=== PATIENT | male | born 1975 | race Caucasian/White ===

== ENCOUNTER → 2019-04-29 15:52 | Outpatient (CLI) | payer OTHER, SELFPAY ==
[2019-04-29 18:37] LABS: CRP < 2.90 mg/L (0.0-3.0)
[2019-05-01 16:08] LABS: Endomysial Antibody IgA Negative (Negative)
[2019-05-01 19:49] LABS: Immunoglobulin A 316 mg/dL (90-386); t-Transglutaminase IgA <2 U/mL (0-3)
== END ==
PROVIDERS: PCP Family Medicine; Referring Provider Internal Medicine Gastroenterology; Visit Provider Internal Medicine Gastroenterology
DX: R10.9 Unspecified abdominal pain (principal); R19.7 Diarrhea, unspecified
CPT/HCPCS: 36415; 82784; 83516; 86140; 86255

== ENCOUNTER → 2024-04-29 | Outpatient (CLI) | payer BC, SELFPAY ==
--- NOTE | 2024-04-29 12:37 | MRI_ITS ---
PROCEDURE: PELVIS W/WO CONTRAST ([id number]), 04/29/2024 REASON FOR EXAM: planning for XRT, eval extent of disease TECHNIQUE: Multisequence multiplanar MRI pelvis was performed with and without IV contrast. CONTRAST: 19 mL Clariscan COMPARISON: Outside exam 02/09/2024. Images only are available for review; the report is not available. Comparison is also made with [facility] PET/CT 04/02/2024. FINDINGS: Note dynamic postcontrast imaging was not performed; an alternative PI-RADS algorithm was therefore utilized. Exam additionally limited by T1 bright presumed post biopsy/procedural blood products scattered throughout the gland. Variable overall mild motion limitation. The effect of these limitations is exacerbated by the small size of the gland. Prostate size: 3.5 x 3.2 x 3.6 cm, estimated volume 21 mL. Interval placement of spacing material which infiltrates through along periprostatic tissue planes on the right with a considerable portion being located in the lateral and anterolateral regions, only a small amount remains situated between the anterior rectum and posterior prostate, which remain directly apposed or near indirectly opposed to the left of midline. Fiducial markers suspected. Transition zone: PI-RADS 2 findings. 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 This is more conspicuous than on 02/09/2024 and was without definite abnormal uptake on comparison PET/CT. *T2 score: Borderline; felt best considered T2 score 3 *DWI score: 3 *DCE: N/A. *Overall PI-RADS: Borderline; felt the best considered PI-RADS 3. *Extracapsular extension:No gross extracapsular extension, however, there is capsular abutment greater than 1 cm which increases the risk of occult early/microscopic extracapsular extension. Note that this includes abutment of the bladder neck without definite invasion. Peripheral Zone: Fairly considerable multifocal background changes of likely prostatitis and/or presumed blood products with areas of mild restricted diffusion, technically meeting criteria for PI-RADS 3 and making delineation of additional discrete lesions challenging (for example,: *Lesion 2: More discrete diffusion signal in the right posterior peripheral zone centered at the level of the midgland to apex, roughly 1.4 cm (series 8, image 18-20). This appears to correlate with the focus of uptake on comparison PET/CT. *T2 score: 4 *DWI score: 3 *DCE: N/A. *Overall PI-RADS: PI-RADS 3 *Extracapsular extension:No gross extracapsular extension, however, there is capsular abutment greater than 1 cm which increases the risk of occult early/microscopic extracapsular extension. Note that this includes the region of the right neurovascular bundle, which appears grossly unremarkable. Neurovascular bundles: As above. Seminal vesicles: Unremarkable. Bladder: Unremarkable. Lymph nodes: Unremarkable. Bones: Heterogeneous marrow signal without destructive or frankly suspicious bony lesions identified. Other: Tiny fat containing left inguinal hernia. Suspected at least a trace right hydrocele.. MRI/Pelvis W/WO Contrast IMPRESSION: 1. Exam limited by presumed postprocedural blood products, small size of the gl and, and ill-defined signal abnormalities throughout the peripheral zone making delineation of discrete lesions challengi ng. 2. Interval placement of spacing material, much of which infiltrates along jayjay prostatic tissue planes on the right with a considerable portion being located in the lateral and anterolateral regions. A small amount remains situated between the anterior rectum and posterior prostate. 3. Ill-defined 1.4 cm PI-RADS 3 lesion in the right posterior peripheral zone c entered at the level of the midgland to apex (lesion 2). This appears to correlate with the focus of uptake on comparison P ET/CT. 4. 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 This is more conspicuous than on the outside exam of 02/09/2024 and demonstrated no definite abnormal uptake on comparison PET/CT. 5. Background multifocal signal abnormalities throughout the remainder of the p eripheral zones which may reflect sequela of prostatitis and/or presumed postprocedural blood products, however technically also borderline meeting criteria for PI-RADS 3, although less convincing than the above lesions 1-2 and very difficult to discr etely measure. 6. No gross extracapsular extension, however, there is capsular abutment greate r than 1 cm by lesions 1 and 2 which increases the risk of occult early/microscopic extracapsular extension. Note that this includ es the region of the right neurovascular bundle and abutment of the bladder neck, without gross invasion of either structure. 7. No overt pelvic lymphadenopathy. 8. Additional description as above. Reading Location: [id number]
== END | disposition home or self-care (01) ==
LOC: MRI 12:27
PROVIDERS: PCP Family Medicine; Referring Provider Student in an Organized Health Care Education/Training Program; Visit Provider Student in an Organized Health Care Education/Training Program
DX: C61 Malignant neoplasm of prostate (principal)
CPT/HCPCS: 72197; A9575; A4216

== ENCOUNTER → 2024-09-20 | Outpatient (CLI) | payer BC, SELFPAY ==
--- OUTSIDE RECORDS SUMMARY | 2024-09-20 07:33 | XMS RPT_ITS | CCD ---
[facility] Organization [facility] Team Providers Care Appeals Nurse Name Role Phone Deacon Harper Unavailable Unavailable FurnessRafy Unavailable Unavailable Deacon Harper Unavailable Deacon Harper Unavailable Arthur Bethea Unavailable Unavailable Arthur Bethea Attending Unavailable Dr. Deacon Harper Jus Primary Care Unava ilable Deacon Harper MD Primary Care Provider [phone] Deacon Harper MD Unavailable [phone] Deacon Harper MD Unavailable [phone] Deacon Harper MD Primary Care Provider [phone] Deacon Harper MD Primary Care Provider [phone] DEACON HARPER Primary Care Unavailable DEACON HARPER Primary Care Unavailable Deacon Harper MD Unavailable [phone] Deacon Harper MD Primary Care Provider [phone] Dr. Deacon Harper MD Primary Care Provider [phone] Maria Porter LPN Attending Provider Unavailab le Dr. Alex Lopez DO Attending Provider Dr. Irena Edouard MD Referring Provider Dr. Alex Lopez DO Referring Provider Deacon Harper MD Unavailable [phone] Deacon Harper MD Primary Care Provider Dr. Alex Lopez DO Referring Provider Dr. Deacon Harper MD Referring Provider [phone] DEACON HARPER Attending Unavailable DEACON HARPER Primary Care Unavailable IRENA EDOUARD Attending Unavailable EDOUARDIRENA Attending Unavailable EDOUARD, IRENA Dasilva Attending Unavailable EDOUARD, IRENA Dasilva Attending Unavailable STENCEL, DEACON Dyson Primary Care Unavailable EDOUARD, IRENA Dasilva Attending Unavailable STENCEL, DEACON Dyson Primary Care Unavailable STENCEL, DEACON D Attending Unavailable STENCEL, DEACON D Referring Unavailable STENCEL, DEACON D Primary Care Unavailable STENCEL, DEACON D Referring Unavailable STENCEL, DEACON D Primary Care Unavailable EDOUARD, IRENA Dasilva Referring Unavailable STENCEL, DEACON Dyson Primary Care Unavailable EDUOARD, IRENA Dasilva Admitting Unavailable EDOUARD, IRENA Dasilva Attending Unavailable STENCEL, DEACON D Primary Care Unavailable EDOUARD, IRENA Dasilva Admitting Unavailable EDOUARD, IRENA Dasilva Attending Unavailable STENCEL, DEACON D Primary Care Unavailable Jessica, Alex Attending Unavailable Jessica, Alex Referring Unavailable Stencel, Deacon Primary Care Unavailable Jessica, Alex Attending Unavailable Jessica, Alex Referring Unavailable Stencel, Deacon Primary Care Unavailable Jessica, Alex Attending Unavailable Jessica, Alex Referring Unavailable Stencel, Deacon Primary Care Unavailable Jessica, Alex Attending Unavailable Stencel, Deacon Primary Care Unavailable Jessica, Alex Referring Unavailable Jessica, Alex Attending Unavailable Jessica, Alex Referring Unavailable Stencel, Deacon Primary Care Unavailable Jessica, Alex Attending Unavailable Jessica, Alex Referring Unavailable Stencel, Deacon Primary Care Unavailable Jessica, Alex Attending Unavailable Stencel, Deacon Primary Care Unavailable Jessica, Alex Referring Unavailable Jessica, Alex Attending Unavailable Stencel, Deacon Primary Care Unavailable Stencel, Deacon Referring Unavailable Jessica, Alex Attending Unavailable Stencel, Deacon Primary Care Unavailable Irena Edouard, II Referring Unavailable Jessica, Alex Attending Unavailable Jessica, Alex Referring Unavailable Stencel, Deacon Primary Care Unavailable Jessica, Alex Attending Unavailable Jessica, Alex Referring Unavailable Stencel, Deacon Primary Care Unavailable Jessica, Alex Attending Unavailable Jessica, Alex Referring Unavailable Stencel, Deacon Primary Care Unavailable Jessica, Alex Attending Unavailable Stencel, Deacon Primary Care Unavailable Jessica, Alex Referring Unavailable Jessica, Alex Attending Unavailable Stencel, Deacon Primary Care Unavailable Stencel, Deacon Primary Care Unavailable Maria Porter Attending Unavailable Medications Current Medications Medication Drug Class(es) Dates Sig (Normalized) Sig (Original) amoxicillin 875 mg / clavulanate 125 mg oral tablet (1 source) Penicillin-class Antibacterial Start: 03-10-2022 End: 03-19-2022 take 1 tablet by mouth twice daily at mealtime amoxicillin-clav ulanate 875 mg-125 mg oral tablet ; 875 milligram(s) orally 2 times a day Quantity: 20 Refills: 0 Ordered: 10-Mar-2022 Arthur Bethea Start: 10-Mar-2022 End: 19-Mar-2022 Generic Substitution Allowed Comments: Finish all this medication unless otherwise directed by prescriber.Take with food or milk. Comment on above: Finish all this medi cation unless otherwise directed by prescriber.Take with food or milk. calcium chloride 0.0014 meq/ml / potassium chloride 0.004 meq/ml / sodium chloride 0.103 meq/ml / sodium lactate 0.028 meq/ml injectable solution (3 sources) Start: 04-23-2024 End: 04-24-2024 take 125 mL intravenously every hour 125 mL/hr, intravenous, Continuous, Starting on Mon04/23/24 at 1230, For 1 day, Recovery (only) Start: 03-05-2024 End: 03-06-2024 take 100 mL intravenously every hour 100 mL/hr, intravenous, Continuous, Starting on Mon03/05/24 at 1145, For 1 day, Recovery (only) ciprofloxacin 500 mg oral tablet (2 sources) Quinolone Antimicrobial Start: 04-23-2024 End: 04-26-2024 take 0.5 tablet by mouth twice daily ciprofloxacin (Cipro) 500 mg tablet Indications: Malignant neoplasm of prostate (Multi) Take 0.5 tablets (250 mg) by mouth 2 times a day for 3 days. 3 tablet 04/23/2024 04/26/2024 Active Start: 02-19-2024 End: 02-22-2024 take 1 tablet by mouth twice daily ciprofloxacin (Cipro) 500 mg tablet Indications: Elevated PSA Take 1 tablet (500 mg) by mouth 2 times a day for 3 days. 6 tablet 02/19/2024 02/22/2024 Active doxycycline hyclate 100 mg oral capsule (1 source) Tetracycline-class Drug Start: 11-14-2023 End: 11-24-2023 doxycycline (Vibramycin) 100 mg capsule Indications: Right inguinal pain Take 1 capsule (100 mg) by mouth 2 times a day for 10 days. Take with at least 8 ounces (large glass) of water, do not lie down for 30 minutes after 20 capsule 1 11/14/2023 11/24/2023 Active 0.5 ml HYDROmorphone hydrochloride 1 mg/ml prefilled syringe (1 source) Opioid Agonist Start: 04-23-2024 0.5 mg, intravenous, Every 5 min PRN, pain severe (7-10), first line, Starting on Mon04/23/24 at 1207, Recovery (only) ibuprofen 600 mg oral tablet (1 source) Nonsteroidal Anti-inflammatory Drug Start: 12-04-2023 End: 12-14-2023 take 1 tablet by mouth twice daily ibuprofen 600 mg tablet Indications: Prostatitis, unspecified prostatitis type Take 1 tablet (600 mg) by mouth 2 times a day for 10 days. 20 tablet 12/04/2023 12/14/2023 Active labetalol hydrochloride 5 mg/ml injectable solution (1 source) beta-Adrenergic Almita Start: 03-05-2024 5 mg, intravenous, Administer over 1 Minutes, Once as needed, systolic blood pressure greater than 180 mmHg, dystolic blood pressure greater than 100 mmHg and heart rate greater than 60 BPM, Starting on Mon03/05/24 at 1119, For 1 dose, Recovery (only) 1 ml morphine sulfate 4 mg/ml prefilled syringe (2 sources) Opioid Agonist Start: 03-05-2024 4 mg, intravenous, Every 5 min PRN, pain severe (7-10), first line, Starting on Mon03/05/24 at 1119, Recovery (only), Max total of 20 mg regardless of dose. Start: 03-05-2024 2 mg, intraven ous, Every 5 min PRN, pain moderate (4-6), first line, Starting on Mon03/05/24 at 1119, Recovery (only), Max total of 20 mg regardless of dose. Multivitamin tablet (1 source) Start: 06-13-2024 Multivitamin tablet Active 1 {tbl} PO daily June 13, 2024 12:00am 2 ml ondansetron 2 mg/ml injection (1 source) Serotonin-3 Receptor Antagonist Start: 03-05-2024 4 mg, intravenous, Once as needed, nausea/vomiting, first line, Starting on Mon03/05/24 at 1119, For 1 dose, Recovery (only), When administering via IV Push, administer over 3-5 minutes. oxyCODONE hydrochloride 5 mg oral tablet (1 source) Opioid Agonist Start: 03-05-2024 take 1 tablet by mouth every four hours as needed 5 mg, oral, Every 4 hours PRN, pain mild (1-3), first line, Starting on Mon03/05/24 at 1119, Recovery (only), When able to take oral medications., If ordered PRN for pain, nurse is permitted to administer this medication for higher pain scores based on patient preference? Yes oxygen (O2) therapy (1 source) Start: 04-23-2024 inhalation, Continuous - Inhalation, First dose on Mon04/23/24 at 1230, Recovery (only), Device: Simple Face Mask, Rate in Liters per minute: 8 LPM prochlorperazine 5 mg/ml injectable solution (1 source) Phenothiazine Start: 04-23-2024 take 10 mg intravenously every eight hours as needed 10 mg, intravenous, Every 8 hours PRN, nausea/vomiting, first line, Starting on Mon04/23/24 at 1207, Recovery (only) promethazine (Phenergan) 6.25 mg in sodium chloride 0.9% 50 mL IV (1 source) Start: 03-05-2024 6.25 mg, intravenous, Administer over 15 Minutes, Once as needed, Nausea/vomiting, second line, Starting on Mon03/05/24 at 1119, For 1 dose, Recovery (only) Relugolix (1 source) Start: 05-21-2024 take 1 tablet by mouth once daily Relugolix (Orgovyx) 120 mg tablet Active 120 mg PO daily May 21, 2024 12:00am relugolix (Orgovyx) 120 mg tablet (2 sources) Start: 05-09-2024 relugolix (Orgovyx) 120 mg tablet Indications: Prostate cancer C61 Take 3 tabs day 1, then 1 po daily 90 tablet 1 05/09/2024 Active sulfamethoxazole 800 mg / trimethoprim 160 mg oral tablet (4 sources) Dihydrofolate Reductase Inhibitor Antibacterial, Sulfonamide Antimicrobial Start: 01-30-2024 End: 02-29-2024 take 1 tablet by mouth once daily sulfamethoxazole- trimethoprim (Bactrim DS) 800-160 mg tablet Indications: Elevated PSA Take 1 tablet by mouth once daily. 30 tablet 01/30/2024 02/29/2024 Active Start: 12-04-2023 End: 01-10-2024 take 1 tablet by mouth twice daily, then take 1 tablet by mouth once daily sulfamethoxazole-trimethoprim (Bactrim D S) 800-160 mg tablet Indications: Prostatitis, unspecified prostatitis type Take 1 tablet BID x 10 days then 1 tablet PO Q DAILY X21 DAYS 41 tablet 12/04/2023 01/10/2024 Discontinued (Med List Cleanup) tadalafil 5 mg oral tablet (3 sources) Phosphodiesterase 5 Inhibitor Start: 07-08-2024 End: 07-08-2025 take 1 tablet by mouth once daily tadalafil (Cialis) 5 mg tablet Indications: Malignant neoplasm of prostate (Multi) Take 1 tablet (5 mg) by mouth once daily. 30 tablet 11 07/08/2024 07/08/2025 Active Completed/Discontinued Medications Medication Drug Class(es) Dates Sig (Normalized) Sig (Original) acetaminophen 325 mg / HYDROcodone bitartrate 5 mg oral tablet (8 sources) Opioid Agonist Start: 04-23-2024 End: 07-08-2024 take 1 tablet by mouth every six hours for pain HYDROcodone-acetami nophen ([place]) 5-325 mg tablet Indications: Malignant neoplasm of prostate (Multi) Take 1 tablet by mouth every 6 hours if needed for severe pain (7 - 10). 20 tablet 04/23/2024 07/08/2024 Discontinued (Med List Cleanup) Start: 03-05-2024 End: 07-08-2024 Hydrocodone-Acetaminophen 5- 325 mg tablet Discontinued 1 {tbl} PO EVERY 6 HOURS as needed March 20, 2024 1:00am March 22, 2024 11:25am [id number] 200 actuat albuterol 0.09 mg/actuat metered dose inhaler (1 source) beta2-Adrenergic Agonist Start: 03-10-2022 take 2 puff(s) by inhalation twice daily as needed for cough albuterol 90 mcg/inh inhalation aerosol ; 2 puff(s) inhaled 2 times a day as needed for cough Quantity: 8.5 Refills: 0 Ordered: 10-Mar-2022 Arthur Bethea Start: 10-Mar-2022 Generic Substitution Allowed Comments: For inhalation only.It is very important that you take or use this exactly as directed. Do not skip doses or discontinue unless directed by your doctor.Obtain medical advice before taking any non-prescription drugs as some may affect the action of this medication.Shake well before use. Comment on above: For inhalation only.It is very important that you take or use this exactly as directed. Do not skip doses or discontinue unless directed by your doctor.Obtain medical advice before taking any non-prescription drugs as some may affect the action of this medication.Shake well before use. gadoterate meglumine (Dotarem) 0.5 mmol/mL contrast injection 19 mL (1 source) Start: 02-09-2024 End: 02-09-2024 inject 19 mL intravenously once 19 mL, intravenous, Once in imaging, Starting on Mon02/09/24 at 1709, For 1 dose, Administer undiluted as rapid I.V. bolus injection 100 ml levoFLOXacin 5 mg/ml injection (1 source) Quinolone Antimicrobial Start: 04-23-2024 End: 04-23-2024 500 mg, intravenous, at 100 mL/hr, Administer over 60 Minutes, Once, On Mon04/23/24 at 0945, For 1 dose, Intraprocedure, premix bag, Dosing of this medication varies based on severity of illness. Does this patient have sepsis or concern for sepsis (probable or documented infection plus systemic manifestations of infection)? No, Suspected Indication (Select all that apply): Surgical Prophylaxis, Indications: Surgical Prophylaxis No Reported Medications (3 sources) No Reported Medications Refills: 0 Active No Reported Medi cations Refills: 0 DO Active phenazopyridine hydrochloride 200 mg oral tablet (2 sources) Start: 04-23-2024 End: 07-08-2024 take 1 tablet by mouth three times daily as needed for muscle spasms phenazopyridine (Pyridium) 200 mg tablet Indications: Malignant neoplasm of prostate (Multi) Take 1 tablet (200 mg) by mouth 3 times a day as needed for bladder spasms. 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] Onset: 08-08-2022 08-08-2022 Chronic Headache; including migraine (1 source) Headache; including migraine; Translations: [Headache, unspecified] Onset: 03-10-2022 Hyperplasia of prostate (19 sources) Benign prostatic hyperplasia; Translations: [Benign prostatic hyperplasia without lower urinary tract symptoms] Onset: 12-04-2023 12-04-2023 Chronic Malaise and fatigue (4 sources) Other malaise; Translations: [Fatigue] Onset: 03-10-2022 01-25-2024 Episodic Other screening for suspected conditions (not mental disorders or infectious disease) (20 sources) Raised prostate specific antigen; Translations: [Elevated prostate specific antigen [PSA]] Onset: 01-25-2024 01-25-2024 Episodic Unclassified (2 sources) COUGH CONGESTION 03-10-2022 Comment on above: COUGH CONGESTION Unclassified (1 source) Cough, unspecified; Translations: [Cough, unspecified] Onset: 03-10-2022 Unclassified (2 sources) Patient encounter status 07-08-2024 Unclassified (4 sources) C61 - Malignant neoplasm of prostate; Translations: [C61 - Malignant neoplasm of prostate] Past or Other Problems Problem Classification Problem Date Documented Da te Episodic/Chronic Abdominal pain (19 sources) Generalized abdominal pain; Translations: [Generalized abdominal pain] Onset: 08-08-2022 08-08-2022 Episodic Acute bronchitis (3 sources) Acute bronchitis; Translations: [Acute bronchitis] Onset: 03-10-2022 03-10-2022 Episodic Fever of unknown origin (13 sources) Fever with chills; Translations: [Fever, unspecified] Onset: 08-08-2022 08-08-2022 Episodic Genitourinary symptoms and ill-defined conditions (17 sources) Nocturia; Translations: [Nocturia] Onset: 01-15-2024 12-04-2023 Episodic Inflammatory conditions of male genital organs (19 sources) Prostatitis; Translations: [Inflammatory disease of prostate, unspecified] Onset: 12-04-2023 12-04-2023 Episodic Other male genital disorders (12 sources) Painful ejaculation; Translations: [Painful ejaculation] Onset: 12-04-2023 12-04-2023 Episodic Other male genital disorders (1 source) Painful ejaculation; Translations: [Painful ejaculation] Onset: 12-04-2023 Episodic Unclassified (10 sources) Onset: 12-04-2023 Resolved: 01-10-2024 12-04-2023 Results Test Name Value Interpretation Reference Range Facility CT CARDIAC SCORING WO IV CON TRASTon 08-08-2024 CT CARDIAC SCORING WO IV CONTRAST Interpreted By: Chong Lind, STUDY: CT CARDIAC SCORING WO IV CONTRAST; 08/08/2024 9:43 am INDICATION: Signs/Symptoms:screen for cardiovascular disease. COMPARISON: None. ACCESSION NUMBER(S): [id number] ORDERING CLINICIAN: DEACON HARPER TECHNIQUE: Using prospective ECG gating, limited CT scan of the chest for evaluation of coronary arteries was performed without intravenous contrast. Coronary calcium scoring was performed according to the method of Agatston. FINDINGS: The score and distribution of calcium in the coronary arteries is as follows: LM: 0. LAD: 0. LCx: 0. RCA: 0. Total: 0. The visualized segments of the lungs are normally expanded. The visualized mid/lower ascending thoracic aorta measures 3.5 cm in diameter. The heart is normal in size. No significant pericardial effusion is present. No gross evidence of mediastinal or hilar lymphadenopathy is identified. The visualized subdiaphragmatic structures appear grossly intact. IMPRESSION: 1. Coronary artery calcium score of 0*. *Coronary artery calcium scoring may be helpful in predicting the risk for future coronary heart disease events. According to the [employer] Clinical Expert Consensus Task Force, such testing provides important prognostic information in patients with more than one coronary heart disease risk factor. The coronary artery calcium score correlates with the annual risk of a non-fatal myocardial infarction or coronary heart disease . Coronary artery score Annual Risk 0-99 0.4% 100-399 1.3% >400 2.4% These three breakpoints correspond to lower, intermediate and high risk states for future coronary events. Such information should be used, along with appropriate clinical judgment, to make decisions regarding the intensity of risk factor management strategies to treat blood lipids and to modify other non-lipid coronary risk factors. Reference: [place] P et al. Circulation. 2007; 115:402-426 MACRO: None Signed by: Chong Lind 08/08/2024 4:50 PM Dictation workstation: [id number] [facility] CT for calcium scoring WO co ntrast and CTA W contrast IV Heart and coronary arterieson 08-08-2024 1. Coronary artery calcium score of 0*. *Coronary artery calcium scoring may be helpful in predicting the risk for future coronary heart disease events. According to the [employer] Clinical Expert Consensus Task Force, such testing provides important prognostic information in patients with more than one coronary heart disease risk factor. The coronary artery calcium score correlates with the annual risk of a non-fatal myocardial infarction or coronary heart disease . Coronary artery score Annual Risk 0-99 0.4% 100-399 1.3% >400 2.4% These three breakpoints correspond to lower, intermediate and high risk states for future coronary events. Such information should be used, along with appropriate clinical judgment, to make decisions regarding the intensity of risk factor management strategies to treat blood lipids and to modify other non-lipid coronary risk factors. Reference: [place] P et al. Circulation. 2007; 115:402-426 MACRO: None Signed by: Chong Lind 08/08/2024 4:50 PM Dictation workstation: [id number] MMODAL Interpreted By: Chong Lind, STUDY: CT CARDIAC SCORING WO IV CONTRAST; 08/08/2024 9:43 am INDICATION: Signs/Symptoms:screen for cardiovascular disease. COMPARISON: None. ACCESSION NUMBER(S): [id number] ORDERING CLINICIAN: DEACON HARPER TECHNIQUE: Using prospective ECG gating, limited CT scan of the chest for evaluation of coronary arteries was performed without intravenous contrast. Coronary calcium scoring was performed according to the method of Agatston. FINDINGS: The score and distribution of calcium in the coronary arteries is as follows: LM: 0. LAD: 0. LCx: 0. RCA: 0. Total: 0. The visualized segments of the lungs are normally expanded. The visualized mid/lower ascending thoracic aorta measures 3.5 cm in diameter. The heart is normal in size. No significant pericardial effusion is present. No gross evidence of mediastinal or hilar lymphadenopathy is identified. The visualized subdiaphragmatic structures appear grossly intact. MMODAL Chong Lind, DO - 08/08/2024 Interpreted By: Chong Lind, STUDY: CT CARDIAC SCORING WO IV CONTRAST; 08/08/2024 9:43 am INDICATION: Signs/Symptoms:screen for cardiovascular disease. COMPARISON: None. ACCESSION NUMBER(S): [id number] ORDERING CLINICIAN: DEACON HARPER TECHNIQUE: Using prospective ECG gating, limited CT scan of the chest for evaluation of coronary arteries was performed without intravenous contrast. Coronary calcium scoring was performed according to the method of Agatston. FINDINGS: The score and distribution of calcium in the coronary arteries is as follows: LM: 0. LAD: 0. LCx: 0. RCA: 0. Total: 0. The visualized segments of the lungs are normally expanded. The visualized mid/lower ascending thoracic aorta measures 3.5 cm in diameter. The heart is normal in size. No significant pericardial effusion is present. No gross evidence of mediastinal or hilar lymphadenopathy is identified. The visualized subdiaphragmatic structures appear grossly intact. IMPRESSION: 1. Coronary artery calcium score of 0*. *Coronary artery calcium scoring may be helpful in predicting the risk for future coronary heart disease events. According to the [employer] Clinical Expert Consensus Task Force, such testing provides important prognostic information in patients with more than one coronary heart disease risk factor. The coronary artery calcium score correlates with the annual risk of a non-fatal myocardial infarction or coronary heart disease . Coronary artery score Annual Risk 0-99 0.4% 100-399 1.3% >400 2.4% These three breakpoints correspond to lower, intermediate and high risk states for future coronary events. Such information should be used, along with appropriate clinical judgment, to make decisions regarding the intensity of risk factor management strategies to treat blood lipids and to modify other non-lipid coronary risk factors. Reference: [place] P et al. Circulation. 2007; 115:402-426 MACRO: None Signed by: Chong Lind 08/08/2024 4:50 PM Dictation workstation: [id number] [facility] Work Phone: Radiology Study observation (narrative) [facility] Work Phone: CT for calcium scoring WO co ntrast and CTA W contrast IV Heart and coronary arteriesOrdered By: Chong Lind on 08-08-2024 [facility] Work Phone: Radiation Oncology Visiton 0 07-19-2024 Radiation Oncology Visit [facility] [place] [address] OFFICE VISIT Date of Service: 07/19/24810 MR#: [id number] Acct: [id number] Name: BASIM ROMERO Rep #: [id number] : 1975 From: Alex Lopez DO Age/Sex: 49/M [place] [facility] [place]: Signed Intake Vital Signs 06/18/24 08:13 07/19/24 08:12 Height 6 ft 6 ft Weight: 202 lb 9 oz 201 lb 8 oz BMI 27.4 27.3 BP 138/86 H 136/87 H Blood Pressure Location Rt brachial Rt brachial Position Sitting Sitting Respiration 18 16 Pulse 78 94 Pulse Source Monitor Monitor Temp 96.8 F L 97.0 F L Temperature Source Temporal Artery Temporal Artery Pulse Oximetry (%) 99 100 Oxygen Delivery Method room air room air Intake Visit Reasons: 1 MONTH F/U POST RT Is patient in pain?: No Allergies No Known Allergies Allergy (Unverified 07/19/24 08:11) Medications ???Medication ???Instructions ???Recorded ???Confirmed ???Type relugolix 120 mg tablet (Orgovyx) 120 mg PO QDAY 05/21/24 07/19/24 History multivitamin 1 tab PO QDAY 06/13/24 07/19/24 Hi story tadalafil 5 mg tablet (Cialis) 5 mg PO QDAY 07/19/24 07/19/24 His tory PFSH PFSH Medical History (Updated 07/19/24 @ 08:12 by Carmel Mak) Erectile dysfunction Anal fissure Home Medications ???Medication ???Instructions ???Recorded ???Last Taken ???Type relugolix 120 mg tablet (Orgovyx) 120 mg PO QDAY 05/21/24 Unknown H istory multivitamin 1 tab PO QDAY 06/13/24 Unknown His tory tadalafil 5 mg tablet (Cialis) 5 mg PO QDAY 07/19/24 Unknown Hist ory Allergy/AdvReac Type Severity Reaction Status Date / Time No Known Allergies Allergy Unverified 07/19/24 08:11 Family History Father Pancreatic cancer Grandfather Prostate cancer Surgical History History of toe surgery History of prostate biopsy History of appendectomy Social History household members: spouse and children current occupational status: employed Smoking Status: Former smoker quit date: 02/20/02 Tobacco: How many years used: 2 Smokeless tobacco user: chewing tobacco alcohol intake: current alcohol intake frequency: a few times a week substance use type: does not use Diagnosis: Basim Cummings is 49-year-old male diagnosed with 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 From 05/13/2024 ??? 06/19/2024 he received definitive radiation therapy with ADT. History of Present Illness: 02/09/2024: Patient completed MRI prostate.??? This demonstrated a lesion in the right peripheral zone mid gland demonstrating equivocal diffusion restriction and early arterial enhancement consistent with a PI-RADS 4 lesion.??? This lesion is seen along the capsule without obvious extracapsular extension.??? No seminal vesicle invasion is noted.??? No abnormally enlarged lymph nodes are noted. 03/05/2024: Patient completed prostate biopsy.??? Pathology demonstrated Yung 4+3 adenocarcinoma involving 3/6 cores within the right prostate, 2/7 cores within the left prostate, and 5/7 cores in the area of interest biopsy #1 04/02/2024: Patient completed PSMA PET scan.??? This demonstrated primary malignancy in the peripheral zone of the right aspect of the prostate.??? Negative for metastasis. 04/29/2024: Patient completed pelvic MRI with and without contrast.??? This demonstrated several PI- RADS 3 lesions, space OAR placement, no adenopathy or other abnormalities such as extracapsular extension or seminal vesicle invasion. From 05/13/2024 ??? 06/19/2024: received definitive radiation therapy consisting of 7000 cGy delivered to the prostate and seminal vesicles and 5040 cGy delivered to the at risk pelvic lymph nodes all in 28 fractions. He was treated with a VMAT plan using 10 MV photons. Radiation Treatment History: 1) From 05/13/2024 ??? 06/19/2024: received definitive radiation therapy consisting of 7000 cGy delivered to the prostate and seminal vesicles and 5040 cGy delivered to the at risk pelvic lymph nodes all in 28 fractions. He was treated with a VMAT plan using 10 MV photons. Interval History: Patient presents for one month follow up after completing adjuvant radiation therapy. Reports doing well overall. Has had improvement in urinary symptoms, not taking medications. Has urgency almost always, intermittency and weak stream more than half the time, frequency about half the time, incomplete emptying and straining less than half the time. Nocturia about 2 times per night. No loose stool or constipation, no rectal darnell (more content not included)... Normal [facility] CBC (H/H, RBC, INDICES, WBC, PLT)on 07-09-2024 Erythrocyte distribution width (RBC) [Ratio] 13.0 % Normal 11.0-15.0 [facility] Comment on above: Performed By: #### 1 788, 37385, 1376 #### [facility] [place] [address] Regional Marketing Manager: Pablo Edwards MD Hematocrit (Bld) [Volume fraction] 42.7 % Normal 38.5-50.0 [facility] Comment on above: Performed By: #### 1 654, 14725, 7491 #### [facility] [place] [address] Regional Marketing Manager: Pablo Edwards MD Hemoglobin (Bld) [Mass/Vol] 14.2 g/dL Normal 13.2-17.1 [facility] Comment on above: Performed By: #### 1 817, 32508, 2585 #### [facility] [place] [address] Regional Marketing Manager: Pablo Edwards MD MCH (RBC) [Entitic mass] 31.1 pg Normal 27.0-33.0 [facility] Comment on above: Performed By: #### 1 759, 05089, 7600 #### [facility] [place] [address] Regional Marketing Manager: Pablo Edwards MD MCHC (RBC) [Mass/Vol] 33.3 g/dL Normal 32.0-36.0 [facility] Comment on above: Result Comment: For adults, a slight decrease in the calculated MCHC value (in the range of 30 to 32 g/dL) is most likely not clinically significant; however, it should be interpreted with caution in correlation with other red cell parameters and the patient's clinical condition. Performed By: #### 1 759, 99709, 6540 #### [facility] [place] [address] Regional Marketing Manager: Pablo Edwards MD MCV (RBC) [Entitic vol] 93.4 fL Normal 80.0-100.0 [facility] Comment on above: Performed By: #### 1 75, 92995, 9220 #### [facility] [place] [address] Regional Marketing Manager: Pablo Edwards MD Platelet mean volume (Bld) [Entitic vol] 10.0 fL Normal 7.5-12.5 [facility] Comment on above: Performed By: #### 1 759, 20353, 1610 #### [facility] [place] [address] Regional Marketing Manager: Pablo Edwards MD Platelets (Bld) [#/Vol] 184 10*3/uL Normal 140-400 [facility] Comment on above: Performed By: #### 1 759, 29238, 7600 #### [facility] [place] [address] Regional Marketing Manager: Pablo Edwards MD RBC (Bld) [#/Vol] 4.57 10*6/uL Normal 4.20-5.80 [facility] Comment on above: Performed By: #### 1 759, 40062, 7600 #### [facility] of [place] [address] Regional Marketing Manager: Pablo Edwards MD WBC (Bld) [#/Vol] 3.7 10*3/uL Low 3.8-10.8 [facility] Comment on above: Performed By: #### 1 759, 61800, 7600 #### [facility] of [place] [address] Regional Marketing Manager: Pablo Edwards MD COMPREHENSIVE METABOLIC PANE L W/ANION GAPon 07-09-2024 Albumin [Mass/Vol] 4.6 g/dL Normal 3.6-5.1 [facility] Comment on above: Performed By: #### 1 759, 35287, 7600 #### [facility] of [place] [address] Regional Marketing Manager: Pablo Edwards MD ALP [Catalytic activity/Vol] 56 U/L Normal 35-144 [facility] Comment on above: Performed By: #### 1 759, 19673, 7600 #### [facility] of [place] [address] Regional Marketing Manager: Pablo Edwards MD ALT [Catalytic activity/Vol] 44 U/L Normal 9-46 [facility] Comment on above: Performed By: #### 1 759, 80712, 7600 #### [facility] of [place] [address] Regional Marketing Manager: Pablo Edwards MD AST [Catalytic activity/Vol] 25 U/L Normal 10-35 [facility] Comment on above: Performed By: #### 1 759, 25916, 7600 #### [facility] of [place] [address] Regional Marketing Manager: Pablo Edwards MD Bilirubin [Mass/Vol] 0.6 mg/dL Normal 0.2-1.2 [facility] Comment on above: Performed By: #### 1 759, 54450, 7600 #### [facility] of [place] [address] Regional Marketing Manager: Pablo Edwards MD Calcium [Mass/Vol] 9.2 mg/dL Normal 8.6-10.3 [facility] Comment on above: Performed By: #### 1 759, 74254, 7600 #### [facility] of [place] [address] Regional Marketing Manager: Pablo Edwards MD Chloride [Moles/Vol] 103 mmol/L Normal 98-110 [facility] Comment on above: Performed By: #### 1 759, 34235, 7600 #### [facility] [place] [address] Regional Marketing Manager: Pablo Edwards MD CO2 [Moles/Vol] 27 mmol/L Normal 20-32 [facility] Comment on above: Performed By: #### 1 759, 91395, 7600 #### [facility] [place] [address] Regional Marketing Manager: Pablo Edwards MD Creatinine [Mass/Vol] 1.03 mg/dL Normal 0.70-1.30 [facility] Comment on above: Performed By: #### 1 759, 34792, 7600 #### [facility] of [place] [address] Regional Marketing Manager: Pablo Edwards MD ELECTROLYTE BALANCE 8 mmol/L (calc) Normal 7-17 [facility] Comment on above: Performed By: #### 1 759, 68574, 7600 #### [facility] of [place] [address] Regional Marketing Manager: Pablo Edwards MD GFR/1.73 sq M.predicted among non-blacks MDRD (S/P/Bld) [Vol rate/Area] 88 mL/min/{1.73_m2} Normal > OR = 60 [facility] Comment on above: Performed By: #### 1 759, 00376, 7600 #### [facility] of [address], [address] [place] [address] Regional Marketing Manager: Pablo Edwards MD Glucose [Mass/Vol] 84 mg/dL Normal 65-99 [facility] Comment on above: Result Comment: Fasting reference interval Performed By: #### 1 759, 43444, 7600 #### [facility] of [address], [address] [place] [address] Regional Marketing Manager: Pablo Edwards MD Potassium [Moles/Vol] 4.2 mmol/L Normal 3.5-5.3 [facility] Comment on above: Performed By: #### 1 759, 57438, 7600 #### [facility] of [place] [address] Regional Marketing Manager: Pablo Edwards MD Protein [Mass/Vol] 7.0 g/dL Normal 6.1-8.1 [facility] Comment on above: Performed By: #### 1 759, 08732, 7600 #### [facility] of [address], [address] [place] [address] Regional Marketing Manager: Pablo Edwards MD Sodium [Moles/Vol] 138 mmol/L Normal 135-146 [facility] Comment on above: Performed By: #### 1 759, 46813, 7600 #### [facility] of [address], [address] [place] [address] Regional Marketing Manager: Pablo Edwards MD Urea nitrogen [Mass/Vol] 17 mg/dL Normal 7-25 [facility] Comment on above: Performed By: #### 1 759, 33519, 7600 #### [facility] of [place] [address] Regional Marketing Manager: Pablo Edwards MD LIPID PANEL, [facility] 06-21 Cholesterol [Mass/Vol] 240 mg/dL High <200 [facility] Comment on above: Order Comment: FASTI NG:YES FASTING: YES Performed By: #### 1 759, 69296, 7600 #### [facility] [address], [address] [place] [address] Regional Marketing Manager: Pablo Edwards MD Cholesterol in HDL [Mass/Vol] 63 mg/dL Normal > OR = 40 [facility] Comment on above: Order Comment: FASTI NG:YES FASTING: YES Performed By: #### 1 289, 86790, 2540 #### [facility] [address], [address] [place] [address] Regional Marketing Manager: Pablo Edwards MD Cholesterol in LDL [Mass/Vol] 137 mg/dL High [facility] Comment on above: Order Comment: FASTI NG:YES FASTING: YES Result Comment: Refe rence range: <100 Desirable range <100 mg/dL for primary prevention; <70 mg/dL for patients with CHD or diabetic patients with > or = 2 CHD risk factors. LDL-C is now calculated using the Eduardo calculation, which is a validated novel method providing better accuracy than the Friedewald equation in the estimation of LDL-C. Juan VILLARREAL et al. TAMANNA. 2013;310(19): 5719-8531 (http://education.[employer]/faq/EEK387) Performed By: #### 1 919, 44794, 3747 #### [facility] [address], [address] [place] [address] Regional Marketing Manager: Pablo Edwards MD Cholesterol.total/C holesterol in HDL [Mass ratio] 3.8 {ratio} Normal <5.0 [facility] Comment on above: Order Comment: FASTI NG:YES FASTING: YES Performed By: #### 1 359, 81378, 5130 #### [facility] [address], [address] [place] [address] Regional Marketing Manager: Pablo Edwards MD NON HDL CHOLESTEROL 177 mg/dL (calc) High <130 [facility] Comment on above: Order Comment: FASTI NG:YES FASTING: YES Result Comment: For patients with diabetes plus 1 major ASCVD risk factor, treating to a non-HDL-C goal of <100 mg/dL (LDL-C of <70 mg/dL) is considered a therapeutic option. Performed By: #### 1 759, 91551, 7600 #### [facility] [address] [facility], [address] [place] [address] Regional Marketing Manager: Pablo Edwards MD Triglyceride [Mass/Vol] 257 mg/dL High <150 [facility] Comment on above: Order Comment: FASTI NG:YES FASTING: YES Result Comment: If a non-fasting specimen was collected, consider repeat triglyceride testing on a fasting specimen if clinically indicated. Chelsie et al. J. of Clin. Lipidol. 2015;9:129-169. Performed By: #### 1 759, 65309, 7600 #### [facility] [address] [place] [address], [address] [place] [phone] Regional Marketing Manager: Pablo Edwards MD Radiation Oncology Visiton 0 06-19-2024 Radiation Oncology Visit [address] [address] OFFICE VISIT Date of Service: 06/19/24 0911 MR#: [id number] Acct: [id number] Name: BASIM ROMERO Rep #: [id number] : 1975 From: Alex Lopez DO Age/Sex: 49/M [place] [facility] [place] Status: Signed End of Treatment Summary: Diagnosis: Basim Cummings is 49-year-old male diagnosed with 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 Oncologic History: 02/09/2024: Patient completed MRI prostate.??? This demonstrated a lesion in the right peripheral zone mid gland demonstrating equivocal diffusion restriction and early arterial enhancement consistent with a PI-RADS 4 lesion.??? This lesion is seen along the capsule without obvious extracapsular extension.??? No seminal vesicle invasion is noted.??? No abnormally enlarged lymph nodes are noted. 03/05/2024: Patient completed prostate biopsy.??? Pathology demonstrated Cary 4+3 adenocarcinoma involving 3/6 cores within the right prostate, 2/7 cores within the left prostate, and 5/7 cores in the area of interest biopsy #1 04/02/2024: Patient completed PSMA PET scan.??? This demonstrated primary malignancy in the peripheral zone of the right aspect of the prostate.??? Negative for metastasis. 04/29/2024: Patient completed pelvic MRI with and without contrast.??? This demonstrated several PI- RADS 3 lesions, space O AR placement, no adenopathy or other abnormalities such as extracapsular extension or seminal vesicle invasion. Radiation Treatment History: None The patient completed a course of external beam radiotherapy in our department. This treatment was delivered for curative intent. Treatment was given according to the following parameters: BASIM ROMERO received definitive radiation therapy consisting of 7000 cGy delivered to the prostate and seminal vesicles and 5040 cGy delivered to the at risk pelvic lymph nodes all in 28 fractions. He was treated with a VMAT plan using 10 MV photons. The patient did receive concurrent ADT. Date of First Treatment: 05/13/2024 Date of Last Treatment: 06/19/2024 Total Elapsed Days (including weekend and holidays): 37 Missed Treatments: none Response and Tolerance: The patient tolerated this course of radiotherapy well overall. The following radiation related toxicities developed during the course of radiation therapy: * Grade 1 fatigue * Grade 1 diarrhea which was treated with prn imodium * Grade 1 LUTS Total weight change during therapy: N/A Disposition: The patient tolerated the planned course of radiation therapy well without unexpected toxicity in an appropriate time course. I reviewed management of potential toxicities and discussed expected timing for toxicity resolution. I will have BASIM follow-up in one month for a routine visit. BASIM will maintain follow up with all other providers. BASIM was instructed to call with any further questions or concerns in the interim. If we can provide any further information on this patient's course of care, please do not hesitate to ask. We would like to thank you very much for allowing us to participate in the care of this patient. Sincerely, Alex Lopez DO, MS Estimator, Department of Radiation Oncology [facility] 06/19/24 0916 Date Alex Lopez DO [facility] Signature: Date (if applicable) CC: Dr. Deacon Harper MD Normal [facility] Radiation Oncology Visiton 0 06-18-2024 Radiation Oncology Visit [facility] [address] [place] [address] OFFICE VISIT Date of Service: 06/18/24808 MR#: [id number] Acct: [id number] Name: BASIM ROMERO Rep #: [id number] : 1975 From: Alex Lopez DO Age/Sex: 49/M [place] [facility] [place]: Signed Intake Vital Signs 03/22/24 10:28 06/18/24 08:13 Height 6 ft 6 ft Weight: 202 lb 9 oz BMI 27.4 BP 138/86 H Blood Pressure Location Rt brachial Position Sitting Respiration 18 Pulse 78 Pulse Source Monitor Temp 96.8 F L Temperature Source Temporal Artery Pulse Oximetry (%) 99 Oxygen Delivery Method room air Intake Visit Reasons: OTV Is patient in pain?: No Allergies No Known Allergies Allergy (Unverified 06/18/24 08:13) Medications ???Medication ???Instructions ???Recorded ???Confirmed ???Type relugolix 120 mg tablet (Orgovyx) 120 mg PO QDAY 05/21/24 06/18/24 History multivitamin 1 tab PO QDAY 06/13/24 06/18/24 Hi story PFSH PFSH Medical History Anal fissure Home Medications ???Medication ???Instructions ???Recorded ???Last Taken ???Type relugolix 120 mg tablet (Orgovyx) 120 mg PO QDAY 05/21/24 Unknown H istory multivitamin 1 tab PO QDAY 06/13/24 Unknown His tory Allergy/AdvReac Type Severity Reaction Status Date / Time No Known Allergies Allergy Unverified 06/18/24 08:13 Family History Father Pancreatic cancer Grandfather Prostate cancer Surgical History History of toe surgery History of prostate biopsy History of appendectomy Social History household members: spouse and children current occupational status: employed Smoking Status: Former smoker quit date: 02/20/02 Tobacco: How many years used: 2 Smokeless tobacco user: chewing tobacco alcohol intake: current alcohol intake frequency: a few times a week substance use type: does not use Diagnosis: Basim Cummings is a 49-year-old male diagnosed with 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 Plan: Plan was made to complete definitive radiation therapy consisting of 7000 cGy delivered to the prostate and seminal vesicles and 5040 cGy delivered to the at risk pelvic lymph nodes all in 28 fractions. Treatment Data: Treatment Site: Prostate/SV and nodes Current total dose/Total dose planned: 6750 cGy / 7000 cGy Fraction number: Chemotherapy: ADT Subjective: Pain: 0 / 10 Fatigue: none Skin: no erythema, rash, desquamation GI: mild infrequent loose stool; resolved with imodium. Mild rectal pain 2/10 with BM, blood with wiping on occasion. No bloating or increased gas : mild weak stream, otherwise no increase urinary symptoms. faint dysuria, no hematuria Back pain resolved after about one week. Objective: Weight: 202 lbs 9 oz Physical Exam: Gen: NAD Skin: no erythema, rash, desquamation. Assessment Plan Assessment/Plan (1) Cancer of prostate with intermediate recurrence risk (stage T2b-c or Yung 7 or PSA 10-20): PLAN: Plan Assessment: Tolerating treatment well overall.??? I reviewed and approved all treatment associated imaging. mild loose stool, imodium prn mild rectal irritation, will observe, consider suppository if worsens : grade 1 LUTS Severe back pain resolved Plan: Continue treatment as planned.??? Will finish tomorrow I have reviewed potential treatment associated toxicities as well as timing for resolution and management. Follow up in one month or sooner if needed. Thank you for allowing me to participate in the management and care of your patient. If I may answer any questions in the interim, please do not hesitate to contact me at any time. Alex Lopez DO, MS Estimator, Department of Radiation Oncology [facility] Coding Level of Care Code Radiation Tx Management x5 Diagnoses Cancer of prostate with intermediate recurrence risk (stage T2b-c or Yung 7 or PSA 10-20) C61 06/18/24 0829 Date Alex Lopez DO [facility] Signature: Date (if applicable) CC: Normal [facility] Radiation Oncology Visiton 0 06-13-2024 Radiation Oncology Visit [facility] [address] [place] [address] OFFICE VISIT Date of Service: 06/13/24802 MR#: [id number] Acct: [id number] Name: BASIM ROMERO Rep #: [id number] : 1975 From: Alex Lopez DO Age/Sex: 49/M [place] [facility] [place]: Signed Intake Vital Signs 03/22/24 10:28 06/06/24 08:18 06/13/24 08:12 Height 6 ft 6 ft 6 ft Weight: 204 lb 7 oz 201 lb BMI 27.7 27.2 BP 144/96 H 116/90 H Blood Pressure Location Rt brachial Rt brachial Position Sitting Sitting Respiration 18 18 Pulse 77 91 Pulse Source Monitor Monitor Temp 96.8 F L 97.6 F L Temperature Source Temporal Artery Temporal Artery Pulse Oximetry (%) 100 98 Oxygen Delivery Method room air room air Intake Visit Reasons: OTV Is patient in pain?: No Allergies No Known Allergies Allergy (Unverified 06/13/24 08:13) Medications ???Medication ???Instructions ???Recorded ???Confirmed ???Type relugolix 120 mg tablet (Orgovyx) 120 mg PO QDAY 05/21/24 06/13/24 History multivitamin 1 tab PO QDAY 06/13/24 06/13/24 Hi story PFSH PFSH Medical History Anal fissure Home Medications ???Medication ???Instructions ???Recorded ???Last Taken ???Type relugolix 120 mg tablet (Orgovyx) 120 mg PO QDAY 05/21/24 Unknown H istory multivitamin 1 tab PO QDAY 06/13/24 Unknown His tory Allergy/AdvReac Type Severity Reaction Status Date / Time No Known Allergies Allergy Unverified 06/13/24 08:13 Family History Father Pancreatic cancer Grandfather Prostate cancer Surgical History History of toe surgery History of prostate biopsy History of appendectomy Social History household members: spouse and children current occupational status: employed Smoking Status: Former smoker quit date: 02/20/02 Tobacco: How many years used: 2 Smokeless tobacco user: chewing tobacco alcohol intake: current alcohol intake frequency: a few times a week substance use type: does not use Diagnosis: Basim Cummings is a 49-year-old male diagnosed with 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 Plan: Plan was made to complete definitive radiation therapy consisting of 7000 centigrade delivered to the prostate and seminal vesicles and 5040 centigrade delivered to the at risk pelvic lymph nodes all in 28 fractions. Treatment Data: Treatment Site: Prostate/SV and nodes Current total dose/Total dose planned: 6000 cGy / 7000 cGy Fraction number: Chemotherapy: ADT Subjective: Pain: 0 / 10 Fatigue: none Skin: no erythema, rash, desquamation GI: mild infrequent loose stool; resolved with imodium. Mild rectal pain 2/10 with BM, blood with wiping on occasion. No bloating or increased gas : no increase urinary symptoms. faint dysuria, no hematuria Back pain resolved after about one week. Objective: Weight: 201 lbs Physical Exam: Gen: NAD Skin: no erythema, rash, desquamation. Assessment Plan Assessment/Plan (1) Cancer of prostate with intermediate recurrence risk (stage T2b-c or Cary 7 or PSA 10-20): PLAN: Plan Assessment: Tolerating treatment well overall.??? I reviewed and approved all treatment associated imaging. mild loose stool, imodium prn mild rectal irritation, will observe, consider suppository if worsens Severe back pain resolved Plan: Continue treatment as planned.??? I have reviewed potential treatment associated toxicities as well as timing for resolution and management. Follow up next week or sooner if needed. Thank you for allowing me to participate in the management and care of your patient. If I may answer any questions in the interim, please do not hesitate to contact me at any time. Alex Lopez DO, MS Estimator, Department of Radiation Oncology [facility] Coding Level of Care Code Radiation Tx Management x5 Diagnoses Cancer of prostate with intermediate recurrence risk (stage T2b-c or Yung 7 or PSA 10-20) C61 06/13/24 0849 Date Alex Marshall Signature: Date (if applicable) CC: Normal [facility] Radiation Oncology Visiton 0 06-06-2024 Radiation Oncology Visit [facility] [place] [address] OFFICE VISIT Date of Service: 06/06/24812 MR#: [id number] Acct: [id number] Name: BASIM ROMERO Rep #: [id number] : 1975 From: Alex Lopez DO Age/Sex: 49/M [place] [facility] [place] Signed Intake Vital Signs 03/22/24 10:28 05/29/24 08:06 06/06/24 08:18 Height 6 ft 6 ft 6 ft Weight: 204 lb 7 oz BMI 27.7 BP 144/96 H Blood Pressure Location Rt brachial Position Sitting Respiration 18 Pulse 77 Pulse Source Monitor Temp 96.8 F L Temperature Source Temporal Artery Pulse Oximetry (%) 100 Oxygen Delivery Method room air Intake Visit Reasons: OTV Is patient in pain?: No Allergies No Known Allergies Allergy (Unverified 06/06/24 08:18) Medications ???Medication ???Instructions ???Recorded ???Confirmed ???Type relugolix 120 mg tablet (Orgovyx) 120 mg PO QDAY 05/21/24 06/06/24 History PFSH PFSH Medical History Anal fissure Home Medications ???Medication ???Instructions ???Recorded ???Last Taken ???Type relugolix 120 mg tablet (Orgovyx) 120 mg PO QDAY 05/21/24 Unknown H istory Allergy/AdvReac Type Severity Reaction Status Date / Time No Known Allergies Allergy Unverified 06/06/24 08:18 Family History Father Pancreatic cancer Grandfather Prostate cancer Surgical History History of toe surgery History of prostate biopsy History of appendectomy Social History household members: spouse and children current occupational status: employed Smoking Status: Former smoker quit date: 02/20/02 Tobacco: How many years used: 2 Smokeless tobacco user: chewing tobacco alcohol intake: current alcohol intake frequency: a few times a week substance use type: does not use Diagnosis: Basim Cummings is a 49-year-old male diagnosed with 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 Plan: Plan was made to complete definitive radiation therapy consisting of 7000 centigrade delivered to the prostate and seminal vesicles and 5040 centigrade delivered to the at risk pelvic lymph nodes all in 28 fractions. Treatment Data: Treatment Site: Prostate/SV and nodes Current total dose/Total dose planned: 4750 cGy / 7000 cGy Fraction number: Chemotherapy: ADT Subjective: Pain: 0 / 10 Fatigue: none Skin: no erythema, rash, desquamation GI: mild infrequent loose stool; resolved with imodium. No rectal pain or bleeding. No bloating or increased gas : no increase urinary symptoms. No dysuria or hematuria Back pain now gone. Patient reports that pain specialist he saw thought back pain was not due to gel, but to nicking nerve during injection. Objective: Weight: 204 lbs 7 oz Physical Exam: Gen: NAD Skin: no erythema, rash, desquamation. Assessment Plan Assessment/Plan (1) Cancer of prostate with intermediate recurrence risk (stage T2b-c or Cary 7 or PSA 10-20): PLAN: Plan Assessment: Tolerating treatment well overall.??? I reviewed and approved all treatment associated imaging. mild loose stool, imodium prn Severe back pain, suspected from space OAR due to timing, some spread to the right side consistent with pain, planning to have him see pain management, pain is much better this week Plan: Continue treatment as planned.??? I have reviewed potential treatment associated toxicities as well as timing for resolution and management. Follow up next week or sooner if needed. Thank you for allowing me to participate in the management and care of your patient. If I may answer any questions in the interim, please do not hesitate to contact me at any time. Alex Lopez DO, MS Estimator, Department of Radiation Oncology [facility] Coding Level of Care Code Radiation Tx Management x5 Diagnoses Cancer of prostate with intermediate recurrence risk (stage T2b-c or Yung 7 or PSA 10-20) C61 06/06/24 0830 Date Alex Graham Signature: Date (if applicable) CC: Normal [facility] Radiation Oncology Visiton 0 05-29-2024 Radiation Oncology Visit [facility] [address] [place] [address] OFFICE VISIT Date of Service: 05/29/24 0800 MR#: [id number] Acct: [id number] Name: BASIM ROMERO Rep #: [id number] : 1975 From: Jus Emerson MD Age/Sex: 49/M [place] [facility] [place] Status: Signed Intake Vital Signs 03/22/24 10:28 05/21/24 08:22 05/29/24 08:06 Height 6 ft 6 ft 6 ft Weight: 206 lb 1 oz 206 lb BMI 27.9 27.9 BP 125/89 H 140/88 H Blood Pressure Location Rt brachial Rt brachial Position Sitting Sitting Respiration 18 16 Pulse 88 87 Pulse Source Monitor Monitor Temp 98.1 F 96.9 F L Temperature Source Temporal Artery Temporal Artery Pulse Oximetry (%) 97 100 Oxygen Delivery Method room air room air Intake Visit Reasons: OTV Is patient in pain?: No Allergies No Known Allergies Allergy (Unverified 05/29/24 08:06) Medications ???Medication ???Instructions ???Recorded ???Confirmed ???Type relugolix 120 mg tablet (Orgovyx) 120 mg PO QDAY 05/21/24 05/29/24 History PFSH PFSH Medical History Anal fissure Home Medications ???Medication ???Instructions ???Recorded ???Last Taken ???Type relugolix 120 mg tablet (Orgovyx) 120 mg PO QDAY 05/21/24 Unknown H istory Allergy/AdvReac Type Severity Reaction Status Date / Time No Known Allergies Allergy Unverified 05/29/24 08:06 Family History Father Pancreatic cancer Grandfather Prostate cancer Surgical History History of toe surgery History of prostate biopsy History of appendectomy Social History household members: spouse and children current occupational status: employed Smoking Status: Former smoker quit date: 02/20/02 Tobacco: How many years used: 2 Smokeless tobacco user: chewing tobacco alcohol intake: current alcohol intake frequency: a few times a week substance use type: does not use Diagnosis: Basim Cummings is a 48-year-old male diagnosed with 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 Plan: Plan was made to complete definitive radiation therapy consisting of 7000 centigrade delivered to the prostate and seminal vesicles and 5040 centigrade delivered to the at risk pelvic lymph nodes all in 28 fractions. Treatment Data: Treatment Site: Prostate/SV and nodes Current total dose/Total dose planned: 3250 cGy / 7000 cGy Fraction number: Chemotherapy: None, planning ADT but doesn't have yet Subjective: Pain: 0 / 10 Fatigue: none Skin: no erythema, rash, desquamation GI: one instance of diarrhea; resolved with immodium/constipation absent. No rectal pain or bleeding. No bloating or increased gas : no increase urinary symptoms. No dysuria or hematuria Back pain now gone. Patient reports that pain specialist he saw thought back pain was not due to gel, but to nicking nerve during injection. Objective: Weight: 206 lbs 0 oz Physical Exam: Gen: NAD Skin: no erythema, rash, desquamation. Assessment Plan Assessment/Plan (1) Cancer of prostate with intermediate recurrence risk (stage T2b-c or Yung 7 or PSA 10-20): PLAN: Plan Assessment: Tolerating treatment well overall; used immodium over weekend during one instance of diarrhea; now bowels back to normal. .??? I reviewed and approved all treatment associated imaging. No treatment associated toxicities are noted at this time Back pain now gone; thuoght by pain specialist due to nicking nerve during injection, not due to irritation from gel itself. Plan: Continue treatment as planned.??? I have reviewed potential treatment associated toxicities as well as timing for resolution and management. Follow up next week or sooner if needed. Thank you for allowing me to participate in the management and care of your patient. If I may answer any questions in the interim, please do not hesitate to contact me at any time. Assessment Plan Assessment/Plan (1) Cancer of prostate with intermediate recurrence risk (stage T2b-c or Cary 7 or PSA 10-20): Coding Level of Care Code Radiation Tx Management x5 Diagnoses Cancer of prostate with intermediate recurrence risk (stage T2b-c or Cary 7 or PSA 10-20) C61 05/29/24 0849 Date Jus Spann Signature: Date (if applicable) CC: Normal [facility] Radiation Oncology Visiton 0 05-21-2024 Radiation Oncology Visit [facility] [address] [place] [address] OFFICE VISIT Date of Service: 05/21/24817 MR#: [id number] Acct: [id number] Name: GABRIELLEMOIRABASIMRachana MILLERROGELIO Rep #: [id number] : 1975 From: Alex Lopez DO Age/Sex: 49/M [place] [facility] [place] Status: Signed Intake Vital Signs 03/22/24 10:28 05/16/24 08:18 05/21/24 08:22 Height 6 ft 6 ft 6 ft Weight: 206 lb 2 oz 206 lb 1 oz BMI 27.9 27.9 BP 144/100 H 125/89 H Blood Pressure Location Rt brachial Rt brachial Position Sitting Sitting Respiration 18 18 Pulse 81 88 Pulse Source Monitor Monitor Temp 98.0 F 98.1 F Temperature Source Temporal Artery Temporal Artery Pulse Oximetry (%) 99 97 Oxygen Delivery Method room air room air Intake Visit Reasons: OTV Is patient in pain?: Yes (lower back) Pain scale (1-10): 2 Allergies No Known Allergies Allergy (Unverified 05/16/24 08:17) Medications ???Medication ???Instructions ???Recorded ???Confirmed ???Type relugolix 120 mg tablet (Orgovyx) 120 mg PO QDAY 05/21/24 05/21/24 History PFSH PFSH Medical History Anal fissure Home Medications ???Medication ???Instructions ???Recorded ???Last Taken ???Type relugolix 120 mg tablet (Orgovyx) 120 mg PO QDAY 05/21/24 Unknown H istory Allergy/AdvReac Type Severity Reaction Status Date / Time No Known Allergies Allergy Unverified 05/16/24 08:17 Family History Father Pancreatic cancer Grandfather Prostate cancer Surgical History History of toe surgery History of prostate biopsy History of appendectomy Social History household members: spouse and children current occupational status: employed Smoking Status: Former smoker quit date: 02/20/02 Tobacco: How many years used: 2 Smokeless tobacco user: chewing tobacco alcohol intake: current alcohol intake frequency: a few times a week substance use type: does not use Diagnosis: Basim Cummings is a 48-year-old male diagnosed with 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 Plan: Plan was made to complete definitive radiation therapy consisting of 7000 centigrade delivered to the prostate and seminal vesicles and 5040 centigrade delivered to the at risk pelvic lymph nodes all in 28 fractions. Treatment Data: Treatment Site: Prostate/SV and nodes Current total dose/Total dose planned: 1750 cGy / 7000 cGy Fraction number: Chemotherapy: None, planning ADT but doesn't have yet Subjective: Pain: 0 / 10 Fatigue: none Skin: no erythema, rash, desquamation GI: no diarrhea/constipation. No rectal pain or bleeding. No bloating or increased gas : no increase urinary symptoms. No dysuria or hematuria Severe right and lower back pain since Space OAR, much improved this week Objective: Weight: 206 lbs 1 oz Physical Exam: Gen: NAD Skin: no erythema, rash, desquamation. Assessment Plan Assessment/Plan (1) Cancer of prostate with intermediate recurrence risk (stage T2b-c or Cary 7 or PSA 10-20): PLAN: Plan Assessment: Tolerating treatment well overall.??? I reviewed and approved all treatment associated imaging. No treatment associated toxicities are noted at this time Severe back pain, suspected from space OAR due to timing, some spread to the right side consistent with pain, planning to have him see pain management, pain is much better this week Plan: Continue treatment as planned.??? I have reviewed potential treatment associated toxicities as well as timing for resolution and management. Follow up next week or sooner if needed. Thank you for allowing me to participate in the management and care of your patient. If I may answer any questions in the interim, please do not hesitate to contact me at any time. Alex Lopez DO, MS Estimator, Department of Radiation Oncology [facility] Coding Level of Care Code Radiation Tx Management x5 Diagnoses Cancer of prostate with intermediate recurrence risk (stage T2b-c or Yung 7 or PSA 10-20) C61 05/21/24 0832 Date [facility] Signature: Date (if applicable) CC: Normal [facility] Radiation Oncology Visiton 0 05-16-2024 Radiation Oncology Visit [facility] [place] [address] [place] [address] OFFICE VISIT Date of Service: 05/16/24812 MR#: [id number] Acct: [id number] Name: BASIM ROMERO Rep #: [id number] : 1975 From: Alex Lopez DO Age/Sex: 49/M [place] [facility] [place]: Signed Intake Vital Signs 03/22/24 10:28 05/16/24 08:18 Height 6 ft 6 ft Weight: 206 lb 2 oz BMI 27.9 BP 144/100 H Blood Pressure Location Rt brachial Position Sitting Respiration 18 Pulse 81 Pulse Source Monitor Temp 98.0 F Temperature Source Temporal Artery Pulse Oximetry (%) 99 Oxygen Delivery Method room air Intake Visit Reasons: OTV Is patient in pain?: Yes (lower back, right hip) Pain scale (1-10): 6 Allergies No Known Allergies Allergy (Unverified 05/16/24 08:17) Medications ???Medication ???Instructions ???Recorded ???Confirmed ???Type NK 05/16/24 05/16/24 History PFSH PFSH Medical History Anal fissure Home Medications ???Medication ???Instructions ???Recorded ???Last Taken ???Type NK 05/16/24 Unknown History Allergy/AdvReac Type Severity Reaction Status Date / Time No Known Allergies Allergy Unverified 05/16/24 08:17 Family History Father Pancreatic cancer Grandfather Prostate cancer Surgical History History of toe surgery History of prostate biopsy History of appendectomy Social History household members: spouse and children current occupational status: employed Smoking Status: Former smoker quit date: 02/20/02 Tobacco: How many years used: 2 Smokeless tobacco user: chewing tobacco alcohol intake: current alcohol intake frequency: a few times a week substance use type: does not use Diagnosis: Basim Cummings is a 48-year-old male diagnosed with 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 Plan: Plan was made to complete definitive radiation therapy consisting of 7000 centigrade delivered to the prostate and seminal vesicles and 5040 centigrade delivered to the at risk pelvic lymph nodes all in 28 fractions. Treatment Data: Treatment Site: Prostate/SV and nodes Current total dose/Total dose planned: 750 cGy / 7000 cGy Fraction number: Chemotherapy: None, planning ADT but doesn't have yet Subjective: Pain: 0 / 10 Fatigue: none Skin: no erythema, rash, desquamation GI: no diarrhea/constipation. No rectal pain or bleeding. No bloating or increased gas : no increase urinary symptoms. No dysuria or hematuria Severe right and lower back pain since Space OAR Objective: Weight: 206 lbs 2 oz Physical Exam: Gen: NAD Skin: no erythema, rash, desquamation. Assessment Plan Assessment/Plan (1) Cancer of prostate with intermediate recurrence risk (stage T2b-c or Cary 7 or PSA 10-20): PLAN: Plan Assessment: Tolerating treatment well overall.??? I reviewed and approved all treatment associated imaging. No treatment associated toxicities are noted at this time Severe back pain, suspected from space OAR due to timing, some spread to the right side consistent with pain, planning to have him see pain management Plan: Continue treatment as planned.??? I have reviewed potential treatment associated toxicities as well as timing for resolution and management. Skin: Skin care reviewed, continue lotion prn Follow up next week or sooner if needed. Thank you for allowing me to participate in the management and care of your patient. If I may answer any questions in the interim, please do not hesitate to contact me at any time. Alex Lopez DO, MS Estimator, Department of Radiation Oncology [facility] Coding Level of Care Code Radiation Tx Management x5 Diagnoses Cancer of prostate with intermediate recurrence risk (stage T2b-c or Cary 7 or PSA 10-20) C61 05/16/24 0917 Date Alex Lopez DO Cosigner Signature: Date (if applicable) CC: Normal [facility] Magnetic resonance imaging r eportOrdered By: Jason Huang on 04-29-2024 Study report [facility] [address] [place] [address] Pelvis W/WO Contrast MR#: [id number] Acct: [id number] Name: BASIM ROMERO Rep #: [id number] : 1975 M 49 From: Narda Huang MD PCP: Dr. Deacon Harper MD Status: RE G CLI Study:Pelvis W/WO Contrast Date of Exam: 04/29/24 Exam# [id number] Ordering Dr: Alex Lopez DO PROCEDURE: PELVIS W/WO CONTRAST (MRIPELWW), 04/29/2024 REASON FOR EXAM: planning for XRT, eval extent of disease TECHNIQUE: Multisequence multiplanar MRI pelvis was performed with and without IV contrast. CONTRAST: 19 mL Clariscan COMPARISON: Outside exam 02/09/2024. Images only are available for review; the report is not available. Comparison is also made with PSMA PET/CT 04/02/2024. FINDINGS: Note dynamic postcontrast imaging was not performed; an alternative PI-RADS algorithm was therefore utilized. Exam additionally limited by T1 bright presumed post biopsy/procedural blood products scattered throughout the gland. Variable overall mild motion limitation. The effect of these limitations is exacerbated by the small size ofthe gland. Prostate size: 3.5 x 3.2 x 3.6 cm, estimated volume 21 mL. Interval placement ofspacing material which infiltrates through along periprostatic tissue planes on the right with a considerable portion being located in the lateral and anterolateral regions, only a small amount remains situated between the anterior rectum and posterior prostate, which remain directly apposed or near indirectly opposed to the left of midline. Fiducial markers suspected. Transition zone: PI-RADS 2 findings. 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 This is more conspicuous than on 02/09/2024 and was without definite abnormal uptake on comparison PET/CT. *T2 score: Borderline; felt best considered T2 score 3 *DWI score: 3 *DCE: N/A. *Overall PI-RADS: Borderline; felt the best considered PI-RADS 3. *Extracapsular extension:No gross extracapsular extension, however, there is capsular abutment greater than 1 cm which increases the risk of occult early/microscopic extracapsular extension. Note that this includes abutment of the bladder neck without definite invasion. Peripheral Zone: Fairly considerable multifocal background changes of likely prostatitis and/or presumed blood products with areas of mild restricted diffusion, technically meeting criteria for PI-RADS 3 and making delineation of additional discrete lesions challenging (for example,: *Lesion 2: More discrete diffusion signal in the right posterior peripheral zonecentered at the level of the midgland to apex, roughly 1.4 cm (series 8, image 18-20). This appears to correlate with the focus of uptake on comparison PET/CT. *T2 score: 4 *DWI score: 3 *DCE: N/A. *Overall PI-RADS: PI-RADS 3 *Extracapsular extension:No gross extracapsular extension, however, there is capsular abutment greater than 1 cm which increases the risk of occult early/microscopic extracapsular extension. Note that this includes the region of the right neurovascular bundle, which appears grossly unremarkable. Neurovascular bundles: As above. Seminal vesicles: Unremarkable. Bladder: Unremarkable. Lymph nodes: Unremarkable. Bones: Heterogeneous marrow signal without destructive or frankly suspicious bony lesions identified. Other: Tiny fat containing left inguinal hernia. Suspected at least a trace right hydrocele.. MRI/Pelvis W/WO Contrast IMPRESSION: 1. Exam limited by presumed postprocedural blood products, small size of the gland, and ill-defined signal abnormalities throughout the peripheral zone making delineation of discrete lesions challenging. 2. Interval placement of spacing material, much of which infiltrates along periprostatic tissue planes on the right with a considerable portion being located in the lateral and anterolateral regions. A small amount remains situated between the anterior rectum and posterior prostate. 3. Ill-defined 1.4 cm PI-RADS 3 lesion in the right posterior peripheral zone centered at the level of the midgland to apex (lesion 2). This appears to correlate with the focus of uptake on comparison PET/CT. 4. 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 This is more conspicuous than on the outside exam of 02/09/2024 and demonstrated no definite abnormal uptake on comparison PET/CT. 5. Background multifocal signal abnormalities throughout the remainder of the peripheral zones which may reflect sequela of prostatitis and/or presumed postprocedural blood products, however technically also borderline meeting criteria for PI-RADS 3, although less convincing than the above lesions 1-2 and very difficult to discretely measure. 6. No gross extracapsular (more content not included)... [facility] Pelvis W/WO Contraston 04-29 Pelvis W/WO Contrast [facility] [address] [place] [address] [id number] Pelvis W/WO Contrast MR#: [id number] Acct: [id number] Name: BASIM ROMERO Rep #: [id number] : 1975 M 49 From: Jason Huang MD PCP: Dr. Deacon Harper MD Status: [facility] Study: Pelvis W/WO Contrast Date of Exam: 04/29/24 Exam# [id number] Ordering Dr: Alex Lopez DO PROCEDURE: PELVIS W/WO CONTRAST (MRIPELWW), 04/29/2024 REASON FOR EXAM: planning for XRT, eval extent of disease TECHNIQUE: Multisequence multiplanar MRI pelvis was performed with and without IV contrast. CONTRAST: 19 mL Clariscan COMPARISON: Outside exam 02/09/2024. Images only are available for review; the report is not available. Comparison is also made with PSMA PET/CT 04/02/2024. FINDINGS: Note dynamic postcontrast imaging was not performed; an alternative PI-RADS algorithm was therefore utilized. Exam additionally limited by T1 bright presumed post biopsy/procedural blood products scattered throughout the gland. Variable overall mild motion limitation. The effect of these limitations is exacerbated by the small size of the gland. Prostate size: 3.5 x 3.2 x 3.6 cm, estimated volume 21 mL. Interval placement of spacing material which infiltrates through along periprostatic tissue planes on the right with a considerable portion being located in the lateral and anterolateral regions, only a small amount remains situated between the anterior rectum and posterior prostate, which remain directly apposed or near indirectly opposed to the left of midline. Fiducial markers suspected. Transition zone: PI-RADS 2 findings. 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 This is more conspicuous than on 02/09/2024 and was without definite abnormal uptake on comparison PET/CT. *T2 score: Borderline; felt best considered T2 score 3 *DWI score: 3 *DCE: N/A. *Overall PI-RADS: Borderline; felt the best considered PI-RADS 3. *Extracapsular extension:No gross extracapsular extension, however, there is capsular abutment greater than 1 cm which increases the risk of occult early/microscopic extracapsular extension. Note that this includes abutment of the bladder neck without definite invasion. Peripheral Zone: Fairly considerable multifocal background changes of likely prostatitis and/or presumed blood products with areas of mild restricted diffusion, technically meeting criteria for PI-RADS 3 and making delineation of additional discrete lesions challenging (for example,: *Lesion 2: More discrete diffusion signal in the right posterior peripheral zone centered at the level of the midgland to apex, roughly 1.4 cm (series 8, image 18-20). This appears to correlate with the focus of uptake on comparison PET/CT. *T2 score: 4 *DWI score: 3 *DCE: N/A. *Overall PI-RADS: PI-RADS 3 *Extracapsular extension:No gross extracapsular extension, however, there is capsular abutment greater than 1 cm which increases the risk of occult early/microscopic extracapsular extension. Note that this includes the region of the right neurovascular bundle, which appears grossly unremarkable. Neurovascular bundles: As above. Seminal vesicles: Unremarkable. Bladder: Unremarkable. Lymph nodes: Unremarkable. Bones: Heterogeneous marrow signal without destructive or frankly suspicious bony lesions identified. Other: Tiny fat containing left inguinal hernia. Suspected at least a trace right hydrocele.. MRI/Pelvis W/WO Contrast IMPRESSION: 1. Exam limited by presumed postprocedural blood products, small size of the gland, and ill-defined signal abnormalities throughout the peripheral zone making delineation of discrete lesions challenging. 2. Interval placement of spacing material, much of which infiltrates along periprostatic tissue planes on the right with a considerable portion being located in the lateral and anterolateral regions. A small amount remains situated between the anterior rectum and posterior prostate. 3. Ill-defined 1.4 cm PI-RADS 3 lesion in the right posterior peripheral zone centered at the level of the midgland to apex (lesion 2). This appears to correlate with the focus of uptake on comparison PET/CT. 4. 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 This is more conspicuous than on the outside exam of 02/09/2024 and demonstrated no definite abnormal uptake on comparison PET/CT. 5. Background multifocal signal abnormalities throughout the remainder of the peripheral zones which may reflect sequela of prostatitis and/or presumed postprocedural b (more content not included)... Normal [facility] PET/CT Tumor Base -Thigh Ini ton 04-02-2024 PET/CT Tumor Base -Thigh Init [facility] [address] [place], [place] [address] PET/CT Tumor Base -Thigh Init MR#: [id number] Acct: [id number] Name: BASIM ROMERO Rep #: [id number] : 1975 M 48 From: Bushra White MD PCP: Dr. Deacon Harper MD Status: [facility] Study: PET/CT Tumor Base -Thigh Init Date of Exam: Exam# [id number] Ordering Dr: Alex Lopez DO EXAM: PSMA PET-CT. CLINICAL HISTORY: 48-year-old male with a history of prostate cancer in the right peripheral zone. For initial staging. COMPARISON: None available. TECHNIQUE: A total of 9 mCi Pylarify was administered intravenously. PET images were obtained from the vertex through the mid thighs. Through this same anatomic region, CT images were obtained for attenuation correction purposes and anatomic localization. Dose reduction techniques include automated exposure control and/or adjustment of mA and/or kv according to patient size and or use of iterative reconstructive technique. FINDINGS: Neck: No abnormal activity in the neck. Physiologic activity is noted in the salivary glands, including a focal area in the region of Stensen's duct on the right side. Imaged intracranial contents are grossly normal. Globes and orbits are normal. Salivary and thyroid glands are normal. Trachea is midline. Chest: No abnormal activity in the chest. Low-dose non breath hold images through the lungs show no nodule. The central airways are patent. No pleural effusion or pneumothorax. Normal heart size and pulmonary vascularity. Incidentally noted aberrant right subclavian artery. Abdomen and pelvis: Increased uptake in the peripheral zone of the right aspect of the prostate gland, compatible with the patient's history of prostate carcinoma. Maximum SUV is 10.9. The lymph nodes in the pelvis are normal in size and show no suspicious activity on the PET images. No additional abnormal activity in the abdomen or pelvis. Liver, spleen, pancreas, gallbladder are grossly normal. Kidneys, ureters, urinary bladder are normal. Bowel is normal in caliber. No suspicious osseous abnormality is identified. PET/PET/CT Tumor Base -Thigh Init IMPRESSION: PRIMARY MALIGNANCY IN THE PERIPHERAL ZONE OF THE RIGHT ASPECT OF THE PROSTATE GLAND. NEGATIVE FOR METASTASES. Reading Location: [id number] CC: Dr. Deacon Harper MD; Dr. Alex Lopez DO Teaching Aide: Signed Normal [facility] Radiation Oncology Visiton 0 03-22-2024 Radiation Oncology Visit [facility] [address] [place] [address]. [place] [address] OFFICE VISIT Date of Service: 03/22/24 1023 MR#: [id number] Acct: [id number] Name: BASIM ROMERO Rep #: [id number] : 1975 From: Alex Lopez DO Age/Sex: 48/M Location[place] [facility] Status: Signed Intake Vital Signs 03/22/24 10:28 Height 6 ft Weight: 203 lb 3 oz BMI 27.5 BP 122/88 H Blood Pressure Location Rt brachial Position Sitting Respiration 16 Pulse 96 Pulse Source Monitor Temp 96.8 F L Temperature Source Temporal Artery Pulse Oximetry (%) 99 Oxygen Delivery Method room air Intake Visit Reasons: PROSTATE CA Is patient in pain?: No Allergies No Known Allergies Allergy (Unverified 03/22/24 10:25) PFSH PFSH Medical History (Updated 03/22/24 @ 11:[address] Alex Lopez, DO) Anal fissure Allergy/AdvReac Type Severity Reaction Status Date / Time No Known Allergies Allergy Unverified 03/22/24 10:25 Family History (Updated 03/22/24 @ 10:27 by Carmel Mak) Father Pancreatic cancer Grandfather Prostate cancer Surgical History (Updated 03/22/24 @ 10:26 by Carmel Mak) History of toe surgery History of prostate biopsy History of appendectomy Social History (Updated 03/22/24 @ 10:28 by Carmel Mak) household members: spouse and children current occupational status: employed Smoking Status: Former smoker quit date: 02/20/02 Tobacco: How many years used: 2 Smokeless tobacco user: chewing tobacco alcohol intake: current alcohol intake frequency: a few times a week substance use type: does not use Referring Provider: Irena Edouard MD Diagnosis: Basim Cummings is a 48-year-old male diagnosed with 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 History of Present Illness: 02/09/2024: Patient completed MRI prostate.??? This demonstrated a lesion in the right peripheral zone mid gland demonstrating equivocal diffusion restriction and early arterial enhancement consistent with a PI-RADS 4 lesion.??? This lesion is seen along the capsule without obvious extracapsular extension.??? No seminal vesicle invasion is noted.??? No abnormally enlarged lymph nodes are noted. 03/05/2024: Patient completed prostate biopsy.??? Pathology demonstrated Yung 4+3 adenocarcinoma involving 3/6 cores within the right prostate, 2/7 cores within the left prostate, and 5/7 cores in the area of interest biopsy #1 Radiation Treatment History: No prior radiation therapy. No pacemaker. No radiosensitizing comorbidity. Interval History: Patient presents for initial consultation. He reports initially coming to see a urologist due to having pain with intercourse/ejaculation for a couple months. He was treated with antibiotics and this mostly resolved but also was found to have an elevated PSA which led to his prostate cancer diagnosis. He does report mild urinary symptoms including intermittency and urgency about half the time, weak stream less than half the time, incomplete emptying, frequency, straining all less than 1 time in 5. He has nocturia once per night. He denies dysuria or hematuria. He denies leakage or incontinence of urine. He is sexually active without any difficulty and the pain has mostly resolved that he previously had. He does report regular bowel function without diarrhea or constipation. He does have occasional loose stool and has about 2 bowel movements per day on average. He also reports having no evidence of rectal pain or bleeding. Energy level has been a little bit low over the last 6 months but mostly stable. Appetite and weight have remained stable. He denies cough, shortness of breath, chest pain. He does have a history of low back pain worse over the last 1 to 2 years. No weakness or numbness. He does work full-time and stays active in his daily life. He completes all ADLs without any difficulty denies having other problems or concerns at this time. IPSS: 12 TANIA: 18 Review of Systems: A 12-point review of systems was completed and was negative except for what is noted in the HPI/Interval History and by the nurse. Physical Exam: Weight: 203 lbs 3 oz ECO KARNOFSKY SCORE: 90% CONSTITUTIONAL: Well-developed, well-nourished, and in no apparent distress. CARDIAC: Regular rate and rhythm. Normal S1, S2. No murmurs, rubs, or gallops. PULMONARY/CHEST: Lungs are clear to auscultation and percussion bilaterally. No wheezes, rhonchi, or crackles noted. No increased work of breathing. EVITA: Deferred PSYCHIATRIC: Appropriate mood and affect for the clinical situation. Imaging: As per HPI Laboratory Data: PSA 01/15/2024: 12.13 Assessment Plan Assessment/Plan (1) Cancer of p (more content not included)... Normal [facility] DECIPHERon 03-05-2024 DECIPHER SCAN RESULT See Scanned Result AP SUMMARY REPORT SEE COMMENT A complete Decipher result issued by EDU Smith is on file in the Department of Anatomic Pathology at [facility]. GENOMIC RISK IS: INTERMEDIATE DECIPHER SCORE: 0.52 Normal [facility] Comment on above: Order Comment: Pre-o p diagnosis: Elevated PSA [R97.20] Surgical pathology studyon 0 03-05-2024 Surgical pathology study Pathology report.total SEE COMMENT Surgical Pathology Case: [id number] Authorizing Provider: Irena Edouard MD Collected: 03/05/2024 1104 Ordering Location: [facility] Received: 03/05/2024 1635 Center OR Pathologist: Dwain Olea MD Specimens: A) - PROSTATE NEEDLE BIOPSY RIGHT B) - PROSTATE NEEDLE BIOPSY LEFT C) - PROSTATE BIOPSY TARGETED SOREN, AREA OF INTEREST#1 Path report.final diagnosis SEE COMMENT A. PROSTATE, RIGHT, BIOPSY: -- Prostatic adenocarcinoma, Cary score 4+3=7, Grade Group 3, involving 3 of 6 cores discontinuously and approximately 50% of the overall specimen. B. PROSTATE, LEFT, BIOPSY: -- Prostatic adenocarcinoma, Yung score 4+3=7, Grade Group 3, involving 2 of 7 cores and approximately 20% of the overall specimen. C. PROSTATE, AREA OF INTEREST #1, BIOPSY: -- Prostatic adenocarcinoma, Cary score 4+3=7, Grade Group 3, involving 5 of 7 fragments and cores and approximately 50% of the overall specimen. Laboratory comment By the signature on this report, the individual or group listed as making the Final Interpretation/Diagnosi s certifies that they have reviewed this case. RESIDENT REVIEW The microscopic findings were reviewed in conjunction with pathology resident, Tobias Silva MD. LAB AP BLOCK FOR ADDITIONAL STUDIES Tumor block: C2 Path report.relevant Hx SEE COMMENT Pre-op diagnosis: Elevated PSA [R97.20] Path report.gross observation SEE COMMENT A: Received in formalin, labeled with the patient's name and hospital number and right, are multiple cylindrical fragments of skelton soft tissue measuring 1.7 cm, 1.5 cm, 1.3 cm, 1.2 cm, 1.2 cm, and 1.0 cm in length by less than 0.1 cm in diameter. The specimen is submitted in toto in two cassettes. AMARIS Received in formalin, labeled with the patient's name and hospital number and left, are multiple cylindrical fragments of skelton soft tissue measuring 1.7 cm, 1.6 cm, 1.6 cm, 1.5 cm, 1.5 cm, 1.5 cm, and 1.4 cm in length by less than 0.1 cm in diameter. The specimen is submitted in toto in two cassettes. AMARIS C: Received in formalin, labeled with the patient's name and hospital number and area of interest #1, are multiple cylindrical fragments of skelton soft tissue measuring 1.6 cm, 1.5 cm, 1.4 cm, 1.4 cm, 1.3 cm, 1.1 cm, and 1.0 cm in length by less than 0.1 cm in diameter. The specimen is submitted in toto in one cassette. [facility] Comment on above: Order Comment: Pre-o p diagnosis: Elevated PSA [R97.20] MR PROSTATE WITH SOREN BOUNDAR IES IF PIRADS 3 OR ABOVEon 02-09-2024 MR PROSTATE WITH SOREN BOUNDARIES IF PIRADS 3 OR ABOVE Interpreted By: Rory Motta, Monique Cummins STUDY: MR PROSTATE WITH SOREN BOUNDARIES IF PIRADS 3 OR ABOVE; 02/09/2024 5:19 pm INDICATION: Signs/Symptoms:levated PSA. PSA: 12 ,R97.20 Elevated prostate specific antigen (PSA) COMPARISON: None. ACCESSION NUMBER(S): [id number] ORDERING CLINICIAN: IRENA EDOUARD TECHNIQUE: Multiplanar MRI of the pelvis was obtained including axial, sagittal and coronal T2 weighted SSFSE, axial and sagittal T2 FSE, axial DWI, pre and post gadolinium dynamic T1 GRE sequences. Multiparametric analysis was performed. 20 ML of Dotarem was administered intravenously without immediate complications. 3D post-processing was performed using [employer], on an independent workstation, for the purpose of enabling fusion with ultrasound, and provided it for review. FINDINGS: PROSTATE VOLUME: The prostate measures 3.0 cm x 3.8 cm x 3.3 cm in mdvjn-mk-uhaz, anterior-posterior and craniocaudal dimension. Prostate weight is estimated at 20g. PSA density is 0.61 ng/mL/g. PROSTATE PARENCHYMA: There is heterogeneous enlargement of the transition zone, consistent with benign prostatic hyperplasia. There is a 0.9 cm T2 hypointense lesion of the right peripheral zone midgland which demonstrates equivocal diffusion restriction and early arterial enhancement consistent with a PI-RADS 4 lesion. The lesion is seen along the capsule without obvious extracapsular extension. EXTRACAPSULAR EXTENSION: Lesion in the right mid peripheral zone is present along the capsule without definite extracapsular extension. SEMINAL VESICLES: Within normal limits. PELVIC LYMPH NODES: No abnormally enlarged pelvic lymph nodes are identified. PERITONEUM: No free or loculated fluid collections are evident in the pelvis. OTHER ORGANS: There is mild circumferential thickening of the bladder, with prominent trabeculation, likely sequela of chronic outlet obstruction. BONES: No focal lesions are noted in the bone. Exam Quality: Is T2WI weighted imaging of diagnostic quality: Yes. T2WI assessment: Adequate. Is DWI of diagnostic quality: Yes. DWI assessment: Adequate. Is DCE of diagnostic quality: Yes. DCE assessment: Adequate. PI-QUAL score: Two or more sequences independently are of diagnostic quality Comments: IMPRESSION: 1. A PI-RADS 4 lesion in the right midglandperipheral zone along the capsule. No definite signs of gross extracapsular extension. No evidence of enlarged pelvic lymph nodes. PI-RADS 4 - High (clinically significant cancer is likely to be present). I personally reviewed the images/study and I agree with the findings as stated. This study was interpreted at [place], [place]. MACRO: None Signed by: Rory Motta 02/12/2024 5:57 PM Dictation workstation: [id number] Normal [facility] Testosteroneon 02-09-2024 Testosterone [Mass/Vol] 390 ng/dL Normal 240-1000 [facility] Comment on above: Order Comment: Nandr olone decanoate, 11 Beta- hydroxytestosterone, androstenedione, testosterone propionate and 84-frcm-algiiitjqich strongly cross react with this test method. Biotin interference may cause falsely elevated results. Patients taking a Biotin dose of up to 5 mg/day should refrain from taking Biotin for 24 hours before sample collection. Providers may contact their local laboratory for further information. Performed By: #### 2 986-8 #### MELANI Lee ([id number]) [facility] ([facility]) [address] [place] [address] Prostate specific Agon 01-14 Prostate specific Ag [Mass/Vol] 12.13 ng/mL High <=4.00 [facility] Comment on above: Order Comment: The F DA requires that the method used for PSA assay be reported to the physician. Values obtained with different assay methods must not be used interchangeably. This test was performed at [facility] using the BuzzTable PSA assay is a two-site immunoenzymatic sandwich assay. The assay is approved for measurement of prostate-specific antigen (PSA)in serum and may be used in conjunction with a digital rectal examination in men 50 years and older as an aid in detection of prostate cancer. 3-Whaun-ygkqknnul inhibitors (e.g. Proscar, Finasteride, Avodart, Dutasteride and Joslyn) for the treatment of BPH have been shown to lower PSA levels by an average of 50% after 6 months of treatment. Performed By: #### 2 857-1 #### FRANCO MG ([id number]) [facility] ([facility]) [address] [place] [address] POCT UA Automated manually r esultedOrdered By: Ynes Curran on 11-14-2023 Appearance (U) Clear Clear [facility] Glucose Test strip (U) [Mass/Vol] Negative NEGATIVE mg/dl [facility] Hemoglobin Ql (U) Negative NEGATIVE [facility] Leukocyte esterase Test strip Ql (U) Negative NEGATIVE [facility] Nitrite Ql (U) Negative NEGATIVE [facility] pH (U) 6.5 [pH] No Reference Range Established [facility] POC Bilirubin, Urine Negative NEGATIVE [facility] POC Color, Urine Yellow Straw, [place] ow, Light-Yellow [facility] POC Ketones, Urine Negative NEGATIVE mg/dl [facility] Protein, Urine Negative NEGATIVE, 30 (1+) mg/dl [facility] POC Specific [place], Urine 1.025 1.005 - 1.035 [facility] POC Urobilinogen, Urine 0.2 0.2, 1.0 EU/DL [facility] CBC panel Auto (Bld)on 07-05 Erythrocyte distribution width (RBC) [Ratio] 11.9 % Normal 11.5-14.5 [facility] Comment on above: Performed By: #### 5 8410-2 #### MELANI Lee ([id number]) [facility] ([facility]) [address] [place] [address] Hematocrit (Bld) [Volume fraction] 47.2 % Normal 41.0-52.0 [facility] Comment on above: Performed By: #### 5 8410-2 #### MELANI Lee ([id number]) [facility] ([facility]) [id number] [address] Hemoglobin (Bld) [Mass/Vol] 15.6 g/dL Normal 13.5-17.5 [facility] Comment on above: Performed By: #### 5 8410-2 #### MELANI Lee ([id number]) [facility] ([facility]) [address] [place] [address] 68152 MCH (RBC) [Entitic mass] 31.2 pg Normal 26.0-34.0 [facility] Comment on above: Performed By: #### 5 8410-2 #### MELANI Lee ([id number]) [facility] ([facility]) [address] [place] [address] 86654 MCHC (RBC) [Mass/Vol] 33.1 g/dL Normal 32.0-36.0 [facility] Comment on above: Performed By: #### 5 8410-2 #### MELANI Lee ([id number]) [facility] ([facility]) [address] [place] [address] 52227 MCV (RBC) [Entitic vol] 94 fL Normal 80-100 [facility] Comment on above: Performed By: #### 5 8410-2 #### MELANI Lee ([id number]) [facility] ([facility]) [address] [place] [address] 31614 Nucleated RBC/100 WBC (Bld) [Ratio] 0.0 /100 WBCs Normal 0.0-0.0 [facility] Comment on above: Performed By: #### 5 8410-2 #### MELANI Lee ([id number]) [facility] ([facility]) [id number] [address] 10683 Platelets (Bld) [#/Vol] 232 x10*3/uL Normal 150-450 [facility] Comment on above: Performed By: #### 5 8410-2 #### MELANI Lee ([id number]) [facility] ([facility]) [id number] [address] 53361 RBC (Bld) [#/Vol] 5.00 x10*6/uL Normal 4.50-5.90 [facility] Comment on above: Performed By: #### 5 8410-2 #### MELANI Lee ([id number]) [facility] ([facility]) [address] [place] [address] 18147 WBC (Bld) [#/Vol] 5.1 x10*3/uL Normal 4.4-11.3 [facility] Comment on above: Performed By: #### 5 8410-2 #### MELANI Lee ([id number]) [facility] ([facility]) [address] [place] [address] 35406 Comprehensive metabolic 2000 panelon 07-06-2023 Albumin BCP dye [Mass/Vol] 4.5 g/dL Normal 3.4-5.0 [facility] Comment on above: Performed By: #### 2 4323-8 #### MELANI Lee ([id number]) [facility] ([facility]) [address] [place] [address] 54093 ALP [Catalytic activity/Vol] 50 U/L Normal 33-120 [facility] Comment on above: Performed By: #### 2 4323-8 #### MELANI Lee ([id number]) [facility] ([facility]) [id number] [address] 50019 ALT With P-5'-P [Catalytic activity/Vol] 36 U/L Normal 10-52 [facility] Comment on above: Result Comment: Suni ents treated with Sulfasalazine may generate falsely decreased results for ALT. Performed By: #### 2 4323-8 #### MELANI Lee ([id number]) [facility] ([facility]) [address] [place] [address] 50090 Anion gap [Moles/Vol] 15 mmol/L Normal 10-20 [facility] Comment on above: Performed By: #### 2 4323-8 #### MELANI Lee ([id number]) [facility] ([facility]) [address] [place] [address] 32215 AST With P-5'-P [Catalytic activity/Vol] 18 U/L Normal 9-39 [facility] Comment on above: Performed By: #### 2 4323-8 #### MELANI Lee ([id number]) [facility] ([facility]) [address] [place] [address] 91392 Bilirubin [Mass/Vol] 0.8 mg/dL Normal 0.0-1.2 [facility] Comment on above: Performed By: #### 2 4323-8 #### MELANI Lee ([id number]) [facility] ([facility]) [address] [place] [address] 00680 Calcium [Mass/Vol] 9.4 mg/dL Normal 8.6-10.6 [facility] Comment on above: Performed By: #### 2 4323-8 #### MELANI Lee ([id number]) [facility] ([facility]) [address] [place] [address] 08027 Chloride [Moles/Vol] 104 mmol/L Normal 98-107 [facility] Comment on above: Performed By: #### 2 4323-8 #### MELANI Lee ([id number]) [facility] ([facility]) [address] [place] [address] 57272 CO2 [Moles/Vol] 27 mmol/L Normal 21-32 [facility] Comment on above: Performed By: #### 2 4323-8 #### MELANI Lee ([id number]) [facility] ([facility]) [address] [place] [address] Creatinine [Mass/Vol] 1.19 mg/dL Normal 0.50-1.30 [facility] Comment on above: Performed By: #### 2 4323-8 #### MELANI Lee ([id number]) [facility] ([facility]) [id number] [address] 57756 Glomerular filtration rate/1.73 sq M.predicted 75 mL/min/1.73m*2 Normal >60 [facility] Comment on above: Result Comment: Calc ulations of estimated GFR are performed using the 2020 CKD-EPI Study Refit equation without the race variable for the IDMS-Traceable creatinine methods. https://jasn.asnjournals.org/content/early//ASN.33269019 88 Performed By: #### 2 4323-8 #### MELANI Lee ([id number]) [facility] ([facility]) [id number] [address] Glucose [Mass/Vol] 85 mg/dL Normal 74-99 [facility] Comment on above: Performed By: #### 2 4323-8 #### MELAIN Lee ([id number]) [facility] ([facility]) [id number] [place] [address]76 Potassium [Moles/Vol] 5.0 mmol/L Normal 3.5-5.3 [facility] Comment on above: Performed By: #### 2 4323-8 #### MELANI Lee ([id number]) [facility] ([facility]) [id number] [address] Protein [Mass/Vol] 7.2 g/dL Normal 6.4-8.2 [facility] Comment on above: Performed By: #### 2 4323-8 #### MELANI Lee ([id number]) [facility] ([facility]) [id number] [address] 09584 Sodium [Moles/Vol] 141 mmol/L Normal 136-145 [facility] Comment on above: Performed By: #### 2 4323-8 #### MELANI Lee ([id number]) [facility] ([facility]) [address] [place] [address] Urea nitrogen [Mass/Vol] 17 mg/dL Normal 6-23 [facility] Comment on above: Performed By: #### 2 4323-8 #### MELANI Lee ([id number]) [facility] ([facility]) [address] [place] [address] Lipid 1996 panelon 4 Cholesterol [Mass/Vol] 250 mg/dL High 0-199 [facility] Comment on above: Result Comment: Age Desirable Borderline High High 0-19 Y 0 - 169 170 - 199 >/= 200 20-24 Y 0 - 189 190 - 224 >/= 225 >24 Y 0 - 199 200 - 239 >/= 240 All ranges are based on fasting samples. Specific therapeutic targets will vary based on patient-specific cardiac risk. Pediatric guidelines reference:Pediatrics 2011, 128(S5).Adult guidelines reference: NCEP ATPIII Guidelines,TAMANNA 2001, 258:2486-97 Venipuncture immediately after or during the administration of Metamizole may lead to falsely low results. Testing should be performed immediately prior to Metamizole dosing. Performed By: #### 2 4331-1 #### MELANI Lee ([id number]) [facility] ([facility]) [address] [place] [address] Cholesterol in HDL [Mass/Vol] 52.3 mg/dL Normal [facility] Comment on above: Result Comment: Age Very Low Low Normal High 0-19 Y < 35 < 40 40-45 ---- 20-24 Y ---- < 40 >45 ---- >24 Y ---- < 40 40-60 >60 Performed By: #### 2 4331-1 #### MELANI Lee ([id number]) [facility] ([facility]) [address] [place] [address] Cholesterol in LDL [Mass/Vol] 164 mg/dL High <=99 [facility] Comment on above: Result Comment: Near Borderline AGE Desirable Optimal High High Very High 0-19 Y 0 - 109 --- 110-129 >/= 130 ---- 20-24 Y 0 - 119 --- 120-159 >/= 160 ---- >24 Y 0 - 99 100-129 130-159 160-189 >/=190 Performed By: #### 2 4331-1 #### MELANI Lee ([id number]) [facility] ([facility]) [id number] [address] Cholesterol in VLDL [Mass/Vol] 34 mg/dL Normal 0-40 [facility] Comment on above: Performed By: #### 2 4331-1 #### MELANI Lee ([id number]) [facility] ([facility]) [address] [place] [address] CHOLESTEROL/HDL RATIO 4.8 Normal [facility] Comment on above: Result Comment: Ref Values Desirable < 3.4 High Risk > 5.0 Performed By: #### 2 4331-1 #### MELANI Lee ([id number]) [facility] ([facility]) [id number] [address] 34097 NON HDL CHOLESTEROL 198 mg/dL High 0-149 [facility] Comment on above: Result Comment: Age Desirable Borderline High High Very High 0-19 Y 0 - 119 120 - 144 >/= 145 >/= 160 20-24 Y 0 - 149 150 - 189 >/= 190 ---- >24 Y 30 mg/dL above LDL Cholesterol goal Performed By: #### 2 4331-1 #### MELANI Lee ([id number]) [facility] ([facility]) [id number] [address]55 Triglyceride [Mass/Vol] 168 mg/dL High 0-149 [facility] Comment on above: Result Comment: Age Desirable Borderline High High Very High 0 D-90 D 19 - 174 ---- ---- ---- 91 D- 9 Y 0 - 74 75 - 99 >/= 100 ---- 10-19 Y 0 - 89 90 - 129 >/= 130 ---- 20-24 Y 0 - 114 115 - 149 >/= 150 ---- >24 Y 0 - 149 150 - 199 200- 499 >/= 500 Venipuncture immediately after or during the administration of Metamizole may lead to falsely low results. Testing should be performed immediately prior to Metamizole dosing. Performed By: #### 2 4331-1 #### MELANI Lee ([id number]) [facility] ([facility]) [address] [place] [address] CBCon 08-11-2022 Erythrocyte distribution width (RBC) [Ratio] 11.8 % Normal 11.5 - 14.5 [facility] Comment on above: Performed By: #### C BC #### [address] [address] Hematocrit (Bld) [Volume fraction] 47.2 % Normal 41.0 - 52.0 [facility] Comment on above: Performed By: #### C BC #### [address] [address] Hemoglobin (Bld) [Mass/Vol] 15.3 g/dL Normal 13.5 - 17.5 [facility] Comment on above: Performed By: #### C BC #### [address] [address] MCHC (RBC) [Mass/Vol] 32.4 g/dL Normal 32.0 - 36.0 [facility] Comment on above: Performed By: #### C BC #### [address] [address] MCV (RBC) [Entitic vol] 94 fL Normal 80 - 100 [facility] Comment on above: Performed By: #### C BC #### [address] [address] Platelets (Bld) [#/Vol] 227 10*3/uL Normal 150 - 450 [facility] Comment on above: Performed By: #### C BC #### [address] [address] RBC 5.01 x10E12/L Normal 4.50 - 5.90 [facility] Comment on above: Performed By: #### C BC #### [address] [address] WBC (Bld) [#/Vol] 5.0 10*3/uL Normal 4.4 - 11.3 [facility] Comment on above: Performed By: #### C BC #### [address] [address] CBC panel Auto (Bld)on 08-11 Erythrocyte distribution width (RBC) [Ratio] 11.8 % 11.5 - 14.5 % [facility] Hematocrit (Bld) [Volume fraction] 47.2 % 41.0 - 52.0 % [facility] Hemoglobin (Bld) [Mass/Vol] 15.3 g/dL 13.5 - 17.5 g/dL [facility] MCHC (RBC) [Mass/Vol] 32.4 g/dL 32.0 - 36.0 g/dL [facility] MCV (RBC) [Entitic vol] 94 fL 80 - 100 fL [facility] Platelets (Bld) [#/Vol] 227 10*3/uL [facility] RBC (Bld) [#/Vol] 5.01 10*6/uL [facility] WBC (Bld) [#/Vol] 5.0 10*3/uL [facility] COMPREHENSIVE PANELon 2022 Albumin [Mass/Vol] 4.6 g/dL Normal 3.4 - 5.0 [facility] Comment on above: Performed By: #### C MP #### [place] [id number] ALP [Catalytic activity/Vol] 48 U/L Normal 33 - 120 [facility] Comment on above: Performed By: #### C MP #### [address] [address] ALT [Catalytic activity/Vol] 32 U/L Normal 10 - 52 [facility] Comment on above: Result Comment: Suni ents treated with Sulfasalazine may generate falsely decreased results for ALT. Performed By: #### C MP #### [place] [id number] Anion gap [Moles/Vol] 10 mmol/L Normal 10 - 20 [facility] Comment on above: Performed By: #### C MP #### [address] [address] AST [Catalytic activity/Vol] 18 U/L Normal 9 - 39 [facility] Comment on above: Performed By: #### C MP #### [address] [address] Bilirubin [Mass/Vol] 0.7 mg/dL Normal 0.0 - 1.2 [facility] Comment on above: Performed By: #### C MP #### [address] [address] Calcium [Mass/Vol] 9.4 mg/dL Normal 8.6 - 10.3 [facility] Comment on above: Performed By: #### C MP #### [address] [address] Chloride [Moles/Vol] 105 mmol/L Normal 98 - 107 [facility] Comment on above: Performed By: #### C MP #### [address] [address] Creatinine [Mass/Vol] 1.13 mg/dL Normal 0.50 - 1.30 [facility] Comment on above: Performed By: #### C MP #### [address] [address] GFR/1.73 sq M.predicted among non-blacks MDRD (S/P/Bld) [Vol rate/Area] 80 mL/min/{1.73_m2} Normal >90 [facility] Comment on above: Result Comment: CALC ULATIONS OF ESTIMATED GFR ARE PERFORMED USING THE 2020 CKD-EPI STUDY REFIT EQUATION WITHOUT THE RACE VARIABLE FOR THE IDMS-TRACEABLE CREATININE METHODS. https://jasn.asnjournals.org/content/early/ASN.27309896 88 Performed By: #### C MP #### [address] [address] Glucose [Mass/Vol] 82 mg/dL Normal 74 - 99 [facility] Comment on above: Performed By: #### C MP #### [address] [address] HCO3 (Bld) [Moles/Vol] 29 mmol/L Normal 21 - 32 [facility] Comment on above: Performed By: #### C MP #### [address] [address] Potassium [Moles/Vol] 4.6 mmol/L Normal 3.5 - 5.3 [facility] Comment on above: Performed By: #### C MP #### [place] [address] Protein [Mass/Vol] 6.8 g/dL Normal 6.4 - 8.2 [facility] Comment on above: Performed By: #### C MP #### [place] [address] Sodium [Moles/Vol] 139 mmol/L Normal 136 - 145 [facility] Comment on above: Performed By: #### C MP #### [place] [address] Urea nitrogen [Mass/Vol] 13 mg/dL Normal 6 - 23 [facility] Comment on above: Performed By: #### C MP #### [place] [address] Lab Specimen Source Normal [facility] Comment on above: Performed By: #### C MP #### [place] [address] Performed By: #### C BC #### [place] [address] Performed By: #### L IPID #### [address] [address] Comprehensive metabolic 2000 panelon 08-11-2022 Albumin BCP dye [Mass/Vol] 4.6 g/dL 3.4 - 5.0 g/dL [facility] ALP [Catalytic activity/Vol] 48 U/L 33 - 120 U/L [facility] ALT With P-5'-P [Catalytic activity/Vol] 32 U/L 10 - 52 U/L [facility] Comment on above: Patients treated wit h Sulfasalazine may generate falsely decreased results for ALT. Anion gap [Moles/Vol] 10 mmol/L 10 - 20 mmol/L [facility] AST With P-5'-P [Catalytic activity/Vol] 18 U/L 9 - 39 U/L [facility] Bilirubin [Mass/Vol] 0.7 mg/dL 0.0 - 1.2 mg/dL [facility] Calcium [Mass/Vol] 9.4 mg/dL 8.6 - 10. 3 mg/dL [facility] Chloride [Moles/Vol] 105 mmol/L 98 - 107 mmol/L [facility] CO2 [Moles/Vol] 29 mmol/L 21 - 32 mmol/L [facility] Creatine [Mass/Vol] 1.13 mg/dL 0.50 - 1 .30 mg/dL [facility] GFR MALE 80 - PINF [facility] Comment on above: CALCULATIONS OF MARLEY MATED GFR ARE PERFORMED USING THE 2020 CKD-EPI STUDY REFIT EQUATION WITHOUT THE RACE VARIABLE FOR THE IDMS-TRACEABLE CREATININE METHODS. https://jasn.asnjournals.org/content//ASN.59415824 88 Glucose [Mass/Vol] 82 mg/dL 74 - 99 mg/dL [facility] Potassium [Moles/Vol] 4.6 mmol/L 3.5 - 5.3 mmol/L [facility] Protein [Mass/Vol] 6.8 g/dL 6.4 - 8.2 g/dL [facility] Sodium [Moles/Vol] 139 mmol/L 136 - 145 mmol/L [facility] Urea nitrogen [Mass/Vol] 13 mg/dL 6 - 23 mg/dL [facility] HEMOGLOBIN A1Con 08-11-2022 Glucose [Mass/Vol] 105 mg/dL Normal [facility] Comment on above: Performed By: #### H BA1E #### [facility] [address] [place] [address] HbA1c (Bld) [Mass fraction] 5.3 % [facility] Comment on above: Result Comment: Diag nosis of Diabetes-Adults Non-Diabetic: < or = 5.6% Increased risk for developing diabetes: 5.7-6.4% Diagnostic of diabetes: > or = 6.5% . Monitoring of Diabetes Age (y) Therapeutic Goal (%) Adults: >18 <7.0 Pediatrics: 13-18 <7.5 7-12 <8.0 0- 6 7.5-8.5 [employer] [employer]. Diabetes Care 33(S1), Feb 2009. Performed By: #### H BA1E #### [address] [address] HbA1c (Bld) [Mass fraction]o n 08-11-2022 Estimated Average Glucose 105 MG/DL [facility] Hemoglobin A1Con 08-11-2022 HbA1c (Bld) [Mass fraction] 5.3 % [facility] Comment on above: Diagnosis of Diabete s-Adults Non-Diabetic: < or = 5.6% Increased risk for developing diabetes: 5.7-6.4% Diagnostic of diabetes: > or = 6.5% . Monitoring of Diabetes Age (y) Therapeutic Goal (%) Adults: >18 <7.0 Pediatrics: 13-18 <7.5 7-12 <8.0 0- 6 7.5-8.5 [employer] [employer]. Diabetes Care 33(S1), Feb 2009. LIPID PANEL (CORONARY RISK 2 )on 08-11-2022 Cholesterol [Mass/Vol] 230 mg/dL High 0 - 199 [facility] Comment on above: Result Comment: . AGE DESIRABLE BORDERLINE HIGH HIGH 0-19 Y 0 - 169 170 - 199 >/= 200 20-24 Y 0 - 189 190 - 224 >/= 225 >24 Y 0 - 199 200 - 239 >/= 240 All ranges are based on fasting samples. Specific therapeutic targets will vary based on patient-specific cardiac risk. . Pediatric guidelines reference:Pediatrics 2011, 128(S5). Adult guidelines reference: NCEP ATPIII Guidelines, TAMANNA 2001, 258:2486-97 . Venipuncture immediately after or during the administration of Metamizole may lead to falsely low results. Testing should be performed immediately prior to Metamizole dosing. Performed By: #### L IPID #### [address] [address] Cholesterol in HDL [Mass/Vol] 58.0 mg/dL Normal [facility] Comment on above: Result Comment: . AGE VERY LOW LOW NORMAL HIGH 0-19 Y < 35 < 40 40-45 ---- 20-24 Y ---- < 40 >45 ---- >24 Y ---- < 40 40-60 >60 . Performed By: #### L IPID #### [address] [address] Cholesterol in LDL [Mass/Vol] 142 mg/dL High 0 - 99 [facility] Comment on above: Result Comment: . NEAR BORD AGE DESIRABLE OPTIMAL HIGH HIGH VERY HIGH 0-19 Y 0 - 109 --- 110-129 >/= 130 ---- 20-24 Y 0 - 119 --- 120-159 >/= 160 ---- >24 Y 0 - 99 100-129 130-159 160-189 >/=190 . Performed By: #### L IPID #### [address] [address] Cholesterol in VLDL [Mass/Vol] 30 mg/dL Normal 0 - 40 [facility] Comment on above: Performed By: #### L IPID #### [address] [address] Cholesterol.total/C holesterol in HDL [Mass ratio] 4.0 {ratio} Normal [facility] Comment on above: Result Comment: REF VALUES DESIRABLE < 3.4 HIGH RISK > 5.0 Performed By: #### L IPID #### [address] [address] Triglyceride [Mass/Vol] 148 mg/dL Normal 0 - 149 [facility] Comment on above: Result Comment: . AGE DESIRABLE BORDERLINE HIGH HIGH VERY HIGH 0 D-90 D 19 - 174 ---- ---- ---- 91 D- 9 Y 0 - 74 75 - 99 >/= 100 ---- 10-19 Y 0 - 89 90 - 129 >/= 130 ---- 20-24 Y 0 - 114 115 - 149 >/= 150 ---- >24 Y 0 - 149 150 - 199 200- 499 >/= 500 . Venipuncture immediately after or during the administration of Metamizole may lead to falsely low results. Testing should be performed immediately prior to Metamizole dosing. Performed By: #### L IPID #### [facility] [address] [place] [address] Lipid 1996 panelon 3 Cholesterol [Mass/Vol] 230 mg/dL High 0 - 199 mg/dL [facility] Comment on above: . AGE DESIRABLE BORDERLINE HIGH HIGH 0-19 Y 0 - 169 170 - 199 >/= 200 20-24 Y 0 - 189 190 - 224 >/= 225 >24 Y 0 - 199 200 - 239 >/= 240 All ranges are based on fasting samples. Specific therapeutic targets will vary based on patient-specific cardiac risk. . Pediatric guidelines reference:Pediatrics 2011, 128(S5). Adult guidelines reference: NCEP ATPIII Guidelines, TAMANNA 2001, 258:2486-97 . Venipuncture immediately after or during the administration of Metamizole may lead to falsely low results. Testing should be performed immediately prior to Metamizole dosing. Cholesterol in HDL [Mass/Vol] 58.0 mg/dL [facility] Comment on above: . AGE VERY LOW LOW NORMAL HIGH 0-19 Y < 35 < 40 40-45 ---- 20-24 Y ---- < 40 >45 ---- >24 Y ---- < 40 40-60 >60 . Cholesterol in LDL [Mass/Vol] 142 mg/dL High 0 - 99 mg/dL [facility] Comment on above: . NEAR BORD AGE DESIRABLE OPTIMAL HIGH HIGH VERY HIGH 0-19 Y 0 - 109 --- 110-129 >/= 130 ---- 20-24 Y 0 - 119 --- 120-159 >/= 160 ---- >24 Y 0 - 99 100-129 130-159 160-189 >/=190 . Cholesterol in VLDL [Mass/Vol] 30 mg/dL 0 - 40 mg/dL [facility] Cholesterol.total/C holesterol in HDL [Mass ratio] 4.0 {ratio} [facility] Comment on above: REF VALUES DESIRABLE < 3.4 HIGH RISK > 5.0 Interpretation and review of laboratory results Abnormal [facility] Triglyceride [Mass/Vol] 148 mg/dL 0 - 149 mg/dL [facility] Comment on above: . AGE DESIRABLE BORDERLINE HIGH HIGH VERY HIGH 0 D-90 D 19 - 174 ---- ---- ---- 91 D- 9 Y 0 - 74 75 - 99 >/= 100 ---- 10-19 Y 0 - 89 90 - 129 >/= 130 ---- 20-24 Y 0 - 114 115 - 149 >/= 150 ---- >24 Y 0 - 149 150 - 199 200- 499 >/= 500 . Venipuncture immediately after or during the administration of Metamizole may lead to falsely low results. Testing should be performed immediately prior to Metamizole dosing. No Panel Informationon 08-11 [facility] Provider Note - ED v3on 02-20 Provider Note - ED v3 Provider Note: Chart Review: ED NOTES ED NOTES: Presents for evaluation of URI. Symptoms including cough, congestion, body aches, malaise, and headache have been present for 1 month and refractory to OTC meds. No fever, chills, loss of taste/smell, nausea, vomiting, abdominal pain, CP, or SOB. No exacerbating factors. No known COVID 19/flu exposure. HISTORY OF PRESENTING ILLNESS BASIM is a 46 year old Male and was seen by me at 10-Mar-2022 16:47. Triage Information: Most recent Vital Sign Value Date PAST MEDICAL HISTORY ALLERGIES/INTOLERANCES: No Known Allergies HEALTH HISTORY: No documented data. OUTPATIENT MEDICATIONS: Home Medications Review Status for Reconciliation: Complete Med Status: Patient Currently Takes Medications Drug Name: amoxicillin-clavulanate 875 mg-125 mg oral tablet Instructions: 875 milligram(s) orally 2 times a day Drug Name: albuterol 90 mcg/inh inhalation aerosol Instructions: 2 puff(s) inhaled 2 times a day as needed for cough SIGNIFICANT EVENTS: No documented data. REVIEW OF SYSTEMS All other systems reviewed and are negative REVIEW OF SYSTEMS: Comments See HPI PHYSICAL EXAM CONSTITUTIONAL: Well appearing, well nourished, awake, alert, oriented to person, place, time/situation and in no apparent distress. HENMT: Airway patent, ears with clear tympanic membranes bilaterally. Nasal mucosa clear. Mouth with normal mucosa. Throat has no vesicles, no oropharyngeal exudates and uvula is midline. Face with no lymph node enlargement. EYES: Clear bilaterally, pupils equal, round and reactive to light. CARDIOVASCULAR: Normal rate, regular rhythm. Heart sounds S1, S2. No murmurs, rubs or gallops. PMI non-displaced. RESPIRATORY: Breath sounds clear and equal bilaterally. NEUROLOGICAL: Alert and oriented, no focal deficits, no motor or sensory deficits. SKIN: Skin normal color for race, warm, dry and intact. No evidence of trauma. PSYCHIATRIC: Alert and oriented to person, place, time/situation. normal mood and affect. No apparent risk to self or others. CRITICAL CARE VITAL SIGNS: T PRBP SpO2O2(LPM) %FiO2 Method 10-Mar-2022 16:48:[id number] MDM MDM/ED COURSE: Discussed Findings with: patient Data Reviewed: vital signs Treatment Plan: Rx Augmentin and albuterol inhaler. Patient's clinical presentation is otherwise unremarkable at this time. Patient is discharged with instructions to follow-up with primary care or seek emergency medical attention for worsening symptoms or any new concerns. DISPOSITION Diagnosis/Annotation: ED Dx Name:Acute bronchitis Code:J20.9 Disposition: discharged Type: home CONSULT CRITICAL CARE TIME Is this a critically ill patient: no Electronic Signatures: Arthur Bethea ([employer]ICE[employer]ERSON) (Signed 10-Mar-2022 17:03) Authored: ED Notes, HPI, PMH, ROS, PE, Results/Vital Signs, MDM/ED Course, Clinical Impression, Attestation, Chart Review, Scores Last Updated: 10-Mar-2022 17:03 by Arthur Bethea ([employer] APPRENTICE[employer]ESPERSON) [facility] CORONAVIRUS 2019 BY PCRon CORONAVIRUS 2019,PCR DETECTED Abnormal Not Detected [facility] Comment on above: Order Comment: POS C OV REPORTED TO AMEENA COLLIER, 02/28/2020 09:31 Result Comment: . This assay is designed to detect the N, ORF1ab and/or S genes of SARS-CoV-2 via nucleic acid amplification. A Negative (NOT DETECTED) result does not preclude 2019-nCoV infection since the adequacy of sample collection and/or low viral burden may result in presence of viral nucleic acids below the clinical sensitivity of this test method. Negative (NOT DETECTED) result should not be used as the sole basis for treatment or other patient management decisions. Rather negative results should be combined with clinical observations, patient history, and epidemiological information to make patient management decisions. Fact sheet for providers: https://www.fda.gov/media/658719/download Fact sheet for patients: https://www.fda.gov/media/689695/download This test has received FDA Emergency Use Authorization (EUA) and has been verified by [facility] ([facility]). This test is only authorized for the duration of time that circumstances exist to justify the authorization of the emergency use of in vitro diagnostic tests for the detection of SARS-CoV-2 virus and/or diagnosis of COVID-19 infection under section 564(b)(1) of the Act, 21 U.S.C. 360bbb-3(b)(1), unless the authorization is terminated or revoked sooner. [facility] is certified under CLIA-88 as qualified to perform high complexity testing. Testing is performed in the [facility] laboratories located at [address] [place] [address]. POS COV REPORTED TO AMEENA COLLIER, 02/28/2020 09:31 Performed By: #### C OV19 #### [address] [place] [address] Covid 19 Resultson 1 Covid 19 Results POSITIVE COVID-[address] Coronaviruses are common world-wide and are the cause of many common colds. SARS-COV2 is a new coronavirus that began circulating worldwide in 2019 so we are calling it COVID-19. It has been estimated that four out of five patients with COVID-19 will recover at home without the need for medical attention. Symptoms of COVID-19 include cough, fever, shortness of breath, loss of taste or smell and other flu-like symptoms including chills, sore muscles, sore throat, and headache. Severe illness is more common in older people and people with other health problems such as high blood pressure, obesity, and immune system problems. If the test is positive, you have COVID-19. You will be contacted by the ordering physicians office and instructed to remain on home isolation, in accordance with CDC guidelines. You may also be contacted by the [facility] to see if any of your close contacts may have been exposed to the virus and need to quarantine. If the test is negative, you likely do not have COVID-19 at this time, but you still may have a different illness that can spread to other people (like Influenza, or the Flu) and could still be at risk for getting COVID-19. We recommend that you stay away from other people to limit the spread of illness until your symptoms are improving and you are fever-free for 24 hours without the use of fever lowering medications such as acetaminophen or ibuprofen. No test is 100% accurate so if you are still concerned you may have COVID-19, talk to your doctor about the need to continue to stay away from others. Medicines Acetaminophen (Tylenol and others) is generally safe. Anti-inflammatory medications, such as Ibuprofen (Advil or Motrin) or Naproxen (Aleve) can also be used. Mebo-xpa-bzqbtkd cough and cold medicines can be used according to the instructions on the package. Some wscq-xhp-wistkxq medicines also contain acetaminophen. Make sure you are not taking more than your recommended dose For those not hospitalized, there is no specific treatment available for this illness. Antibiotics do not treat Coronaviruses. Follow-Up Follow up with your doctor by scheduling a virtual visit or consider follow-up at one of our urgent care fever clinics. If you are having difficulty breathing, or are very weak and having difficulty standing, this is a medical emergency. Call 911 or have someone take you to the nearest emergency room immediately. If possible, wear a facemask. Additional guidance from the CDC for patients who tested POSITIVE for COVID-19 How to isolate: Isolate yourself in a specific room at home and limit your contact with others. Use a separate bathroom from other members of the household, when possible. Leave home only to get essential medical care. Do not go to work, school or public areas. Avoid using public transportation, ride-sharing, or taxis. Restrict contact with pets and other animals. If you must care for your pet or be around animals while you are sick, wash your hands before and after your interaction and wear a facemask. Make sure that shared spaces in the home have good airflow, such as by an air conditioner or an opened window, weather permitting. Personal Hygiene Procedures: Wear a face mask when in the same room as other people or pets. If a face mask interferes with your breathing, others should wear a mask when sharing space with you. Frequent hand-washing: wash your hands with soap and water for at least 20 seconds. If soap and water are not available, use alcohol-based hand credentialing analyst. Avoid touching your eyes, nose, and mouth with unwashed hands. Household Hygiene Procedures: Avoid sharing personal household items such as dishes, glassware, cups, eating utensils, towels or bedding with other people or pets in your home. After use, these items should be washed with soap and hot water. Disinfect all high-touch surfaces every day with antibacterial cleaning solutions such as Lysol wipes, bleach, cleansers, etc. High-touch surfaces include tabletops, doorknobs, bathroom fixtures, toilets, phones, keyboards, tablets and bedside tables. Immediately clean any surfaces that may have blood, poop or body fluids on them, using antibacterial cleaning solutions such as Lysol wipes, bleach, cleansers, etc. If clothing or bedding come into contact with blood, poop or body fluids, they should be washed immediately. Follow the directions on the laundry detergent and clothing labels but hot water is recommended when possible. Stopping home isolation precautions: If possible, consult your doctor before stopping home isolation precautions. According to the CDC, you can discontinue home isolation precautions when you have met both of these criteria: Your fever and respiratory symptoms have been gone for 24 hours without the use of any medicines like ibuprofen (Motrin) and acetaminophen (Tylenol). It has been at least 10 days since your symptoms first appeared. If you are immunosuppressed OR you were admitted to the hospital for this, you should wait until it has been 14 days since your symptoms first appeared. Guidelines for Those Living With and/or Caring For Persons with COVID-19: Read and follow all the recommendations outlined in this handout. Do not permit visitors in the home unless there is an essential need. Wear a facemask when in the same room as the patient. Wear a facemask and gloves (disposable if available) when you touch or have contact with the patient's blood, poop, or body fluids including saliva, phlegm, nasal mucus, vomit or urine. Clean or throw away facemasks and gloves after use and wash your hands with soap and water. You will need to quarantine (stay away from others) for 14 days after your last contact with your family member with COVID-19. The person with COVID-19 is considered contagious 48 hours prior to symptoms beginning (or starting with the day of the positive test if they have no symptoms) for a total of 10 days. Additional resources: [facility] COVID Hotline at 2-431-0WKIVEX ( ). COVID-19 Careline at (availabl e 24 hours per day, seven days a week if you or a loved one is experiencing anxiety related to the coronavirus pandemic). Clinical research opportunities: is conducting research studies to develop better testing and treatments for COVID. Do you want any information on how to participate Call [phone]. Websites: hospitals.org or www.CDC.gov Follow My Health / My [facility] (for other test results): Revised 01/07/2020 Electronic Signatures: [email or web address] (ADMIN) (Signature pending) Authored Last Updated: 26-Feb-2020 22:55 by [email or web address] (ADMIN) Normal [facility] CORONAVIRUS 2019 BY PCRon DATE OF SYMPTOM ONSET [YYYYMMDD]? [id number] Normal [facility] Comment on above: Order Comment: POS C OV REPORTED TO AMEENA NANDO, 02/28/2020 09:31 Performed By: #### C OV19 #### [facility] [address] [place] [address] Lab Specimen Source Nasal, Nasopharyngeal Normal [facility] Comment on above: Order Comment: POS C OV REPORTED TO AMEENA NANDO, 02/28/2020 09:31 Performed By: #### C OV19 #### [facility] [address] [place] [address] Hematologyon 03-07-2019 Hematocrit (Bld) [Volume fraction] 46.0 % See Below [facility] Work Phone: Comment on above: Reference Range: 41. 0 - 52.0 Hemoglobin (Bld) [Mass/Vol] 15.6 g/dL See Below [facility] Work Phone: Comment on above: Reference Range: 13. 5 - 17.5 MCV (RBC) [Entitic vol] 92 fL 80 - 100 -[facility] Work Phone: Platelets (Bld) [#/Vol] 224 {x10E9/L} 150 - 450 -[facility] Work Phone: RBC (Bld) [#/Vol] 4.99 {x10E12/L} See Below -[facility] Work Phone: Comment on above: Reference Range: 4.5 0 - 5.90 WBC (Bld) [#/Vol] 4.9 {x10E9/L} 4.4 - 11.3 [facility] Work Phone: Metabolic Panelon 03-07-2019 ALP [Catalytic activity/Vol] 53 U/L 33 - 120 -[facility] Work Phone: Anion gap [Moles/Vol] 10 mmol/L 10 - 20 -[facility] Work Phone: Bilirubin [Mass/Vol] 0.6 mg/dL 0.0 - 1.2 -[facility] Work Phone: Calcium [Mass/Vol] 9.3 mg/dL 8.6 - 10.3 -[facility] Work Phone: Chloride [Moles/Vol] 106 mmol/L 98 - 107 -[facility] Work Phone: CO2 [Moles/Vol] 29 mmol/L 21 - 32 -[facility] Work Phone: Creatinine [Mass/Vol] 1.15 mg/dL See Below [facility] Work Phone: Comment on above: Reference Range: 0.5 0 - 1.30 Glucose [Mass/Vol] 90 mg/dL 74 - 99 [facility] [employer] [facility] Work Phone: Potassium [Moles/Vol] 3.9 mmol/L 3.5 - 5.3 [facility] Work Phone: Protein [Mass/Vol] 7.4 g/dL 6.4 - 8.2 [facility] Work Phone: Sodium [Moles/Vol] 141 mmol/L 136 - 145 [facility] Work Phone: Urea nitrogen [Mass/Vol] 15 mg/dL 6 - 23 [facility] Work Phone: Otheron 03-07-2019 Albumin BCP dye [Mass/Vol] 4.7 g/dL 3.4 - 5.0 [facility] Work Phone: ALT With P-5'-P [Catalytic activity/Vol] 31 U/L 10 - 52 [facility] Work Phone: Comment on above: Patients treated wit h Sulfasalazine may generate falsely decreased results for ALT. AST With P-5'-P [Catalytic activity/Vol] 18 U/L 9 - 39 [facility] Work Phone: Erythrocyte distribution width (RBC) [Ratio] 12.8 % See Below [facility] Work Phone: Comment on above: Reference Range: 11. 5 - 14.5 MCHC (RBC) [Mass/Vol] 34.0 g/dL See Below [facility] Work Phone: Comment on above: Reference Range: 32. 0 - 36.0 >60 >60 [facility] Work Phone: Comment on above: CALCULATIONS OF MARLEY MATED GFR ARE PERFORMED USING THE MDRD STUDY EQUATION FOR THE IDMS-TRACEABLE CREATININE METHODS. CLIN CHEM 2007;53:766-72 Primary Care Visit (Text/For ms)on 03-07-2019 Primary Care Visit (Text/Forms) Diagnoses/Problems Assessed Generalized abdominal pain (789.07) (R10.84) Orders Generalized abdominal pain Complete Blood Count; Specimen Source:Blood (BLD); Status:Active; Requested for:07Mar2019; Gastroenterology Referral Evaluation and Treatment Evaluate AND Treat 1 yr diffuse abd pain Status: Hold For - Scheduling Requested for: 07Mar2019 Comprehensive Metabolic Panel; Status:Active; Requested for:07Mar2019; CT Abdomen and Pelvis with Contrast; Status:Hold For - Scheduling; Requested for:19Mar2019; Patient taking Metformin or Derivatives? : No Radiologist to Determine Optimal Study : Y What are the patient's signs and symptoms? : abd pain x 1 yr Sedimentation Rate, Erythrocyte; Specimen Source:Blood (BLD); Status:Active; Requested for:07Mar2019; TSH - Thyroid Stimulating Hormone, Serum; Specimen Source:Blood (BLD); Status:Active; Requested for:07Mar2019; SocHx: Non-smoker Tobacco Use Screening; Status:Complete; Done: 07Mar2019 Patient Discussion/Summary Lab and CT abdomen and pelvis GI referral patient requests stronger gastroenterology Chief Complaint all quad abd pain x 1 year diarrhea fatigue History of Present Illness 1 year diffuse abdominal pain ache progressive severity now he is unable to lay on his abdomen. Has increasing frequency of bowel movements at a [place] 4-6 no blood no family history: Cancer has fatigue no associated dyspnea Pepsi a discussed past diagnosis Qureshi's esophagus last scope 5 years ago and told unless he has problems to be rechecked by [place]. Given duration affect on the ADL and progression will image and refer to GI [place] 4-6 Review of Systems Constitutional: not feeling tired . weight stable to 10#. Eyes: no eyesight problems, no blurry vision and no double vision. ENT: no ear pain, no sore throat, no nasal congestion and no hoarseness. Cardiovascular: no chest pain, no palpitations, no lower extremity edema, no leg claudication and no chest pressure . no change in exercise tolerance or capacity since last ov. Respiratory: no cough, no dyspnea with exertion and no dyspnea at rest. Gastrointestinal: ++bdominal pain, no constipation, ++ diarrhea, no heartburn, no bloating and no blood in stools. Musculoskeletal: no localized joint pain, no muscle weakness and no joint stiffness. Integumentary: no skin lesions and no rashes. Neurological: no headache and no numbness or tingling. Psychiatric: no feelings of anxiety and no feelings of depression. Endocrine: no temperature intolerance, no excessive urination and no increase in thirst. Hematologic/Lymphatic: no recurrent infections. Active Problems Problems Qureshi's esophagus (530.85) (K22.70) Surgical History Problems History of Appendectomy Family History Father Family history of cerebrovascular accident (CVA) (V17.1) (Z82.3) Family history of pancreatic cancer (V16.0) (Z80.0) Social History Problems Minimum alcohol consumption Non-smoker (V49.89) (Z78.9) Smokeless tobacco use (305.1) (Z72.0) Current Meds Medication NameInstruction No Reported Medications Allergies Medication No Known Drug Allergies Vitals Vital Signs Recorded: 07Mar2019 08:13AM Heart Rate: 88 Systolic: 136 Diastolic: 96 Height: 6 ft 1 in Weight: 204 lb BMI Calculated: 26.91 BSA Calculated: 2.17 Physical Exam General: Alert, No acute distress. Appears stated age Eye: Pupils are equal, round and reactive to light, Extraocular movements are intact, Normal conjunctiva. Neck: Supple, Non-tender, No carotid bruit, No jugular venous distention, No lymphadenopathy, No thyromegaly. Respiratory: Lungs are clear to auscultation, Respirations are non-labored, Breath sounds are equal. Cardiovascular: Normal rate, Regular rhythm, No murmur. Gastrointestinal: Soft, Non-tender, No organomegaly. No solid or pulsatile mass Integumentary: Warm, Dry. No concerning lesions on exposed areas Neurologic: Alert, Oriented. Gross and fine motor intact, CN 2-12 intact Psychiatric: Cooperative, Appropriate mood AND affect. Signatures Electronically signed by : Deacon Harper MD,; Mar 07 2019 2:18PM EST (Author) Normal [employer] Sedimentation Rate, Erythroc yteon 03-07-2019 ESR (Bld) [Velocity] 11 mm/h 0 - 15 [facility] [facility] Work Phone: TSH - Thyroid Stimulating Ho rmone, Serumon 03-07-2019 TSH Qn 1.44 {mIU/L} See Below [facility] [facility] Work Phone: Comment on above: Reference Range: 0.4 4 - 3.98 TSH testing is performed using different testing methodology at [facility] than at other [facility]. Direct result comparisons should only be made within the same method. Vital Signs Date Time Vital Sign Value Performing Clinician Facility 07-19-2024 08:12-0400 Body height 182.[address] Deacon Harper MD Work Phone: [facility] 07-19-2024 08:12-0400 Body mass index (BMI) [Ratio] 27.3 kg/m2 Dr. Deacon Harper MD Work Phone: [facility] 07-19-2024 08:12-0400 Body temperature 97 [degF] Dr. Deacon Harper MD Work Phone: [facility] 07-19-2024 08:12-0400 Body weight 91.[address] Deacon Harper MD Work Phone: [facility] 07-19-2024 08:12-0400 Diastolic blood pressure 87 mm[Hg] Dr. Deacon Harper MD Work Phone: [facility] 07-19-2024 08:12-0400 Heart rate 94 /min Dr. Deacon Harper MD Work Phone: [facility] 07-19-2024 08:12-0400 Respiratory rate 16 /min Dr. Deacon Harper MD Work Phone: [facility] 07-19-2024 08:12-0400 SaO2% (BldA) [Mass fraction] 100 % Dr. Deacon Harper MD Work Phone: [facility] 07-19-2024 08:12-0400 Systolic blood pressure 136 mm[Hg] Dr. Deacon Harper MD Work Phone: [facility] 07-08-2024 08:01-0400 Body mass index (BMI) [Ratio] 27.26 kg/m2 Deacon Harper MD Work Phone: [facility] 07-08-2024 08:01-0400 Body weight 91.17 kg Deacon Harper MD Work Phone: [facility] 07-08-2024 08:01-0400 Diastolic blood pressure 88 mm[Hg] Deacon Harper MD Work Phone: [facility] 07-08-2024 08:01-0400 Heart rate 92 /min Deacon Harper MD Work Phone: [facility] 07-08-2024 08:01-0400 SaO2% (BldA) [Mass fraction] 99 % Deacon Harper MD Work Phone: [facility] 07-08-2024 08:01-0400 Systolic blood pressure 130 mm[Hg] Deacon Harper MD Work Phone: [facility] 06-18-2024 08:13-0400 Body mass index (BMI) [Ratio] 27.4 kg/m2 Dr. Deacon Harper MD Work Phone: [facility] 06-18-2024 08:13-0400 Body temperature 96.8 [degF] Dr. Deacon Harper MD Work Phone: [facility] 06-18-2024 08:13-0400 Body weight 91.[address] Deacon Harper MD Work Phone: [facility] 06-18-2024 08:13-0400 Diastolic blood pressure 86 mm[Hg] Dr. Deacon Harper MD Work Phone: [facility] 06-18-2024 08:13-0400 Heart rate 78 /min Dr. Deacon Harper MD Work Phone: [facility] 06-18-2024 08:13-0400 Respiratory rate 18 /min Dr. Deacon Harper MD Work Phone: [facility] 06-18-2024 08:13-0400 SaO2% (BldA) [Mass fraction] 99 % Dr. Deacon Harper MD Work Phone: [facility] 06-18-2024 08:13-0400 Systolic blood pressure 138 mm[Hg] Dr. Deacon Harper MD Work Phone: [facility] 06-13-2024 08:12-0400 Body mass index (BMI) [Ratio] 27.2 kg/m2 Dr. Deacon Harper MD Work Phone: [facility] 06-13-2024 08:12-0400 Body temperature 97.6 [degF] Dr. Deacon Harper MD Work Phone: [facility] 06-13-2024 08:12-0400 Body weight 91.[address] Deacon Harper MD Work Phone: [facility] 06-13-2024 08:12-0400 Diastolic blood pressure 90 mm[Hg] Dr. Deacon Harper MD Work Phone: 5(901)979-020171 [place] [address] 06-13-2024 08:12-0400 Heart rate 91 /min Dr. Deacon Harper MD Work Phone: 3(636)467-346971 [place] [address] 06-13-2024 08:12-0400 Respiratory rate 18 /min Dr. Deacon Harper MD Work Phone: 8(045)[phone] [place] [address] 06-13-2024 08:12-0400 SaO2% (BldA) [Mass fraction] 98 % Dr. Deacon Harper MD Work Phone: [facility] 06-13-2024 08:12-0400 Systolic blood pressure 116 mm[Hg] Dr. Deacon Harper MD Work Phone: 8(762)707-525971 [place] [address] 06-06-2024 08:18-0400 Body mass index (BMI) [Ratio] 27.7 kg/m2 Dr. Deacon Harper MD Work Phone: [facility] 06-06-2024 08:18-0400 Body temperature 96.8 [degF] Dr. Deacon Harper MD Work Phone: [facility] 06-06-2024 08:18-0400 Body weight 92.[address] Deacon Harper MD Work Phone: [facility] 06-06-2024 08:18-0400 Diastolic blood pressure 96 mm[Hg] Dr. Deacon Harper MD Work Phone: [facility] 06-06-2024 08:18-0400 Heart rate 77 /min Dr. Deacon Harper MD Work Phone: [facility] 06-06-2024 08:18-0400 Respiratory rate 18 /min Dr. Deacon Harper MD Work Phone: [facility] 06-06-2024 08:18-0400 SaO2% (BldA) [Mass fraction] 100 % Dr. Deacon Harper MD Work Phone: [facility] 06-06-2024 08:18-0400 Systolic blood pressure 144 mm[Hg] Dr. Deacon Harper MD Work Phone: [facility] 05-29-2024 08:06-0400 Body mass index (BMI) [Ratio] 27.9 kg/m2 Dr. Deacon Harper MD Work Phone: [facility] 05-29-2024 08:06-0400 Body temperature 96.9 [degF] Dr. Deacon Harper MD Work Phone: [facility] 05-29-2024 08:06-0400 Body weight 93.[address] Deacon Harper MD Work Phone: [facility] 05-29-2024 08:06-0400 Diastolic blood pressure 88 mm[Hg] Dr. Deacon Harper MD Work Phone: [facility] 05-29-2024 08:06-0400 Heart rate 87 /min Dr. Deacon Harper MD Work Phone: [facility] 05-29-2024 08:06-0400 Respiratory rate 16 /min Dr. Deacon Harper MD Work Phone: [facility] 05-29-2024 08:06-0400 SaO2% (BldA) [Mass fraction] 100 % Dr. Deacon Harper MD Work Phone: [facility] 05-29-2024 08:06-0400 Systolic blood pressure 140 mm[Hg] Dr. Deacon Harper MD Work Phone: [facility] 05-21-2024 08:22-0400 Body mass index (BMI) [Ratio] 27.9 kg/m2 Dr. Deacon Harper MD Work Phone: [facility] 05-21-2024 08:22-0400 Body temperature 98.1 [degF] Dr. Deacon Harper MD Work Phone: [facility] 05-21-2024 08:22-0400 Body weight 93.[address] Deacon Harper MD Work Phone: [facility] 05-21-2024 08:22-0400 Diastolic blood pressure 89 mm[Hg] Dr. Deacon Harper MD Work Phone: [facility] 05-21-2024 08:22-0400 Heart rate 88 /min Dr. Deacon Harper MD Work Phone: [facility] 05-21-2024 08:22-0400 Respiratory rate 18 /min Dr. Deacon Harper MD Work Phone: [facility] 05-21-2024 08:22-0400 SaO2% (BldA) [Mass fraction] 97 % Dr. Deacon Harper MD Work Phone: [facility] 05-21-2024 08:22-0400 Systolic blood pressure 125 mm[Hg] Dr. Deacon Harper MD Work Phone: [facility] 05-16-2024 08:18-0400 Body mass index (BMI) [Ratio] 27.9 kg/m2 Dr. Deacon Harper MD Work Phone: [facility] 05-16-2024 08:18-0400 Body temperature 98 [degF] Dr. Deacon Harper MD Work Phone: [facility] 05-16-2024 08:18-0400 Body weight 93.[address] Deacon Harper MD Work Phone: [facility] 05-16-2024 08:18-0400 Diastolic blood pressure 100 mm[Hg] Dr. Deacon Harper MD Work Phone: [facility] 05-16-2024 08:18-0400 Heart rate 81 /min Dr. Deacon Harper MD Work Phone: [facility] 05-16-2024 08:18-0400 Respiratory rate 18 /min Dr. Deacon Harper MD Work Phone: [facility] 05-16-2024 08:18-0400 SaO2% (BldA) [Mass fraction] 99 % Dr. Deacon Harper MD Work Phone: [facility] 05-16-2024 08:18-0400 Systolic blood pressure 144 mm[Hg] Dr. Deacon Harper MD Work Phone: [facility] 04-23-2024 12:55-0500 Diastolic blood pressure 89 mm[Hg] Irena Edouard MD Work Phone: [facility] 04-23-2024 12:55-0500 Heart rate 84 /min Irena Edouard MD Work Phone: 2(234)112-[address] [place] [address] 04-23-2024 12:55-0500 Respiratory rate 16 /min Irena Edouard MD Work Phone: [facility] 04-23-2024 12:55-0500 SaO2% (BldA) [Mass fraction] 98 % Irena Edouard MD Work Phone: [facility] 04-23-2024 12:55-0500 Systolic blood pressure 152 mm[Hg] Irena Edouard MD Work Phone: [facility] 04-23-2024 12:25-0500 Body temperature 96.69 [degF] Irena Edouard MD Work Phone: [facility] 04-23-2024 09:53-0500 Body height 182.9 cm Irena Edouard MD Work Phone: [facility] 04-23-2024 09:53-0500 Body mass index (BMI) [Ratio] 27.72 kg/m2 Irena Edouard MD Work Phone: [facility] 04-23-2024 09:53-0500 Body weight 92.7 kg Irena Eoduard MD Work Phone: [facility] 03-22-2024 10:28-0500 Body height 182.[address] Deacon Harper MD Work Phone: [facility] 03-22-2024 10:28-0500 Body mass index (BMI) [Ratio] 27.5 kg/m2 Dr. Deacon Harper MD Work Phone: [facility] 03-22-2024 10:28-0500 Body temperature 96.8 [degF] Dr. Deacon Harper MD Work Phone: [facility] 03-22-2024 10:28-0500 Body weight 92.[address] Deacon Harper MD Work Phone: [facility] 03-22-2024 10:28-0500 Diastolic blood pressure 88 mm[Hg] Dr. Deacon Harper MD Work Phone: [facility] 03-22-2024 10:28-0500 Heart rate 96 /min Dr. Deacon Harper MD Work Phone: [facility] 03-22-2024 10:28-0500 Respiratory rate 16 /min Dr. Deacon Harper MD Work Phone: [facility] 03-22-2024 10:28-0500 SaO2% (BldA) [Mass fraction] 99 % Dr. Deacon Harper MD Work Phone: [facility] 03-22-2024 10:28-0500 Systolic blood pressure 122 mm[Hg] Dr. Deacon Harper MD Work Phone: [facility] 03-05-2024 11:55-0500 Diastolic blood pressure 97 mm[Hg] Irena Edouard MD Work Phone: [facility] 03-05-2024 11:55-0500 Heart rate 69 /min Irena Edouard MD Work Phone: [facility] 03-05-2024 11:55-0500 Respiratory rate 16 /min Irena Edouard MD Work Phone: 0(897)[phone] [place] [address] 03-05-2024 11:55-0500 SaO2% (BldA) [Mass fraction] 97 % Irena Edouard MD Work Phone: 8(267)[phone] [place] [address] 03-05-2024 11:55-0500 Systolic blood pressure 136 mm[Hg] Irena Edouard MD Work Phone: 5(810)[phone] [place] [address] 03-05-2024 11:11-0500 Body temperature 96.91 [degF] Irena Edouard MD Work Phone: 1(181)[phone] [place] [address] 03-05-2024 09:12-0500 Body height 182.9 cm Irena Edouard MD Work Phone: 7(981)[phone] [place] [address] 03-05-2024 09:12-0500 Body mass index (BMI) [Ratio] 27.75 kg/m2 Irena Edouard MD Work Phone: [phone] [place] [address] 03-05-2024 09:12-0500 Body weight 92.8 kg Irena Edouard MD Work Phone: 4(717)[phone] [place] [address] 01-10-2024 08:06-0500 Body mass index (BMI) [Ratio] 27.44 kg/m2 Irena Edouard MD Work Phone: 6(349)433-435219 [place] [address] 01-10-2024 08:06-0500 Body weight 94.35 kg Irena Edouard MD Work Phone: 3(296)306-828219 [place] [address] 01-10-2024 08:06-0500 Diastolic blood pressure 94 mm[Hg] Irena Edouard MD Work Phone: 2(175)066-359619 [place] [address] 01-10-2024 08:06-0500 Heart rate 84 /min Irena Edouard MD Work Phone: 9(698)[phone] [place] [address] 01-10-2024 08:06-0500 Systolic blood pressure 129 mm[Hg] Irena Edouard MD Work Phone: 2(722)714-619719 [place] [address] 12-04-2023 07:39-0400 Body mass index (BMI) [Ratio] 27.71 kg/m2 Irena Edouard MD Work Phone: 9(075)[phone] [place] [address] 12-04-2023 07:39-0400 Body weight 95.25 kg Irena Edouard MD Work Phone: [facility] 12-04-2023 07:39-0400 Diastolic blood pressure 106 mm[Hg] Irena Edouard MD Work Phone: [facility] 12-04-2023 07:39-0400 Heart rate 91 /min Irena Edouard MD Work Phone: [facility] 12-04-2023 07:39-0400 Systolic blood pressure 148 mm[Hg] Irena Edouard MD Work Phone: [facility] 11-14-2023 14:36-0400 Body height 185.4 cm Deacon Harper MD Work Phone: [facility] 11-14-2023 14:36-0400 Body mass index (BMI) [Ratio] 27.68 kg/m2 Deacon Harper MD Work Phone: [facility] 11-14-2023 14:36-0400 Body weight 95.17 kg Deacon Harper MD Work Phone: [facility] 11-14-2023 14:36-0400 Diastolic blood pressure 96 mm[Hg] Deacon Harper MD Work Phone: [facility] 11-14-2023 14:36-0400 Heart rate 100 /min Deacon Harper MD Work Phone: [facility] 11-14-2023 14:36-0400 SaO2% (BldA) [Mass fraction] 98 % Deacon Harper MD Work Phone: [facility] 11-14-2023 14:36-0400 Systolic blood pressure 138 mm[Hg] Deacon Harper MD Work Phone: [facility] 07-06-2023 08:25-0400 Body height 185.4 cm Deacon Harper MD Work Phone: [facility] 07-06-2023 08:25-0400 Body mass index (BMI) [Ratio] 26.86 kg/m2 Deacon Harper MD Work Phone: [facility] 07-06-2023 08:25-0400 Body weight 92.35 kg Deacon Harper MD Work Phone: [facility] 07-06-2023 08:25-0400 Diastolic blood pressure 72 mm[Hg] Deacon Harper MD Work Phone: [facility] 07-06-2023 08:25-0400 Heart rate 70 /min Deacon Harper MD Work Phone: [facility] 07-06-2023 08:25-0400 SaO2% (BldA) [Mass fraction] 97 % Deacon Harper MD Work Phone: [facility] 07-06-2023 08:25-0400 Systolic blood pressure 110 mm[Hg] Deacon Harper MD Work Phone: [facility] 08-11-2022 08:41-0400 Body height 185.4 cm Deacon Harper MD Work Phone: [facility] 08-11-2022 08:41-0400 Body mass index (BMI) [Ratio] 26.14 kg/m2 Deacon Harper MD Work Phone: [facility] 08-11-2022 08:41-0400 Body weight 89.86 kg Deacon Harper MD Work Phone: [facility] 08-11-2022 08:41-0400 Diastolic blood pressure 70 mm[Hg] Deacon Harper MD Work Phone: [facility] 08-11-2022 08:41-0400 Heart rate 82 /min Deacon Harper MD Work Phone: [facility] 08-11-2022 08:41-0400 SaO2% (BldA) [Mass fraction] 98 % Deacon Harper MD Work Phone: [facility] 08-11-2022 08:41-0400 Systolic blood pressure 100 mm[Hg] Deacon Harper MD Work Phone: [phone] [place] [address] 03-10-2022 18:48-0500 Body height 182.8 cm Deacon Leyvacarmela Other Phone: [facility] 03-10-2022 18:48-0500 Body temperature 97.88 [degF] Deacon Leyvacel Other Phone: [facility] 03-10-2022 18:48-0500 Diastolic blood pressure 87 mm[Hg] Deacon Leyvacel Other Phone: [facility] 03-10-2022 18:48-0500 Heart rate 91 /min Deacon Leyvacel Other Phone: [facility] 03-10-2022 18:48-0500 Respiratory rate 16 /min Deacon Leyvacel Other Phone: [facility] 03-10-2022 18:48-0500 SaO2% (BldA) [Mass fraction] 98 % Deacon Leyvacarmela Other Phone: [facility] 03-10-2022 18:48-0500 Systolic blood pressure 111 mm[Hg] Deacon Leyvacarmela Other Phone: [facility] 03-07-2019 10:13-0500 BMI (Body Mass Index) 26.91 kg/m2 Deacon Harper -[employer] [facility] Work Phone: 03-07-2019 10:13-0500 Body weight 92.53 kg Deacon Harper -[employer] [facility] Work Phone: 03-07-2019 10:13-0500 BP Diastolic 96 mm[Hg] Deacon Harper [facility] [employer] [facility] Work Phone: 03-07-2019 10:13-0500 BP Systolic 136 mm[Hg] Deacon Harper [facility] [employer] [facility] Work Phone: 03-07-2019 10:13-0500 BSA (Body Surface Area) 2.17 m2 Deacon Harper [facility] [employer] [facility] Work Phone: 03-07-2019 10:13-0500 Height 185.42 cm Deacon Harper -[facility] Work Phone: 03-07-2019 10:13-0500 Pulse (Heart Rate) 88 /min Deacon Harper -[facility] Work Phone: Encounters Encounter Date Encounter Type Care Provider Facility Start: 08-08-2024 End: 08-08-2024 Subsequent hospital visit by physician Dustin [address] Comment on above: Screening for cardio vascular condition Start: 08-08-2024 End: 08-08-2024 ambulatory DEACON D[facility] Start: 07-19-2024 End: 07-19-[address] [facility] Work Phone: Start: 07-19-2024 End: 07-19-[address] Deacon Harper MD Work Phone: [facility] Work Phone: Start: 07-08-2024 End: 07-08-2024 Patient encounter status Deacon Harper MD Work Phone: [facility] Work Phone: Start: 07-08-2024 End: 07-08-2024 Periodic preventive med est patient 40-64yrs Deacon Harper MD Work Phone: [facility] Comment on above: Wellness examination (Primary Dx); Screening for cardiovascular condition; Mixed hyperlipidemia; Malignant neoplasm of prostate (Multi) Start: 07-08-2024 End: 07-08-2024 ambulatory [facility] Start: 07-08-2024 End: 07-08-2024 Encounter for general adult medical examination without abnormal findings [facility] Start: 06-19-2024 Non-patient / Non-visit [facility] Alfred[facility] Work Phone: Start: 06-19-2024 ambulatory Alex Lopez Facility: [facility] Start: 06-18-[address] Alex Lopez DO -Radiation Oncology Start: 06-18-2024 End: 06-18-[address] [facility] Work Phone: Start: 06-18-2024 End: 06-18-2024 ambulatory Alex Lopez Facility:[facility] Start: 06-13-2024 End: 06-13-[address] [facility] Work Phone: Start: 06-13-2024 End: 06-13-2024 ambulatory Alex Lopez Facility:[facility] Start: 06-06-2024 End: 06-06-[address] [facility] Work Phone: Start: 06-06-2024 End: 06-06-2024 ambulatory Alex Lopez Facility:[facility] Start: 05-29-2024 End: 05-29-[address] Alex [facility] Work Phone: Start: 05-29-2024 End: 05-29-2024 ambulatory Alex Lopez Facility:[facility] Start: 05-21-2024 End: 05-21-[address] [facility] Work Phone: Start: 05-21-2024 End: 05-21-2024 ambulatory Alex Lopez Facility:[facility] Start: 05-16-2024 End: 05-16-[address] [facility] Work Phone: Start: 05-16-2024 End: 05-16-2024 ambulatory Alex Lopez Facility:[facility] Start: 05-10-2024 ambulatory Alex Lopez Facility: [facility] Start: 05-10-2024 Non-patient / Non-visit Dr. Alfredo [facility]AR [facility] Start: 05-09-2024 ambulatory Alex Lopez Facility: [facility] Start: 05-09-2024 Non-patient / Non-[facility] Start: 04-29-2024 End: 04-29-[address] Alex Lopez DO [facility] Work Phone: Start: 04-29-2024 End: 04-29-[address] Deacon Harper MD Work Phone: [facility] Work Phone: Start: 04-29-2024 Non-patient / Non-visit Dr. Alfredo ZAFAR [facility] Start: 04-29-[address] Alex Lopez -Radiation Oncology Start: 04-29-2024 End: 04-29-2024 ambulatory Alex Jessica Facility:[facility] Start: 04-23-2024 End: 04-23-2024 Subsequent hospital visit by physician Irena Edouard MD Work Phone: [facility] [place] Comment on above: Malignant neoplasm o f prostate (Multi) (Primary Dx); Prostate cancer (Multi) Start: 04-22-2024 ambulatory [facility] Start: 03-22-2024 End: 03-22-[address] Alex Lopez [facility] Work Phone: Start: 03-22-2024 End: 03-22-2024 ambulatory Alex Lopez Facility[facility] Start: 03-20-2024 Non-patient / Non-visit Maria Alvares si [facility] Work Phone: Start: 03-20-2024 ambulatory Deacon Harper Facilit y:[facility] Start: 03-20-2024 End: 03-20-2024 Office outpatient visit 25 minutes Irena Edouard MD Work Phone: [facility] Comment on above: Elevated PSA; Nocturia; Malignant neoplasm of prostate (Multi) Start: 03-20-2024 End: 03-20-2024 ambulatory [facility] Start: 03-05-2024 End: 03-05-2024 Subsequent hospital visit by physician Irena Edouard MD Work Phone: [facility] [place] Comment on above: Elevated PSA Start: 02-27-2024 ambulatory [facility] Start: 02-19-2024 End: 02-19-2024 Office outpatient visit 25 minutes Irena Edouard MD Work Phone: [facility] Comment on above: Elevated PSA; Nocturia; BPH without obstruction/lower urinary tract symptoms; Prostatitis, unspecified prostatitis type Start: 02-19-2024 End: 02-19-2024 ambulatory [facility] Start: 02-09-2024 End: 02-09-2024 ambulatory [facility] Start: 02-09-2024 End: 02-09-2024 Subsequent hospital visit by physician [facility] Comment on above: Elevated PSA Start: 02-09-2024 End: 02-09-2024 ambulatory [facility] Start: 01-25-2024 End: 01-25-2024 Office outpatient visit 25 minutes Irena Edouard MD Work Phone: [facility] Comment on above: Prostatitis, unspeci fied prostatitis type (Primary Dx); BPH without obstruction/lower urinary tract symptoms; Elevated PSA; Other fatigue Start: 01-25-2024 End: 01-25-2024 ambulatory [facility] Start: 01-15-2024 End: 01-15-2024 ambulatory [facility] Start: 01-10-2024 End: 01-10-2024 Office outpatient visit 25 minutes Irena Edouard MD Work Phone: [facility] Comment on above: Prostatitis, unspeci fied prostatitis type (Primary Dx); Nocturia; BPH without obstruction/lower urinary tract symptoms Start: 01-10-2024 End: 01-10-2024 ambulatory [facility] Start: 12-04-2023 End: 12-04-2023 Office outpatient new 45 minutes Irena Edouard MD Work Phone: [facility] Comment on above: Painful ejaculation (Primary Dx); BPH without obstruction/lower urinary tract symptoms; Prostatitis, unspecified prostatitis type; Nocturia Start: 12-04-2023 End: 12-04-2023 ambulatory [facility] Start: 11-14-2023 End: 11-14-2023 ambulatory DEACON HARPER [facility] Start: 11-14-2023 End: 11-14-2023 Office outpatient visit 15 minutes Deacon Harper MD Work Phone: [facility] Comment on above: Right inguinal pain (Primary Dx) Start: 07-06-2023 End: 07-06-2023 ambulatory DEACON HARPER [facility] Start: 07-06-2023 End: 07-06-2023 Encounter for general adult medical examination without abnormal findings DEACON HARPER [facility] Start: 07-06-2023 End: 07-06-2023 Patient encounter status Deacon Harper MD Work Phone: [facility] Work Phone: Start: 07-06-2023 End: 07-06-2023 Periodic preventive med est patient 40-64yrs Deacon Harper MD Work Phone: [facility] Comment on above: Wellness examination (Primary Dx) Start: 08-11-2022 End: 08-11-2022 Patient encounter status Deacon Harper MD Work Phone: [facility] Work Phone: Start: 08-11-2022 End: 08-11-2022 Periodic preventive med est patient 40-64yrs Deacon Harper MD Work Phone: [facility] Comment on above: Well adult exam (Kanika brady Dx) Start: 03-10-2022 End: 03-10-2022 Emergency department patient visit Arthur Bethea [facility] Procedures Date Procedure Procedure Detail Performing Clinician Start: 08-08-2024 Ct heart no contrast quant eval coronry calcium Deacon Harper MD Work Phone: Start: 07-08-2024 Lipid 1996 panel - S mitchell or Plasma Dustin 2 Start: 04-29-2024 MRI of pelvis with contrast Dr. Deacon Harper MD Work Phone: Start: 04-23-2024 PULSE OXIMETRY, SPOT Kaley Edouard MD Work Phone: Start: 04-02-2024 Positron emission tomography with computed tomography Dr. Deacon Harper MD Work Phone: Start: 11-14-2023 Urnls dip stick/tabl et rgnt auto w/o microscopy Deacon Harper MD Work Phone: Start: 07-06-2023 CBC panel - Blood by Automated count DEACON HARPER Start: 07-06-2023 Comprehensive metabo lic 2000 panel - Serum or Plasma DEACON HARPER Start: 07-06-2023 Lipid panel DEACON ARANDA Start: 07-06-2023 Lipid 1996 panel - S mitchell or Plasma Deacon Harper MD Work Phone: Start: 08-11-2022 Lipid 1996 panel - S mitchell or Plasma Deacon Harper MD Work Phone: Start: 10-21-2019 Colonoscopy Deacon Aranda MD Work Phone: Start: 03-21-2019 Ultrasound Abdomen Complete Deacon Harper Start: 03-07-2019 Assay of thyroid stimulating hormone tsh Deacon Harper Start: 03-07-2019 CBC W Auto Different ial panel - Blood Deacon Harper Start: 03-07-2019 Comprehensive metabo lic 2000 panel Deacon Harper Start: 03-07-2019 CT Abdomen and Pelvi s with Contrast Deacon Harper Start: 03-07-2019 Sedimentation rate r bc automated Deacon Harper Appendectomy Deacon Harper Plan of Treatment Date Care Activity Detail Author Start: 10-25-2033 DTaP/Tdap/Td Vaccine s (2 - Td or Tdap) DTaP/Tdap/Td Vaccines (2 - Td or Tdap) [facility] Start: 10-20-2029 Screening for malign ant neoplasm of colon [facility] Start: 07-08-2029 Lipid panel Lipid Panel [facility] Start: 07-05-2028 Lipid panel Lipid Panel [facility] Start: 08-12-2027 Lipid panel Lipid Panel [facility] Start: 08-11-2025 Diabetes mellitus screening Diabetes Screening [facility] Start: 07-09-2025 End: 07-09-2025 Patient encounter procedure 07/09/2025 8:00 AM EDT Office Visit [address] [address] Deacon Harper MD [address] [facility] Start: 10-21-2024 Influenza vaccination Influenz a Vaccine (Season Ended) [facility] Start: 08-08-2024 End: 08-08-2024 Patient encounter procedure 08/08/2024 9:00 AM EDT Appointment [facility] [address] [place] [address] [facility] Start: 07-08-2024 End: 07-08-2025 CBC panel - Blood by Automated count CBC Lab Routine Wellness examination Mixed hyperlipidemia Expected: 07/08/2024 (Approximate), Expires: 07/08/2025 [facility] Work Phone: Comment on above: Expected: 07/08/2024 (Approximate), Expires: 07/08/2025 Start: 07-08-2024 End: 07-08-2025 Comprehensive metabolic 2000 panel - Serum or Plasma Comprehensive Metabolic Panel Lab Routine Wellness examination Mixed hyperlipidemia Expected: 07/08/2024 (Approximate), Expires: 07/08/2025 [facility] Work Phone: Comment on above: Expected: 07/08/2024 (Approximate), Expires: 07/08/2025 Start: 07-08-2024 End: 07-08-2025 CT for calcium scoring WO contrast and CTA W contrast IV Heart and coronary arteries CT cardiac scoring wo IV contrast Imaging Routine Screening for cardiovascular condition Expected: 07/08/2024, Expires: 07/08/2025 [facility] Service Area Work Phone: Comment on above: Expected: 07/08/2024 , Expires: 07/08/2025 Start: 07-08-2024 End: 07-08-2025 Lipid 1996 panel - Serum or Plasma Lipid Panel Lab Routine Wellness examination Mixed hyperlipidemia Expected: 07/08/2024 (Approximate), Expires: 07/08/2025 [facility] Work Phone: Comment on above: Expected: 07/08/2024 (Approximate), Expires: 07/08/2025 Start: 07-08-2024 End: 07-08-2024 Patient encounter procedure [facility] Start: 07-06-2024 Yearly Adult Physical Yearly A dult Physical [facility] Start: 05-16-2024 Patient referral [facility] Work Phone: Start: 05-02-2024 End: 05-02-2024 Telemedicine consultation with patient 05/02/2024 8:15 AM EDT Telemedicine [facility] [address] [place] [address] Irena Edouard MD [address] [place] [address] [facility] Start: 2024 Pneumococcal vaccination Pneum ococcal Vaccine (1 of 1 - PCV) [facility] Start: 2024 Zoster Vaccines (1 of 2) Zoste r Vaccines (1 of 2) [facility] Start: 03-05-2024 End: 03-05-2024 Prostate needle biopsy any approach BIOPSY, PROSTATE, WITH IMAGING GUIDANCE Elevated PSA 03/05/2024 10:56 AM EST [facility] Start: 03-05-2024 End: 03-05-2024 Us guidance needle placement img s&i CREATION, CRANIAL ITZ HOLE, WITH IMAGING GUIDANCE Elevated PSA 03/05/2024 10:56 AM EST [facility] Start: 03-05-2024 End: 03-05-2024 Us transrectal ULTRASOUND, PROSTATE, ENDORECTAL Elevated PSA 03/05/2024 10:56 AM EST [facility] Start: 02-29-2024 End: 02-29-2024 Patient encounter procedure 02/29/2024 8:45 AM EST Office Visit [facility] [address] [place] [address] Irena Edouard MD [address] [place] [address] [facility] Start: 01-25-2024 End: 01-24-2025 MR Prostate MR prostate with soren boundaries if pirads 3 or above Imaging Routine Elevated PSA Expected: 01/25/2024 (Approximate), Expires: 01/24/2025 [facility] Service Area Work Phone: Comment on above: Expected: 01/25/2024 (Approximate), Expires: 01/24/2025 Start: 01-25-2024 End: 01-24-2025 Testosterone [Mass/volume] in Serum or Plasma Testosterone Lab Routine Other fatigue Expected: 01/25/2024 (Approximate), Expires: 01/24/2025 [facility] Work Phone: Comment on above: Expected: 01/25/2024 (Approximate), Expires: 01/24/2025 Start: 01-25-2024 End: 01-25-2024 Telemedicine consultation with patient 01/25/2024 9:00 AM EST Telemedicine [facility] [address] [facility] [address] [place] [address] Irena Edouard MD [address] [place] [address] [facility] Start: 01-10-2024 End: 01-10-2024 Patient encounter procedure 01/10/2024 7:45 AM EST Office Visit [facility] [address] [facility] [address] [place] [address] Irena Edouard MD [address] [place], [place] [id number] [facility] Start: 12-04-2023 End: 12-03-2024 Prostate specific Ag [Mass/volume] in Serum or Plasma Prostate Specific Antigen Lab Routine Nocturia Expected: 12/04/2023 (Approximate), Expires: 12/03/2024 [facility] Service Area Work Phone: Comment on above: Expected: 12/04/2023 (Approximate), Expires: 12/03/2024 Start: 12-04-2023 End: 12-04-2023 Patient encounter procedure 12/04/2023 7:45 AM EDT Office Visit [facility] [address] [place] [address] Irena Edouard MD [address] [place] [address] [facility] Start: 10-22-2023 COVID-19 Vaccine () COVID-19 Vaccine () [facility] Start: 10-22-2023 COVID-19 Vaccine () COVID-19 Vaccine () [facility] Start: 10-22-2023 Influenza vaccination Influenz a Vaccine (#1) [facility] Start: 08-13-2023 Yearly Adult Physical Yearly A dult Physical [facility] Start: 07-06-2023 End: 07-05-2024 CBC panel - Blood by Automated count [facility] Service Area Work Phone: Comment on above: Expected: 07/06/2023 (Approximate), Expires: 07/05/2024 Start: 07-06-2023 End: 07-05-2024 Comprehensive metabolic 2000 panel - Serum or Plasma [facility] Work Phone: Comment on above: Expected: 07/06/2023 (Approximate), Expires: 07/05/2024 Start: 07-06-2023 End: 07-05-2024 Lipid 1996 panel - Serum or Plasma [facility] Work Phone: Comment on above: Expected: 07/06/2023 (Approximate), Expires: 07/05/2024 Start: 10-21-2022 COVID-19 Vaccine () COVID-19 Vaccine () [facility] Start: 02-23-2021 COVID-19 Vaccine (3 - Booster for Leatha series) COVID-19 Vaccine (3 - Booster for Leatha series) [facility] Start: 03-19-2019 CT Abdomen and Pelvis with Contrast [facility] Work Phone: Start: 1996 DTaP/Tdap/Td Vaccines (1 - Tda p) DTaP/Tdap/Td Vaccines (1 - Tdap) [facility] Start: 1993 Hepatitis B Vaccines (1 of 3 - 19+ 3-dose series) Hepatitis B Vaccines (1 of 3 - 19+ 3-dose series) [facility] Start: 1992 Hepatitis C screening Hepatiti s C Screening [facility] Start: 1975 MMR Vaccines (1 of 1 - Standard series) MMR Vaccines (1 of 1 - Standard series) [facility] Start: 1974 Esophagogastroduodenoscopy EGD [facility] Start: 1974 Hepatitis B Vaccines (1 of 3 - 3-dose series) Hepatitis B Vaccines (1 of 3 - 3-dose series) [facility] Start: 1974 HIV screening HIV Screening [facility] Start: 1974 Screening for malign ant neoplasm of colon [facility] Start: 1974 Yearly Adult Physical Yearly A dult Physical [facility] End: 03-05-2024 Blood type and Indirect antibody screen panel - Blood Type And Screen Lab Timed As needed (Lab) until discontinued starting 03/05/2024 [facility] Service Area Work Phone: Comment on above: As needed (Lab) unti l discontinued starting 03/05/2024 End: 03-05-2024 Continuous Pulse oximetry, In Phase 1 Continuous Pulse oximetry, In Phase 1 Respiratory Care Routine Continuous until discontinued starting 03/05/2024 [facility] Work Phone: Comment on above: Continuous until dis continued starting 03/05/2024 End: 02-09-2024 MR Prostate [facility] Service Area Work Phone: Comment on above: Once for 1 Occurrenc es starting 02/09/2024 until 02/09/2024 [facility] referral [facility] [facility] Work Phone: Positron emission to mography with computed tomography [facility] End: 03-05-2024 Pulse oximetry, spot Pulse oximetry, spot Respiratory Care Routine Once for 1 Occurrences starting 03/05/2024 until 03/05/2024 [facility] Service Area Work Phone: Comment on above: Once for 1 Occurrenc es starting 03/05/2024 until 03/05/2024 Surgical pathology study Surgica l Pathology Exam Pathology and Cytology Timed Elevated PSA Release Upon Ordering for 1 Occurrences starting 03/05/2024 [facility] Work Phone: Comment on above: Release Upon Orderin g for 1 Occurrences starting 03/05/2024 [employer] [facility] Work Phone: NEGATED: Highlighted row has been ruled out! Planned Goals not documented [facility]: Immunizations Immunization Date Immunization Notes Care Provider Sid ortega 12-06-2022 influenza, injectabl e, quadrivalent, contains preservative Deacon Harper MD Work Phone: [facility] Work Phone: 12-06-2022 influenza virus vaccine, unspecified formulation Deacon Harper MD Work Phone: [facility] Work Phone: 01-15-2022 Seasonal, quadrivale nt, recombinant, injectable influenza vaccine, preservative free Deacon Harper MD Work Phone: [facility] Work Phone: 01-21-2021 Influenza, injectabl e, [place] Canine Kidney, preservative free, quadrivalent Deacon Harper MD Work Phone: [facility] Work Phone: 01-29-2020 influenza, seasonal, injectable Deacon Harper MD Work Phone: [facility] Work Phone: 11-02-2019 influenza, injectabl e, quadrivalent, preservative free Deacon Harper MD Work Phone: [facility] Work Phone: 11-14-2018 influenza, injectabl e, quadrivalent, contains preservative Deacon Harper MD Work Phone: [facility] Work Phone: 12-07-2017 influenza, injectabl e, quadrivalent, preservative free Deacon Harper MD Work Phone: [facility] Work Phone: 11-30-2016 influenza, seasonal, injectable Deacon Harper MD Work Phone: [facility] Work Phone: 11-11-2015 influenza, seasonal, injectable, preservative free Deacon Harper MD Work Phone: [facility] Work Phone: 11-26-2013 influenza, seasonal, injectable, preservative free Deacon Harper MD Work Phone: [facility] Work Phone: Payers Date Payer Category Payer Self-pay 2022 [facility] Care [id number] 2022 Unknown [id number] 2018 Unknown 2018 Unknown [id number] 1975 Unknown [id number] [id number]6 9 1974 Unknown [id number] 2.16.840.1.186540.3.579.2.124 5 1974 Unknown [id number] 2.16.840.1.694487.3.579.2.124 5 1974 Unknown [id number] 2.16.840.1.360239.3.579.2.124 5 1974 Unknown [id number] 2.16.840.1.183589.3.579.2.124 4 1974 Unknown [id number] 2.16.840.1.877094.3.579.2.124 4 1974 Unknown [id number] 2.16.840.1.385268.3.579.2.124 4 1974 Unknown [id number] 2.16.840.1.441767.3.579.2.124 4 1974 Unknown [id number] 2.16.840.1.722878.3.579.2.124 4 1974 Unknown [id number] 2.16.840.1.220220.3.579.2.124 4 1974 Unknown [id number] 2.16.840.1.882802.3.579.2.124 4 1974 Unknown [id number] 2.16.840.1.789948.3.579.2.124 3 1974 Unknown [id number] 2.840.1.703011.3.579.2.124 3 1974 Unknown [id number] 2.16.840.1.949551.3.579.2.124 3 1974 Unknown [id number] 2.16.840.1.380396.3.579.2.124 3 Unknown [facility] [id number] Unknown [id number] 2.840.1.941984.3.579.2.462 Unknown [id number] 2.16840.1.296987.3.579.2.462 Unknown [id number] 2.16840.1.822379.3.579.2.462 Unknown [id number] 2.16.840.1.826501.3.579.2.462 Unknown [id number] 2.16840.1.731413.3.579.2.462 Unknown [id number] 2.16840.1.015265.3.579.2.462 Unknown [id number] 2.16.840.1.043092.3.579.2.462 Unknown [id number] 2.16.840.1.705578.3.579.2.462 Unknown [id number] 2.16.840.1.207441.3.579.2.462 Unknown [id number] 2.16.840.1.417744.3.579.2.462 Unknown [id number] 2.16.840.1.557510.3.579.2.462 Unknown [id number] 2.16.840.1.198085.3.579.2.462 Unknown [id number] 2.16.840.1.416109.3.579.2.462 Unknown [id number] 2.16.840.1.281412.3.579.2.462 Unknown [id number] 2.16.840.1.024121.3.579.2.462 Social History Date Type Detail Facility Assertion Unknown if ever smoked [facility] Work Phone: Tobacco smoking consumption unknown [facility] Start: 08-11-2022 Tobacco smoking stat NHIS Never smoked tobacco [facility] History of tobacco use Passive smoker [facility] Work Phone: Start: 08-11-2022 Tobacco use and exposure User of smokeless tobacco [facility] Work Phone: History of tobacco use Chews Tobacco [facility] Work Phone: Start: 07-06-2023 End: 07-08-2024 Alcoholic beverage intake Current drinker of alcohol (finding) [facility] Work Phone: Start: 08-11-2022 End: 07-08-2024 History of Social function [facility] Work Phone: Start: 08-11-2022 End: 07-08-2024 Tobacco use panel [facility] Work Phone: Start: 1975 Sex assigned at Not on file [facility] Work Phone: Start: 08-01-2022 End: 07-08-2024 Exposure to SARS-CoV-2 (event) Not sure [facility] Start: 01-15-2024 End: 02-19-2024 Exposure to SARS-CoV-2 (event) Unable to assess [facility] Start: 03-22-2024 Tobacco smoking stat RUSTIS Ex-smoker (finding) [facility] Start: 05-08-2024 Sex Male (finding) [facility] Start: 1975 Sex Assigned At Male W [facility] Medical Equipment Procedure Code Equipment Code Equipment Origin al Text Equipment Identifier Dates Gold Markers, 1. 2mm, Soft Tissue, 20cm 17ga [place], 3-Pk, Strl - [id number] Start: 04-23-2024 Functional Status Date Assessment Result Facility NEGATED: Highlighted row Functional performance Functional status health issues are not documented [facility] Work Phone: Mental Status Date Assessment Result Facility NEGATED: Highlighted row Cognitive function [Interpretation] Cognitive status health issues are not documented [facility] Work Phone: Clinical Notes 08-11-2022 to 07-08-2024 Deacon Harper MD - 07/08/2024 8:00 AM EDTOp Note - Irena Edouard MD - 04/23/2024 11:44 AM ESTOp Note - Irena Edouard MD - 04/23/2024 11:44 AM ESTIrena Edouard MD - 04/23/2024 9:28 AM EST Note Date & Type Note Facility 07-08-2024 History of Presen t illness Narrative Subjective Patient ID: Basim Romero is a 49 y.o. male who presents for Annual Exam. HPI Completed 20 radtx for prostate cancer, on orgoveyx for 6 months. Now sees aamir. Has been on hormones for about a month and a half notes decreased libido some increased erectile difficulties. RBA tadalafil 5 mg daily reviewed Last colon on 2019. Tob-chew, alc-<2, no illicits. No reg exercise. Mother aw Dad agoe 56 pancreatic cancer. Sister aw 53 Shared decision making for cardiac calcium score to determine importance of treatment for hyperlipidemia Review of Systems General-no fatigue weight to within 10 pounds ENT no problems with vision swallowing Cardiac no chest pains palpitations change in exercise tolerance or capacity Pulmonary no cough shortness of breath GI no heartburn or abdominal pain Musculoskeletal no joint pains Objective BP 130/88 Pulse 92 Wt 91.2 kg (201 lb) SpO2 99% BMI 27.26 kg/m Physical Exam General: Alert, No acute distress. Appears stated age Eye: Pupils are equal, round and reactive to light, Extraocular movements are intact, Normal conjunctiva. Neck: Supple, Non-tender, No carotid bruit, No jugular venous distention, No lymphadenopathy, No thyromegaly. Respiratory: Lungs are clear to auscultation, Respirations are non-labored, Breath sounds are equal. Cardiovascular: Normal rate, Regular rhythm, No murmur. Gastrointestinal: Soft, Non-tender, No organomegaly. No solid or pulsatile mass Integumentary: Warm, Dry. No concerning lesions on exposed areas Neurologic: Alert, Oriented. Gross and fine motor intact, CN 2-12 intact Psychiatric: Cooperative, Appropriate mood & affect. Assessment/Plan Problem List Items Addressed This Visit ICD-10-CM Malignant neoplasm of prostate (Multi) C61 Relevant Medications tadalafil (Cialis) 5 mg tablet Other Visit Diagnoses Codes Wellness examination - Primary Z00.00 Relevant Orders CBC Comprehensive Metabolic Panel Lipid Panel Screening for cardiovascular condition Z13.[address] cardiac scoring wo IV contrast Mixed hyperlipidemia E78.2 Relevant Orders CBC Comprehensive Metabolic Panel Lipid Panel documented in this encounter [facility] Work Phone: 04-23-2024 Surgery Surgical operation note Insertion Fiducial Marker Prostate Operative Note Date: 04/23/2024 OR Location: [facility] OR Name: Basim Romero, : 1975, Age: 49 y.o., , Sex: male Diagnosis Pre-op Diagnosis * Prostate cancer (Multi) [C61] Post-op Diagnosis * Prostate cancer (Multi) [C61] Procedures Insertion Fiducial Marker Prostate 63269 - CO PLMT INTERSTITIAL DEV RADIAT TX PROSTATE 1/MULT Surgeons * Irena Edouard - Primary Resident/Fellow/Other Chute Puller: Surgeons and Role: * No surgeons found with a matching role * Staff: Dynamicist: Shavon Falcon Person: Wisam Anesthesia Staff: Anesthesiologist: Irena Conley MD PhD Procedure Summary Anesthesia: General ASA: I Estimated Blood Loss: 0mL Intra-op Medications: Administrations occurring from 1100 to 1125 on 04/23/24: Medication Name Total Dose lactated Ringer's infusion Cannot be calculated Anesthesia Record Intraprocedure I/O Totals None Implants: Implants Type Name Action Serial No. Implant GOLD MARKERS, 1.2MM, SOFT TISSUE, 20CM 17GA NEEDLES, 3-PK, STRL - [id number] Implanted Implant SYSTEM, SPACEOAR [place], HYDROGEL - [id number] Used, Not Implanted Indications: Basim Romero is an 49 y.o. male who is having surgery for Prostate cancer (Multi) [C61]. The patient was seen in the preoperative area. The risks, benefits, complications, treatment options, non-operative alternatives, expected recovery and outcomes were discussed with the patient. The possibilities of reaction to medication, pulmonary aspiration, injury to surrounding structures, bleeding, recurrent infection, the need for additional procedures, failure to diagnose a condition, and creating a complication requiring transfusion or operation were discussed with the patient. The patient concurred with the proposed plan, giving informed consent. The site of surgery was properly noted/marked if necessary per policy. The patient has been actively warmed in preoperative area. Anesthetic: General Estimated blood loss: Minimal. Complications: None. Pre-Op Diagnosis: Prostate cancer. Post-Op Diagnosis: Prostate cancer. Operation: ULTRASOUND GUIDED TRANSPERNINEAL PLACEMENT OF SPACEOAR AND FIDUCIAL MARKERS Physician: Javed Anesthesia: General INDICATIONS AND CONSENT: patient has a history of prostate cancer who now presents for treatment. After the risks, benefits, alternatives and indications for the procedure were explained, he consented. PROCEDURE: The subject was positioned in the dorsal lithotomy position. A bilateral pudendal nerve block was performed using standard technique (1% lidocaine solution) The needle was advanced to the mid perineum region and an adequate dose of Lidocaine was injected. Once this area became anesthetized (~5 min), the needle was advanced until it was proximal to the pudendal nerve, and an additional dose of Lidocaine was injected. Once the area was completely anesthetized (~5 min), placement of SpaceOAR commence. Intra-Service Prior to needle insertion, an axial measurement of the space between the prostate (mid gland) and rectum was noted. SpaceOAR hydrogel was prepared as described in the mortician investigator s Instructions For Use while the patient was prepped. With the subject maintained in the dorsal lithotomy position, the transrectal ultrasound (TRUS) probe was positioned to enable visual guidance of the needle into the space between the prostate and the rectum. Under transrectal ultrasound guidance, the 15 cm 18G needle was inserted through the rectourethralis muscle and the needle tip advanced into the perirectal fat inferior to the prostate all by using a transperineal approach and with side-fire transrectal ultrasound guidance. The needle position was confirmed in both sagittal and axial harley. Saline was used to dissect the space between the Denonvilliers fascia and anterior rectal wall ( hydrodissection ). A space was created with hydrodissection. With the needle tip at mid gland, the axial field was viewed to confirm the needle was not in the rectal wall (movement of the needle tip without corresponding movement of the rectal wall will confirm perirectal placement). While maintaining the desired position, aspiration was done to ensure that the needle was not in vascular space. The assembled SpaceOAR delivery system was then attached to the 18G needle. Under ultrasound guidance (sagittal plane), a smooth, continuous injection technique was used to dispense the SpaceOAR hydrogel into the space between the prostate and rectum (Denonvilliers fascia and the anterior rectal wall). The entire syringe contents (10 mL total) were injected without stopping. Optimal visualization of the needle during hydrogel administration was maintained at all times. An axial measurement of the space between the prostate (mid gland) and rectum immediately post-SpaceOAR injection was noted. No suspected penetration or compromise of the rectal wall occurred. Post-Service He will continue ciprofloxacin 500 mg twice daily until gone and follow-up next week for his pre IMRT imaging for planning with Radiation Oncologist The patient tolerated the procedure well. There were no complications. Attending Attestation: I was present and scrubbed for the entire procedure. Irena Edouard [facility] Work Phone: 04-23-2024 Miscellaneous Notes Insertion Fiducial Marker Prostate Operative Note Date: 04/23/2024 OR Location: [facility] OR Name: Basim Romero, : 1975, Age: 49 y.o., , Sex: male Diagnosis Pre-op Diagnosis * Prostate cancer (Multi) [C61] Post-op Diagnosis * Prostate cancer (Multi) [C61] Procedures Insertion Fiducial Marker Prostate 17204 - CO PLMT INTERSTITIAL DEV RADIAT TX PROSTATE 1/MULT Surgeons * Irena Edouard - Primary Resident/Fellow/Other Chute Puller: Surgeons and Role: * No surgeons found with a matching role * Staff: Dynamicist: Shavon Falcon Person: Wisam Anesthesia Staff: Anesthesiologist: Irena Conley MD PhD Procedure Summary Anesthesia: General ASA: I Estimated Blood Loss: 0mL Intra-op Medications: Administrations occurring from 1100 to 1125 on 04/23/24: Medication Name Total Dose lactated Ringer's infusion Cannot be calculated Anesthesia Record Intraprocedure I/O Totals None Implants: Implants Type Name Action Serial No. Implant GOLD MARKERS, 1.2MM, SOFT TISSUE, 20CM 17GA NEEDLES, 3-PK, STRL - [id number] Implanted Implant SYSTEM, SPACEOAR [place], HYDROGEL - [id number] Used, Not Implanted Indications: Basim Romero is an 49 y.o. male who is having surgery for Prostate cancer (Multi) [C61]. The patient was seen in the preoperative area. The risks, benefits, complications, treatment options, non-operative alternatives, expected recovery and outcomes were discussed with the patient. The possibilities of reaction to medication, pulmonary aspiration, injury to surrounding structures, bleeding, recurrent infection, the need for additional procedures, failure to diagnose a condition, and creating a complication requiring transfusion or operation were discussed with the patient. The patient concurred with the proposed plan, giving informed consent. The site of surgery was properly noted/marked if necessary per policy. The patient has been actively warmed in preoperative area. Anesthetic: General Estimated blood loss: Minimal. Complications: None. Pre-Op Diagnosis: Prostate cancer. Post-Op Diagnosis: Prostate cancer. Operation: ULTRASOUND GUIDED TRANSPERNINEAL PLACEMENT OF SPACEOAR AND FIDUCIAL MARKERS Physician: Javed Anesthesia: General INDICATIONS AND CONSENT: patient has a history of prostate cancer who now presents for treatment. After the risks, benefits, alternatives and indications for the procedure were explained, he consented. PROCEDURE: The subject was positioned in the dorsal lithotomy position. A bilateral pudendal nerve block was performed using standard technique (1% lidocaine solution) The needle was advanced to the mid perineum region and an adequate dose of Lidocaine was injected. Once this area became anesthetized (~5 min), the needle was advanced until it was proximal to the pudendal nerve, and an additional dose of Lidocaine was injected. Once the area was completely anesthetized (~5 min), placement of SpaceOAR commence. Intra-Service Prior to needle insertion, an axial measurement of the space between the prostate (mid gland) and rectum was noted. SpaceOAR hydrogel was prepared as described in the mortician investigator s Instructions For Use while the patient was prepped. With the subject maintained in the dorsal lithotomy position, the transrectal ultrasound (TRUS) probe was positioned to enable visual guidance of the needle into the space between the prostate and the rectum. Under transrectal ultrasound guidance, the 15 cm 18G needle was inserted through the rectourethralis muscle and the needle tip advanced into the perirectal fat inferior to the prostate all by using a transperineal approach and with side-fire transrectal ultrasound guidance. The needle position was confirmed in both sagittal and axial harley. Saline was used to dissect the space between the Denonvilliers fascia and anterior rectal wall ( hydrodissection ). A space was created with hydrodissection. With the needle tip at mid gland, the axial field was viewed to confirm the needle was not in the rectal wall (movement of the needle tip without corresponding movement of the rectal wall will confirm perirectal placement). While maintaining the desired position, aspiration was done to ensure that the needle was not in vascular space. The assembled SpaceOAR delivery system was then attached to the 18G needle. Under ultrasound guidance (sagittal plane), a smooth, continuous injection technique was used to dispense the SpaceOAR hydrogel into the space between the prostate and rectum (Denonvilliers fascia and the anterior rectal wall). The entire syringe contents (10 mL total) were injected without stopping. Optimal visualization of the needle during hydrogel administration was maintained at all times. An axial measurement of the space between the prostate (mid gland) and rectum immediately post-SpaceOAR injection was noted. No suspected penetration or compromise of the rectal wall occurred. Post-Service He will continue ciprofloxacin 500 mg twice daily until gone and follow-up next week for his pre IMRT imaging for planning with Radiation Oncologist The patient tolerated the procedure well. There were no complications. Attending Attestation: I was present and scrubbed for the entire procedure. Irena Edouard No outpatient medications have been marked as taking for the 04/23/24 encounter (Hospital Encounter). NPO Instructions: Do not eat any food after midnight the night before your surgery/procedure. You may have clear liquids until TWO hours before surgery/procedure. This includes water, black tea/coffee, (no milk or cream) apple juice and electrolyte drinks (Gatorade). 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 male presenting with prostate cancer. Past Medical History Past Medical History: Diagnosis Date BPH (benign prostatic hyperplasia) Surgical History Past Surgical History: Procedure Laterality Date ANAL SPHINCTEROTOMY COLONOSCOPY 2020 OTHER SURGICAL HISTORY 03/07/2019 Appendectomy PROSTATE BIOPSY Social History He reports that he has never smoked. He has been exposed to tobacco smoke. His smokeless tobacco use includes chew. He reports current alcohol use. Drug use questions deferred to the physician. Family History Family History Problem Relation Name Age of Onset Other (CVA) Father Pancreatic cancer Father Allergies Patient has no known allergies. Review of Systems Constitutional: Negative for chills and fever. HENT: Negative. Eyes: Negative. Respiratory: Negative for cough and shortness of breath. Cardiovascular: Negative for chest pain and leg swelling. Gastrointestinal: Negative for nausea. Endocrine: Negative. Genitourinary: Negative for difficulty urinating. Negative except for documented in HPI Allergic/Immunologic: Negative. Neurological: Alert & oriented X 3 Hematological: Denies blood thinners Psychiatric/Behavioral: Negative. Physical Exam Vitals and nursing note reviewed. Pulmonary: Effort: Pulmonary effort is normal. Abdominal: Palpations: Abdomen is soft. Tenderness: There is no abdominal tenderness. Genitourinary: Comments: Kidneys non palpable bilaterally Bladder non palpable or tender Neurological: Mental Status: He is alert. Last Recorded Vitals Weight 92.5 kg (204 lb). Assessment/Plan Assessment & Plan Prostate cancer (Multi) Irena Edouard MD [facility] Work Phone: 04-23-2024 History and physical note History Of Present Illness Basim Romero is a 49 y.o. male presenting with prostate cancer. Past Medical History Past Medical History: Diagnosis Date BPH (benign prostatic hyperplasia) Surgical History Past Surgical History: Procedure Laterality Date ANAL SPHINCTEROTOMY COLONOSCOPY 2020 OTHER SURGICAL HISTORY 03/07/2019 Appendectomy PROSTATE BIOPSY Social History He reports that he has never smoked. He has been exposed to tobacco smoke. His smokeless tobacco use includes chew. He reports current alcohol use. Drug use questions deferred to the physician. Family History Family History Problem Relation Name Age of Onset Other (CVA) Father Pancreatic cancer Father Allergies Patient has no known allergies. Review of Systems Constitutional: Negative for chills and fever. HENT: Negative. Eyes: Negative. Respiratory: Negative for cough and shortness of breath. Cardiovascular: Negative for chest pain and leg swelling. Gastrointestinal: Negative for nausea. Endocrine: Negative. Genitourinary: Negative for difficulty urinating. Negative except for documented in HPI Allergic/Immunologic: Negative. Neurological: Alert & oriented X 3 Hematological: Denies blood thinners Psychiatric/Behavioral: Negative. Physical Exam Vitals and nursing note reviewed. Pulmonary: Effort: Pulmonary effort is normal. Abdominal: Palpations: Abdomen is soft. Tenderness: There is no abdominal tenderness. Genitourinary: Comments: Kidneys non palpable bilaterally Bladder non palpable or tender Neurological: Mental Status: He is alert. Last Recorded Vitals Weight 92.5 kg (204 lb). Assessment/Plan Assessment & Plan Prostate cancer (Multi) Irena Edouard MD documented in this encounter [facility] Work Phone: 04-16-2024 Instructions Formatting of th is note is different from the original. No outpatient medications have been marked as taking for the 04/23/24 encounter (Hospital Encounter). NPO Instructions: Do not eat any food after midnight the night before your surgery/procedure. You may have clear liquids until TWO hours before surgery/procedure. This includes water, black tea/coffee, (no milk or cream) apple juice and electrolyte drinks (Gatorade). 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, will receive call day before surgery with arrival time [facility] 03-22-2024 Evaluation note Diagnosis Onset Date Resolution Cancer of prostate with intermediate recurrence risk (stage T2b-c or Gleaso acute March 22 10:14am [facility] Work Phone: [phone] 711-395901-31-2025 Evaluation note* Diagnosis Onset Date Resolution Status Admit Date Cancer of prostate with intermediate recurrence risk (stage T2b-c or Gleaso acute February 222024 10:14am Cancer of prostate with intermediate recurrence risk (stage T2b-c or Gleaso acute April 7:47am Cancer of prostate with intermediate recurrence risk (stage T2b-c or Gleaso acute May 7:50am Cancer of prostate with intermediate recurrence risk (stage T2b-c or Gleaso acute May 7:46am Cancer of prostate with intermediate recurrence risk (stage T2b-c or Gleaso acute May 8:14am Cancer of prostate with intermediate recurrence risk (stage T2b-c or Gleaso acute May 8:03am Cancer of prostate with intermediate recurrence risk (stage T2b-c or Gleaso acute May 7:50am BPH without obstruction/lowe r urinary tract symptoms acute July 19, 2024 8:03am Cancer of prostate with intermediate recurrence risk (stage T2b-c or Gleaso acute July 19, 2024 8:03am Elevated PSA acute July 19 8:03am Nocturia acute July 19, 2024 8:03am Prostatitis acute July 19 8:03am [facility] Work Phone: [phone] History of Present illness Narrative* Irena Edouard MD - 03/20/2024 9:00 AM EST Virtual or Telephone Consent An interactive audio and video telecommunication system which permits real time communications between the patient (at the originating site) and provider (at the distant site) was utilized to providethis telehealth service. Verbal consent was requested and obtained from Basim Romero on this date, 03/20/24 for a telehealth visit. Subjective Patient ID: Basim Romero is a 48 y.o. male. HPI Patient is here for prostate MRI fusion bx results. Path showed prostate cancer. Yung 7. Most recent PSA was 12.13 on 01/13. He has been having prostatitis flare up. Sx have improved with Antibiotics and NSAIDS... Normal UA done on 11/14/23. Chronic LUT'S sx are mild and stable. Denies urgency and frequency. Denies dysuria. Denies hematuria. Nocturia x1. No medication for LUT'S. ED is not an issue and painful ejaculation has improved. Review of Systems Constitutional: Negative for chills and fever. HENT: Negative. Eyes: Negative. Respiratory: Negative for cough and shortness of breath. Cardiovascular: Negative for chest pain and leg swelling. Gastrointestinal: Negative for nausea. Endocrine: Negative. Genitourinary: Negative for difficulty urinating. Negative except for documented in HPI Allergic/Immunologic: Negative. Neurological: Alert & oriented X 3 Hematological: Denies blood thinners Psychiatric/Behavioral: Negative. Objective Physical Exam No PE done given the virtual nature of visit. Assessment/Plan There are no diagnoses linked to this encounter. All available PSA values reviewed, Options discussed. Questions answered. Path report reviewed. Tx Options discussed. Pros/cons of tx options reviewed. Questions answered Patient leaning towards VRT-Will refer to Dr Jessica Discussed PET scan VS CT/Bone scan Diet changes for prostate health discussed and educational information given. Pros/Cons of prostatehealth supplements discussed. Treatment options for LUTS reviewed-not bothersome Discussed timed voiding. Discussed fluid and caffeine intake Treatment options for ED reviewed-not an issue F/U 1 month virtual [facility]: [phone] Note* Op Note - Irena Edouard MD - 03/05/2024 11:00 AM EST BIOPSY, PROSTATE, WITH IMAGING GUIDANCE, ULTRASOUND, PROSTATE, ENDORECTAL, Ultrasound Guidance for Prostate Fusion Bx Operative Note Date: 03/05/2024 OR Location: [facility] OR Name: Basim Romero, : 1975, Age: 48 y.o., , Sex: male Diagnosis Pre-op Diagnosis * Elevated PSA [R97.20] Post-op Diagnosis * Elevated PSA [R97.20] Procedures BIOPSY, PROSTATE, WITH IMAGING GUIDANCE 20413 - CO PROSTATE NEEDLE BIOPSY ANY APPROACH ULTRASOUND, PROSTATE, ENDORECTAL 57724 - CHG US TRANSRECTAL [place] [address] - CHG US GUIDANCE NEEDLE PLACEMENT IMG S&I Surgeons * Irena Edouard - Primary Resident/Fellow/Other Chute Puller: Surgeons and Role: * No surgeons found with a matching role * Staff: Dynamicist: Oneyda Falcon Person: Haritha Anesthesia Staff: Anesthesiologist: Deacon Martinez MD Procedure Summary Anesthesia: Anesthesia type not filed in the log. ASA: II Estimated Blood Loss: 0mL Intra-op Medications: Administrations occurring from 1030 to 1045 on 03/05/24: * No intraprocedure medications in log * Anesthesia Record Intraprocedure I/O Totals None Specimen: ID Type Source Tests Collected by Time 1 : PROSTATE NEEDLE BIOPSY RIGHT Tissue PROSTATE NEEDLE BIOPSY RIGHT SURGICAL PATHOLOGY EXAM Irena Álvarez MD 03/05/2024 1104 2 : PROSTATE NEEDLE BIOPSY LEFT Tissue PROSTATE NEEDLE BIOPSY LEFT SURGICAL PATHOLOGY EXAM Irena Edouard MD 03/05/2024 1104 3 : AREA OF INTEREST#1 Tissue PROSTATE BIOPSY TARGETED SOREN SURGICAL PATHOLOGY EXAM Irena Edouard MD 03/05/2024 1104 Drains and/or Catheters: * None in log * Tourniquet Times: Indications: Basim Romero is an 48 y.o. male who is having surgery for Elevated PSA [R97.20]. The patient was seen in the preoperative area. The risks, benefits, complications, treatment options, non-operative alternatives, expected recovery and outcomes were discussed with the patient. The possibilities of reaction to medication, pulmonary aspiration, injury to surrounding structures, bleeding, recurrent infection, the need for additional procedures, failure to diagnose a condition, and creating a complication requiring transfusion or operation were discussed with the patient. The patient concurred with the proposed plan, giving informed consent. The site of surgery was properly noted/marked if necessary per policy. The patient has been actively warmed in preoperative area. Pre Op dx: Elevated PSA and Abnormal MRI of the prostate Post Op Dx: SAME Procedure: MRI Guided Fusion Bx of the prostate Physician: JAVED Anesthesia: MAC Estimated Blood Loss: Minimal Complications: NONE Indications and Consent: Patient present for prostate Biopsy of lesion found on MRI. After the risks,, benefits, and indications were explained he consented to the procedure. PROCEDURE: After adequate sedation was obtained the ultrasound probe was inserted into the rectum. An ultrasound sweep of the prostate was performed. These images were then fused with the previously obtained MRI images. The lesion(s) were identified. Multiple targeted biopsies were obtained . I also performed standard Sextant biopsies of the right and left lobe of the prostate. The patient tolerated the procedure well. Attending Attestation: I was present and scrubbed for the entire procedure. Irena Edouard [facility] Work Phone: [phone] Miscellaneous Notes* Op Note - Irena Edouard MD - 03/05/2024 11:00 AM EST BIOPSY, PROSTATE, WITH IMAGING GUIDANCE, ULTRASOUND, PROSTATE, ENDORECTAL, Ultrasound Guidance for Prostate Fusion Bx Operative Note Date: 03/05/2024 OR Location: [facility] OR Name: aBsim Romero, : 1975, Age: 48 y.o., , Sex: male Diagnosis Pre-op Diagnosis * Elevated PSA [R97.20] Post-op Diagnosis * Elevated PSA [R97.20] Procedures BIOPSY, PROSTATE, WITH IMAGING GUIDANCE 05481 - CO PROSTATE NEEDLE BIOPSY ANY APPROACH ULTRASOUND, PROSTATE, ENDORECTAL 98497 - CHG US TRANSRECTAL [place] [address] - CHG US GUIDANCE NEEDLE PLACEMENT IMG S&I Surgeons * Irena Edouard - Primary Resident/Fellow/Other Chute Puller: Surgeons and Role: * No surgeons found with a matching role * Staff: Dynamicist: Oneyda Falcon Person: Haritha Anesthesia Staff: Anesthesiologist: Deacon Martinez MD Procedure Summary Anesthesia: Anesthesia type not filed in the log. ASA: II Estimated Blood Loss: 0mL Intra-op Medications: Administrations occurring from 1030 to 1045 on 03/05/24: * No intraprocedure medications in log * Anesthesia Record Intraprocedure I/O Totals None Specimen: ID Type Source Tests Collected by Time 1 : PROSTATE NEEDLE BIOPSY RIGHT Tissue PROSTATE NEEDLE BIOPSY RIGHT SURGICAL PATHOLOGY EXAM Irena Álvarez MD 03/05/2024 1104 2 : PROSTATE NEEDLE BIOPSY LEFT Tissue PROSTATE NEEDLE BIOPSY LEFT SURGICAL PATHOLOGY EXAM Irena Edouard MD 03/05/2024 1104 3 : AREA OF INTEREST#1 Tissue PROSTATE BIOPSY TARGETED SOREN SURGICAL PATHOLOGY EXAM Irena Edouard MD 03/05/2024 1104 Drains and/or Catheters: * None in log * Tourniquet Times: Indications: Basim Romero is an 48 y.o. male who is having surgery for Elevated PSA [R97.20]. The patient was seen in the preoperative area. The risks, benefits, complications, treatment options, non-operative alternatives, expected recovery and outcomes were discussed with the patient. The possibilities of reaction to medication, pulmonary aspiration, injury to surrounding structures, bleeding, recurrent infection, the need for additional procedures, failure to diagnose a condition, and creating a complication requiring transfusion or operation were discussed with the patient. The patient concurred with the proposed plan, giving informed consent. The site of surgery was properly noted/marked if necessary per policy. The patient has been actively warmed in preoperative area. Pre Op dx: Elevated PSA and Abnormal MRI of the prostate Post Op Dx: SAME Procedure: MRI Guided Fusion Bx of the prostate Physician: JAVED Anesthesia: MAC Estimated Blood Loss: Minimal Complications: NONE Indications and Consent: Patient present for prostate Biopsy of lesion found on MRI. After the risks,, benefits, and indications were explained he consented to the procedure. PROCEDURE: After adequate sedation was obtained the ultrasound probe was inserted into the rectum. An ultrasound sweep of the prostate was performed. These images were then fused with the previously obtained MRI images. The lesion(s) were identified. Multiple targeted biopsies were obtained . I also performed standard Sextant biopsies of the right and left lobe of the prostate. The patient tolerated the procedure well. Attending Attestation: I was present and scrubbed for the entire procedure. Irena Edouard * Preprocedure Instructions - Karma Duran RN - 02/29/2024 11:33 AM EST No outpatient medications have been marked as taking for the 03/05/24 encounter (Hospital Encounter). NPO Instructions: Do not eat any food after midnight the night before your surgery/procedure. You may have clear liquids until TWO hours before surgery/procedure. This includes water, black tea/coffee, (no milk or cream) apple juice and electrolyte drinks (Gatorade). 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 male presenting with elevated PSA. Past Medical History Past Medical History: Diagnosis Date BPH (benign prostatic hyperplasia) Surgical History Past Surgical History: Procedure Laterality Date ANAL SPHINCTEROTOMY COLONOSCOPY 2020 OTHER SURGICAL HISTORY 03/07/2019 Appendectomy Social History He reports that he has never smoked. He has been exposed to tobacco smoke. His smokeless tobacco use includes chew. He reports current alcohol use. Drug use questions deferred to the physician. Family History Family History Problem Relation Name Age of Onset Other (CVA) Father Pancreatic cancer Father Allergies Patient has no known allergies. Review of Systems Constitutional: Negative for chills and fever. HENT: Negative. Eyes: Negative. Respiratory: Negative for cough and shortness of breath. Cardiovascular: Negative for chest pain and leg swelling. Gastrointestinal: Negative for nausea. Endocrine: Negative. Genitourinary: Negative for difficulty urinating. Negative except for documented in HPI Allergic/Immunologic: Negative. Neurological: Alert & oriented X 3 Hematological: Denies blood thinners Psychiatric/Behavioral: Negative. Physical Exam Vitals and nursing note reviewed. Pulmonary: Effort: Pulmonary effort is normal. Abdominal: Palpations: Abdomen is soft. Tenderness: There is no abdominal tenderness. Genitourinary: Comments: Kidneys non palpable bilaterally Bladder non palpable or tender Neurological: Mental Status: He is alert. Last Recorded Vitals Weight 90.7 kg (200 lb). Assessment/Plan Assessment & Plan Elevated PSA Irena Edouard MD [facility] Work Phone: [phone] 459-861401-14-2025 History and physical note* Irena Edouard MD - 03/05/2024 8:57 AM EST History Of Present Illness Basim Romero is a 48 y.o. male presenting with elevated PSA. Past Medical History Past Medical History: Diagnosis Date BPH (benign prostatic hyperplasia) Surgical History Past Surgical History: Procedure Laterality Date ANAL SPHINCTEROTOMY COLONOSCOPY 2020 OTHER SURGICAL HISTORY 03/07/2019 Appendectomy Social History He reports that he has never smoked. He has been exposed to tobacco smoke. His smokeless tobacco use includes chew. He reports current alcohol use. Drug use questions deferred to the physician. Family History Family History Problem Relation Name Age of Onset Other (CVA) Father Pancreatic cancer Father Allergies Patient has no known allergies. Review of Systems Constitutional: Negative for chills and fever. HENT: Negative. Eyes: Negative. Respiratory: Negative for cough and shortness of breath. Cardiovascular: Negative for chest pain and leg swelling. Gastrointestinal: Negative for nausea. Endocrine: Negative. Genitourinary: Negative for difficulty urinating. Negative except for documented in HPI Allergic/Immunologic: Negative. Neurological: Alert & oriented X 3 Hematological: Denies blood thinners Psychiatric/Behavioral: Negative. Physical Exam Vitals and nursing note reviewed. Pulmonary: Effort: Pulmonary effort is normal. Abdominal: Palpations: Abdomen is soft. Tenderness: There is no abdominal tenderness. Genitourinary: Comments: Kidneys non palpable bilaterally Bladder non palpable or tender Neurological: Mental Status: He is alert. Last Recorded Vitals Weight 90.7 kg (200 lb). Assessment/Plan Assessment & Plan Elevated PSA Irena Edouard MD [facility]: [phone] Note* Preprocedure Instructions - Karma Duran RN - 02/29/2024 11:33 AM EST No outpatient medications have been marked as taking for the 03/05/24 encounter (Hospital Encounter). NPO Instructions: Do not eat any food after midnight the night before your surgery/procedure. You may have clear liquids until TWO hours before surgery/procedure. This includes water, black tea/coffee, (no milk or cream) apple juice and electrolyte drinks (Gatorade). 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 Verbal consent was requested and obtained from Basim Romero on this date, 01/25/24 for a telehealth visit. Subjective Patient ID: Basim Romero is a 48 y.o. male. HPI Patient is here for lab results. Most recent PSA was 12.13 on 01/13. He has been having prostatitisflare up. Sx have improved with Antibiotics and NSAIDS... Normal UA done on 11/14/23. Chronic LUT'S sx are mild and stable. Denies urgency and frequency. Denies dysuria. Denies hematuria. Nocturia x1.No medication for LUT'S. ED is not an issue and painful ejaculation has improved. Review of Systems Constitutional: Negative for chills and fever. HENT: Negative. Eyes: Negative. Respiratory: Negative for cough and shortness of breath. Cardiovascular: Negative for chest pain and leg swelling. Gastrointestinal: Negative for nausea. Endocrine: Negative. Genitourinary: Negative for difficulty urinating. Negative except for documented in HPI Allergic/Immunologic: Negative. Neurological: Alert & oriented X 3 Hematological: Denies blood thinners Psychiatric/Behavioral: Negative. Objective Physical Exam No PE done given the virtual nature of visit. Assessment/Plan Diagnoses and all orders for this visit: Prostatitis, unspecified prostatitis type BPH without obstruction/lower urinary tract symptoms Elevated PSA All available PSA values reviewed, Options discussed. Questions answered. MRI ordered Discussed Prostatitis and effect on PSA Diet changes for prostate health discussed and educational information given. Pros/Cons of prostatehealth supplements discussed. Treatment options for LUTS reviewed-Not bothersome Discussed timed voiding. Discussed fluid and caffeine intake Treatment options for ED reviewed-not an issue Lifestyle change to help prevent UTIs discussed. Encouraged fluid intake. pros/cons of Testosterone replacement reviewed. Replacement options discussed. Questions answered. Available levels reviewed. T level ordered F/U with prostate MRI and then plan repeat PSA and T level in 3 months. documented in this [facility] Work Phone: 1([phone] 236-122211-20-2024 History of Present illness Narrative* Irena Edouard MD - 01/10/2024 7:45 AM EST Subjective Patient ID: Basim Romero is a 48 y.o. male. HPI Patient is here for 6 week follow up. Hew as last seen for penile pain when ejaculating. . He was given Bactrim and NSAIDS. He states this did clear sx prostatitis . . Normal UA done on 11/14/23. Chronic LUT'S sx are mild and stable. Denies urgency and frequency. Denies dysuria. Denies hematuria. Nocturia x1. No medication for LUT'S. . No recent PSA has been done. Review of Systems Constitutional: Negative for chills and fever. HENT: Negative. Eyes: Negative. Respiratory: Negative for cough and shortness of breath. Cardiovascular: Negative for chest pain and leg swelling. Gastrointestinal: Negative for nausea. Endocrine: Negative. Genitourinary: Negative for difficulty urinating. Negative except for documented in HPI Allergic/Immunologic: Negative. Neurological: Alert & oriented X 3 Hematological: Denies blood thinners Psychiatric/Behavioral: Negative. Objective Physical Exam Vitals and nursing note reviewed. Pulmonary: Effort: Pulmonary effort is normal. Abdominal: Palpations: Abdomen is soft. Tenderness: There is no abdominal tenderness. Genitourinary: Comments: Kidneys non palpable bilaterally Bladder non palpable or tender Neurological: Mental Status: He is alert. Assessment/Plan Diagnoses and all orders for this visit: Prostatitis, unspecified prostatitis type Nocturia BPH without obstruction/lower urinary tract symptoms All available PSA values reviewed, Options discussed. Questions answered. PSA ordered Diet changes for prostate health discussed and educational information given. Pros/Cons of prostatehealth supplements discussed. Treatment options for LUTS reviewed-Not bothersome Discussed timed voiding. Discussed fluid and caffeine intake Treatment options for ED reviewed-Not an issue Lifestyle change to help prevent UTIs discussed. Encouraged fluid intake. pros/cons of Testosterone replacement reviewed. Replacement options discussed. Questions answered. Available levels reviewed. T level ordered Bactrim Rx-Riche Carrie Ceron given for SELF start Sx of prostatitis F/U Virtual with PSA and T level documented in this [facility] Work Phone: [phone]) 579-761110-14-2024 History of Present illness Narrative* Irena Edouard MD - 12/04/2023 7:45 AM EDT Subjective Patient ID: Basim Romero is a 48 y.o. male. HPI Patient is here to establish for testicular and penile pain only at ejaculation. He describes the pain at the end of the penis. It is every time with ejaculation. This started a couple of months ago.He was treated with doxycycline and states this was not helpful. He has not had and change in Urinary Sx. Normal UA done on 11/14/23. Chronic LUT'S sx are mild and stable. Denies urgency and frequency. Denies dysuria. Denies hematuria. Nocturia x1. No medication for LUT'S. No hx of kidney stones. Review of Systems Constitutional: Negative for chills and fever. HENT: Negative. Eyes: Negative. Respiratory: Negative for cough and shortness of breath. Cardiovascular: Negative for chest pain and leg swelling. Gastrointestinal: Negative for nausea. Endocrine: Negative. Genitourinary: Negative for difficulty urinating. Negative except for documented in HPI Allergic/Immunologic: Negative. Neurological: Alert & oriented X 3 Hematological: Denies blood thinners Psychiatric/Behavioral: Negative. Objective Physical Exam Vitals and nursing note reviewed. Constitutional: General: He is not in acute distress. Appearance: Normal appearance. Pulmonary: Effort: Pulmonary effort is normal. Abdominal: Tenderness: There is no abdominal tenderness. Genitourinary: Comments: Kidneys non palpable bilaterally Bladder non palpable or tender Scrotum no mass, No hydrocele Epididymis- No spermatocele. Non Tender. Testicles: No mass. WNL Urethra: No discharge Penis within normal limits... No lesions. circumcised Prostate - symmetric, no nodules. BENIGN. Mildly tender Seminal Vesicals: No mass. Sphincter tone: normal Neurological: Mental Status: He is alert. Assessment/Plan Diagnoses and all orders for this visit: Painful ejaculation BPH without obstruction/lower urinary tract symptoms Prostatitis, unspecified prostatitis type All available PSA values reviewed, Options discussed. Questions answered. PSA ordered Diet changes for prostate health discussed and educational information given. Pros/Cons of prostatehealth supplements discussed. Treatment options for LUTS reviewed Discussed timed voiding. Discussed fluid and caffeine intake Treatment options for ED reviewed. Lifestyle change to help prevent UTIs discussed. Encouraged fluid intake. Bactrim BID x 10 days then 1 po every day x 21 days NSAIDS RX GIVEN Will consider cysto if Sx not resolved F/U 6 weeks [facility]: [phone] History of Present illness Narrative* Deacon Harper MD - 07/06/2023 8:20 AM EDT Subjective Patient ID: Basim Romero is a 48 y.o. male who presents for Annual Exam. HPI Since the last office visit there have been no interval operations, hospitalizations, important illnesses or injuries. No meds nkda Tob+chew, alc<2/d. Illicits-0 Father dec age 56 woth pancreatic ca Mother aw 1sib aw 2 aw Review of Systems General-no fatigue weight to within 10 pounds ENT no problems with vision swallowing Cardiac no chest pains palpitations change in exercise tolerance or capacity Pulmonary no cough shortness of breath GI no heartburn or abdominal pain Musculoskeletal no joint pains Objective BP 110/72 Pulse 70 Ht 1.854 m (6' 1) Wt 92.4 kg (203 lb 9.6 oz) SpO2 97% BMI 26.86 kg/m Physical Exam General: Alert, No acute distress. Appears stated age Eye: Pupils are equal, round and reactive to light, Extraocular movements are intact, Normal conjunctiva. Neck: Supple, Non-tender, No carotid bruit, No jugular venous distention, No lymphadenopathy, No thyromegaly. Respiratory: Lungs are clear to auscultation, Respirations are non-labored, Breath sounds are equal. Cardiovascular: Normal rate, Regular rhythm, No murmur. Gastrointestinal: Soft, Non-tender, No organomegaly. No solid or pulsatile mass Integumentary: Warm, Dry. No concerning lesions on exposed areas Neurologic: Alert, Oriented. Gross and fine motor intact, CN 2-12 intact Psychiatric: Cooperative, Appropriate mood & affect. Assessment/Plan Problem List Items Addressed This Visit None Visit Diagnoses Codes Wellness examination - Primary Z00.00 Relevant Orders CBC Comprehensive Metabolic Panel Lipid Panel Follow Up In Primary Care - Established documented in this [facility] Work Phone: [phone] 520-846706-22-2023 History of Present illness Narrative* Deacon Harper MD - 08/11/2022 8:40 AM EDT Subjective Patient ID: Basim Romero is a 47 y.o. male who presents for Annual Exam. HPI Op-appy, frx foot, anal fissure\ colon 2019 Hosp-0 Meds-0 Nkda Dad dec pancr ca 1 yr post whiple Mom aw 1 sib aw 2 aw children Tob-chew Alc-<2/de Illicit-0 No reg exercise Juv probation Review of Systems General-no fatigue weight to within 10 pounds ENT no problems with vision swallowing Cardiac no chest pains palpitations change in exercise tolerance or capacity Pulmonary no cough shortness of breath GI no heartburn or abdominal pain Musculoskeletal no joint pains Objective BP 100/70 Pulse 82 Ht 1.854 m (6' 1) Wt 89.9 kg (198 lb 1.6 oz) SpO2 98% BMI 26.14 kg/m Physical Exam General: Alert, No acute distress. Appears stated age Eye: Pupils are equal, round and reactive to light, Extraocular movements are intact, Normal conjunctiva. Neck: Supple, Non-tender, No carotid bruit, No jugular venous distention, No lymphadenopathy, No thyromegaly. Respiratory: Lungs are clear to auscultation, Respirations are non-labored, Breath sounds are equal. Cardiovascular: Normal rate, Regular rhythm, No murmur. Gastrointestinal: Soft, Non-tender, No organomegaly. No solid or pulsatile mass Integumentary: Warm, Dry. No concerning lesions on exposed areas Neurologic: Alert, Oriented. Gross and fine motor intact, CN 2-12 intact Psychiatric: Cooperative, Appropriate mood & affect. Assessment/Plan Problem List Items Addressed This Visit None Visit Diagnoses Well adult exam - Primary Relevant Orders CBC (Completed) Comprehensive Metabolic Panel (Completed) Lipid Panel (Completed) Hemoglobin A1C (Completed) [facility]* Diagnosis Wellness examination- Primary documented in this encounter [facility] Work Phone: Evaluation note* Diagnosis Painful ejaculation- Primary Other specified disorder of male genital organs BPH without obstruction/lower urinary tract symptoms Prostatitis, unspecified prostatitis type Nocturia documented in this encounter [facility] Work Phone: Evaluation note* Diagnosis Prostatitis, unspecified prostatitis type- Primary Nocturia BPH without obstruction/lower urinary tract symptoms documented in this encounter [facility] Work Phone: [phone] note* Diagnosis Prostatitis, unspecified prostatitis type- Primary BPH without obstruction/lower urinary tract symptoms Elevated PSA Elevated prostate specific antigen (PSA) Other fatigue documented in this encounter [facility] Work Phone: [phone] note* Diagnosis Well adult exam- Primary Routine general medical examination at a health care facility documented in this encounter [facility] Work Phone: [phone] note* Diagnosis Right inguinal pain- Primary Abdominal pain, right lower quadrant documented in this encounter [facility] Work Phone: [phone] note* Diagnosis Elevated PSA Elevated prostate specific antigen (PSA) documented in this encounter [facility] Work Phone: [phone] note* Diagnosis Elevated PSA Elevated prostate specific antigen (PSA) Nocturia BPH without obstruction/lower urinary tract symptoms Prostatitis, unspecified prostatitis type documented in this encounter [facility] Work Phone: [phone] note* Diagnosis Elevated PSA- Primary Elevated prostate specific antigen (PSA) documented in this encounter [facility] Work Phone: [phone] note* Diagnosis Elevated PSA Elevated prostate specific antigen (PSA) Nocturia Malignant neoplasm of prostate (Multi) Malignant neoplasm of prostate documented in this encounter [facility] Work Phone: [phone] note* Diagnosis Prostate cancer (Multi)- Primary Malignant neoplasm of prostate Malignant neoplasm of prostate (Multi) Malignant neoplasm of prostate Prostate cancer (Multi) Malignant neoplasm of prostate Gastroesophageal reflux disease with esophagitis documented in this encounter [facility] Work Phone: [phone] note* Diagnosis Wellness examination- Primary Screening for cardiovascular condition Screening for other and unspecified cardiovascular conditions Mixed hyperlipidemia Malignant neoplasm of prostate (Multi) Malignant neoplasm of prostate documented in this encounter [facility] Work Phone: [phone] note* Diagnosis Screening for cardiovascular condition Screening for other and unspecified cardiovascular conditions documented in this encounter [facility] Work Phone: [phone] of Present illness Narrative* Irena Edouard MD - 02/19/2024 11:15 AM EST Patient ID: Basim Romero is a 48 y.o. male. Virtual or Telephone Consent An interactive audio and video telecommunication system which permits real time communications between the patient (at the originating site) and provider (at the distant site) was utilized to providethis telehealth service. Verbal consent was requested and obtained from Basim Romero on this date, 02/19/24 for a telehealth visit. Subjective Patient ID: Basim Romero is a 48 y.o. male. HPI Patient is here for Prostate MRI results. MRI showed a lesion 4 in the right midglandperipheralzone along the capsule. Most recent PSA was 12.13 on 01/13. He has been having prostatitis flare up. Sx have improved with Antibiotics and NSAIDS... Normal UA done on 11/14/23. Chronic LUT'S sx are mild and stable. Denies urgency and frequency. Denies dysuria. Denies hematuria. Nocturia x1. No medication for LUT'S. ED is not an issue and painful ejaculation has improved. Review of Systems Constitutional: Negative for chills and fever. HENT: Negative. Eyes: Negative. Respiratory: Negative for cough and shortness of breath. Cardiovascular: Negative for chest pain and leg swelling. Gastrointestinal: Negative for nausea. Endocrine: Negative. Genitourinary: Negative for difficulty urinating. Negative except for documented in HPI Allergic/Immunologic: Negative. Neurological: Alert & oriented X 3 Hematological: Denies blood thinners Psychiatric/Behavioral: Negative. Objective Physical Exam No PE done given the virtual nature of visit. Assessment/Plan Diagnoses and all orders for this visit: Elevated PSA Nocturia BPH without obstruction/lower urinary tract symptoms Prostatitis, unspecified prostatitis type All available PSA values reviewed, Options discussed. Questions answered. MRI reviewed Pros and cons of prostate biopsy reviewed. Other options discussed. Questions answered Cipro Rx given Diet changes for prostate health discussed and educational information given. Pros/Cons of prostatehealth supplements discussed. Treatment options for LUTS reviewed Discussed timed voiding. Discussed fluid and caffeine intake F/U MRI fusion Bx Cipro Rx given [facility] Regthc for referral (narrative)* Consultation (Routine) - Authorized Specialty Diagnoses / Procedures Referred By Kathy mathur Referred To Contact Primary Care Diagnoses Wellness examination Procedures Follow Up In Primary Care - Established Deacon Harper MD [address] [id number] Referral ID Status Reason Start Date Expiration Date V isits Requested Visits Authorized [id number] Authorized 07/06/2023 07/05/2024 1 1 [facility] Work Phone: Revawh for referral (narrative)No reason for referral information [facility] Work Phone: Reason for visit Narrative* Imaging (Routine) - Authorized Specialty Diagnoses / Procedures Referred By Kathy mathur Referred To Contact Radiology Diagnoses Elevated PSA Procedures MR prostate with soren boundaries if pirads 3 or above Irena Edouard MD [address] [place] [address] Phone: tel: fax: Referral ID Status Reason Start Date Expiration Date Visits Requested Visits Authorized [id number] Authorized Perform Procedure 01/25/2024 01/24/2025 1 1 [facility] Work Phone: Rekppe for visit Narrative* Auth/Cert Specialty Diagnoses / Procedures Referred By Kathy mathur Referred To Contact Diagnoses Elevated PSA Elevated PSA [R97.20] Procedures CO PROSTATE NEEDLE BIOPSY ANY APPROACH CHG US TRANSRECTAL CHG US GUIDANCE NEEDLE PLACEMENT IMG S&I BIOPSY, PROSTATE, WITH IMAGING GUIDANCE ULTRASOUND, PROSTATE, ENDORECTAL Ultrasound Guidance for Prostate Fusion Bx Irena Edouard MD [address] [place] [address] Phone: tel: fax: [facility] [place] [address] [place] [phone] fax: Referral ID Status Reason Start Date Expiration Date Visits Re quested Visits Authorized [id number] 1 1 [facility] Work Phone: Reason for visit Narrative* Auth/Cert Specialty Diagnoses / Procedures Referred By Kathy mathur Referred To Contact Diagnoses Prostate cancer (Multi) Prostate cancer (Multi) [C61] Procedures CO PLMT INTERSTITIAL DEV RADIAT TX PROSTATE 1/MULT Insertion Fiducial Marker Prostate Irena Edouard MD [address] [place] [address] Phone: tel: fax: [facility] [place] [address] [place] [phone] fax: Referral ID Status Reason Start Date Expiration Date Visits Re quested Visits Authorized [id number] 1 1 [facility] Work Phone: Reason for visit Narrative* Imaging (Routine) - Authorized Specialty Diagnoses / Procedures Referred By Kathy mathur Referred To Contact Radiology Diagnoses Screening for cardiovascular condition Procedures CT cardiac scoring wo IV contrast Deacon Harper MD [address] [address] Phone: tel: fax: Referral ID Status Reason Start Date Expiration Date Visits Requested Visits Authorized [id number] Authorized Perform Procedure 07/08/2024 07/08/2025 1 1 [facility] Work Phone: Summary Purpose Family History No Family History Records Found Father Name Dates Details Family history of pancreatic cancer(V16.0, Z80.0) Status:Active Family history of cerebrovas cular accident (CVA)(V17.1, Z82.3) Status:Active Father Name Dates Details Family history of pancreatic cancer(V16.0, Z80.0) Status:Active Family history of cerebrovas cular accident (CVA)(V17.1, Z82.3) Status:Active Father Name Dates Details Family history of pancreatic cancer(V16.0, Z80.0) Status:Active Family history of cerebrovas cular accident (CVA)(V17.1, Z82.3) Status:Active Relationship Condition Age at Onset Recorded Date/T kandace father Malignant neoplasm of pancreas Unknown grandfather Malignant neoplasm of prostate Unknown Advance Directives No Advanced Directives Records Found Date Activated Date Inactivated Comments 03/05/2024 9:18 AM Question Answer Comments Plan of Care: Code Status Discussion Completed Decision Maker: Patient Chief Complaint and Reason for Visit Chief Complaint Admit Date Amb Documentation March 20, 2024 4 :07pm PROSTATE CA March 22, 2024 1 0:14am Rad Tx April 29, 2024 11: 45am PROSTATE April 29, 2024 12: 26pm Reason for Visit Admit Date Cancer of prostate with inte rmediate recurrence risk (stage T2b-c or Gleaso March 22, 2024 10:14am Chief Complaint Admit Date PROSTATE CA March 22, 2024 1 0:14am PROSTATE April 29, 2024 12: 26pm OTV May 16, 2024 7:4 7am OTV May 21, 2024 7:50 am OTV May 29, 2024 7:46 am OTV June 06, 2024 8:1 4am OTV June 13, 2024 8:0 3am OTV June 18, 2024 7:5 0am Rad Tx June 18, 2024 8:0 0am Amb Documentation June 19, 2024 9:1 1am 1 MONTH F/U POST RT July 19, 2024 8:03a m Reason for Visit Admit Date Cancer of prostate with inte rmediate recurrence risk (stage T2b-c or Gleaso March 22, 2024 10:14am Cancer of prostate with inte rmediate recurrence risk (stage T2b-c or Gleaso May 16, 2024 7:47am Cancer of prostate with inte rmediate recurrence risk (stage T2b-c or Gleaso May 21, 2024 7:50am Cancer of prostate with inte rmediate recurrence risk (stage T2b-c or Gleaso May 29, 2024 7:46am Cancer of prostate with inte rmediate recurrence risk (stage T2b-c or Gleaso June 06, 2024 8:14am Cancer of prostate with inte rmediate recurrence risk (stage T2b-c or Gleaso June 13, 2024 8:03am Cancer of prostate with inte rmediate recurrence risk (stage T2b-c or Gleaso June 18, 2024 7:50am BPH without obstruction/lower urinary tr act symptoms July 19, 2024 8:03am Cancer of prostate with inte rmediate recurrence risk (stage T2b-c or Gleaso July 19, 2024 8:03am Elevated PSA July 19, 2024 8:03a m Nocturia July 19, 2024 8:03a m Prostatitis July 19, 2024 8:03a m Additional Source Comments (unrecognized sect ion and content) No Status Records FoundNo Status Records FoundNo Status Records FoundNo Status Records FoundNo Status Records FoundNo Status Records FoundNo Status Records FoundNo Status Records Found INFORMATION SOURCE (unrecogn ized section and content) DATE CREATED AUTHOR 03/07/2019 [employer] DATE CREATED AUTHOR AUTHOR'S ORGANIZ ATION 02/28/2020 [facility] DATE CREATED AUTHOR AUTHOR'S ORGANIZ ATION 08/12/2022 [facility] DATE CREATED AUTHOR AUTHOR'S ORGANIZ ATION 02/13/2024 [facility] DATE CREATED AUTHOR AUTHOR'S ORGANIZ ATION 07/10/2024 [facility] DATE CREATED AUTHOR AUTHOR'S ORGANIZ ATION 08/12/2024 [facility] DATE CREATED AUTHOR AUTHOR'S ORGANIZ ATION 08/15/2024 [facility] DATE CREATED AUTHOR AUTHOR'S ORGANIZ ATION 09/14/2024 [facility] <item> Privacy Markings (unrecogniz ed section and content) Section Author: Glory [employer] PROHIBITION ON REDISCLOSURE OF CONFIDENTIAL INFORMATION This notice accompanies a disclosure of information concerning a client made to you with the consent of such client. Reason for Visit (unrecogniz ed section and content) Reason Comments Annual Exam Reason Comments Groin Pain Reason Comments 6 WEEK FOLLOW UP Reason Comments Follow-up Reason Comments Annual Exam Reason Comments Groin Pain Penis Pain Reason Comments Annual Exam Specialty Diagnoses / Procedures Referred By Contac t Referred To Contact Primary Care Diagnoses Wellness examination Procedures Follow Up In Primary Care - Established Deacon Harper MD Phone: tel: fax: Referral ID Status Reason Start Date Expiration Date V isits Requested Visits Authorized [id number] Authorized 07/06/2023 07/05/2024 1 1 Care Teams (unrecognized sec tion and content) Team Status: Active Member Role Status Dates Dr. Deacon Harper MD Primary Care Provider Active Team Status: Inactive Member Role Status Dates Dr. Deacon Harper MD Primary Care Provider Active Start: March 22, 2024 End: March 22, 2024 Dr. Alex Lopez DO Attending Provider Active Start: March 22, 2024 End: March 22, 2024 Dr. Irena Edouard II, MD Referring Provider Active S tart: March 22, 2024 End: March 22, 2024 Team Status: Active Member Role Status Dates Dr. Deacon Harper MD Primary Care Provider Active Start: April 29, 2024 Dr. Alex Lopez DO Attending Provider Active Start: April 29, 2024 Dr. Alex Lopez DO Referring Provider Active Start: April 29, 2024 Team Status: Inactive Member Role Status Dates Dr. Deacon Harper MD Primary Care Provider Active Start: April 29, 2024 End: April 29, 2024 Dr. Alex Lopez DO Attending Provider Active Start: April 29, 2024 End: April 29, 2024 Dr. Alex Lopez DO Referring Provider Active Start: April 29, 2024 End: April 29, 2024 Team Status: Active Member Role Status Dates Dr. Deacon Harper MD Primary Care Provider Active Start: May 09, 2024 Dr. Alex Lopez DO Attending Provider Active Start: May 09, 2024 Dr. Alex Lopez DO Referring Provider Active Start: May 09, 2024 Team Status: Active Member Role Status Dates Dr. Deacon Harper MD Primary Care Provider Active Start: May 10, 2024 Dr. Alex Lopez DO Attending Provider Active Start: May 10, 2024 Dr. Alex Lopez DO Referring Provider Active Start: May 10, 2024 Team Status: Inactive Member Role Status Dates Dr. Deacon Harper MD Primary Care Provider Active Start: May 16, 2024 End: May 16, 2024 Dr. Alex Lopez DO Attending Provider Active Start: May 16, 2024 End: May 16, 2024 Dr. Alex Lopez DO Referring Provider Active Start: May 16, 2024 End: May 16, 2024 Team Status: Inactive Member Role Status Dates Dr. Deacon Harper MD Primary Care Provider Active Start: May 21, 2024 End: May 21, 2024 Dr. Alex Lopez DO Attending Provider Active Start: May 21, 2024 End: May 21, 2024 Dr. Alex Lopez DO Referring Provider Active Start: May 21, 2024 End: May 21, 2024 Team Status: Inactive Member Role Status Dates Dr. Deacon Harper MD Primary Care Provider Active Start: May 29, 2024 End: May 29, 2024 Dr. Alex Lopez DO Attending Provider Active Start: May 29, 2024 End: May 29, 2024 Dr. Alex Lopez DO Referring Provider Active Start: May 29, 2024 End: May 29, 2024 Team Status: Inactive Member Role Status Dates Dr. Deacon Harper MD Primary Care Provider Active Start: June 06, 2024 End: June 06, 2024 Dr. Alex Lopez DO Attending Provider Active Start: June 06, 2024 End: June 06, 2024 Dr. Alex Lopez DO Referring Provider Active Start: June 06, 2024 End: June 06, 2024 Team Status: Inactive Member Role Status Dates Dr. Alex Lpoez DO Attending Provider Active Start: June 13, 2024 End: June 13, 2024 Dr. Alex Lopez DO Referring Provider Active Start: June 13, 2024 End: June 13, 2024 Team Status: Inactive Member Role Status Dates Dr. Deacon Harper MD Primary Care Provider Active Start: June 18, 2024 End: June 18, 2024 Dr. Deacon Harper MD Referring Provider Active Start: June 18, 2024 End: June 18, 2024 Dr. Alex Lopez DO Attending Provider Active Start: June 18, 2024 End: June 18, 2024 Team Status: Active Member Role Status Dates Dr. Deacon Harper MD Primary Care Provider Active Start: June 18, 2024 Dr. Alex Lopez DO Attending Provider Active Start: June 18, 2024 Dr. Alex Lopez DO Referring Provider Active Start: June 18, 2024 Team Status: Active Member Role Status Dates Dr. Deacon Harper MD Primary Care Provider Active Start: June 19, 2024 Dr. Alex Lopez DO Attending Provider Active Start: June 19, 2024 Team Status: Inactive Member Role Status Dates Dr. Deacon Harper MD Primary Care Provider Active Start: July 19, 2024 End: July 19, 2024 Dr. Deacon Harper MD Referring Provider Active Start: July 19, 2024 End: July 19, 2024 Dr. Alex Lopez DO Attending Provider Active Start: July 19, 2024 End: July 19, 2024 Appeals Nurse Relationship Specialty Start Date End Date Deacon Harper MD [address] [phone] PCP - General 03/07/19 Deacon Harper MD [address] [place] [address] PCP - [place] [facility] PCP 10/21/22 Appeals Nurse Relationship Specialty Start Date End Date Deacon Harper MD [address] [address] PCP - [place] [facility] PCP 10/21/22 Appeals Nurse Relationship Specialty Start Date End Date Deacon Harper MD [address] [address] PCP - [place] [facility] PCP 10/21/22 Appeals Nurse Relationship Specialty Start Date End Date Deacon Harper MD [address] [address] PCP - [place] [facility] PCP 10/21/22 Appeals Nurse Relationship Specialty Start Date End Date Deacon Harper MD [address] [place] [address] PCP - General 03/07/19 Appeals Nurse Relationship Specialty Start Date End Date Deacon Harper MD PCP - General 03/07/19 Deacon Harper MD [address] [place] [address] [place] [address], [place] [address] PCP - [place] [facility] PCP 10/21/22 Appeals Nurse Relationship Specialty Start Date End Date Deacon Harper MD [address] [place] [address] PCP - [place] [facility] P[facility] 10/21/22 Deacon Harper MD [address] [place] [address] [place] [address], [place] [address] PCP - General Family Medicine 02/09/24 Appeals Nurse Relationship Specialty Start Date End Date Deacon Harper MD [address] [place] [address] PCP - [facility] PCP 10/21/22 Deacon Harper MD [address] [place] [address] PCP - General Family Medicine 02/09/24 Appeals Nurse Relationship Specialty Start Date End Date Deacon Harper MD [address] [place] [address] PCP - [facility] PCP 10/21/22 Deacon Harper MD [address] [place] [address] PCP - General Family Medicine 02/09/24 Appeals Nurse Relationship Specialty Start Date End Date Deacon Harper MD [address] [place] [address] PCP - [place] [facility] PCP 10/21/22 Deacon Harper MD [address] [place] [address] PCP - General Family Medicine 02/09/24 Appeals Nurse Relationship Specialty Start Date End Date Deacon Harper MD [address] [place] [address] [place] [address], [place] [address] PCP - [place] [facility] PCP 10/21/22 Deacon Harper MD [address] [place] [address] [place] [address], [place] [address] PCP - General Family Medicine 02/09/24 Team Status: Active Member Role Status Dates Dr. Deacon Harper MD Primary Care Provider Active Start: March 20, 2024 Maria Porter LPN Attending Provider Active S tart: March 20, 2024 Team Status: Active Member Role Status Dates Dr. Deacon Harper MD Primary Care Provider Active Start: April 29, 2024 Dr. Alex Lopez DO Attending Provider Active Start: April 29, 2024 Appeals Nurse Relationship Specialty Start Date End Date Deacon Harper MD [address] [place] [place] [address], [place] [address] PCP - [facility] PCP 10/21/22 Deacon Harper MD [address] [place] [address] PCP - General Family Medicine 02/09/24 Continuous Active and Recently Administ ered Medications (unrecognized section and content) Medication Order 03/03/2024 03/04/2024 03/05/2024 lactated Ringer's infusion 100 mL/hr, intravenous, Continuous, Starting on Mon03/05/24 at 1145, For 1 day, Recovery (only) 1145 (Due) PRN Medication Order 03/03/2024 03/04/2024 03/05/2024 labetaloL (Normodyne,Trandate) injection 5 mg 5 mg, intravenous, Administer over 1 Minutes, Once as needed, systolic blood pressure greater than 180 mmHg, dystolic blood pressure greater than 100 mmHg and heart rate greater than 60 BPM, Starting on Mon03/05/24 at 1119, For 1 dose, Recovery (only) morphine injection 2 mg 2 mg, intravenous, Every 5 min PRN, pain moderate (4-6), first line, Starting on Mon03/05/24 at 1119, Recovery (only), Max total of 20 mg regardless of dose. morphine injection 4 mg 4 mg, intravenous, Every 5 min PRN, pain severe (7-10), first line, Starting on Mon03/05/24 at 1119, Recovery (only), Max total of 20 mg regardless of dose. ondansetron (Zofran) injection 4 mg 4 mg, intravenous, Once as needed, nausea/vomiting, first line, Starting on Mon03/05/24 at 1119, For 1 dose, Recovery (only), When administering via IV Push, administer over 3-5 minutes. oxyCODONE (Roxicodone) immediate release tablet 5 mg 5 mg, oral, Every 4 hours PRN, pain mild (1-3), first line, Starting on Mon03/05/24 at 1119, Recovery (only), When able to take oral medications., If ordered PRN for pain, nurse is permitted to administer this medication for higher pain scores based on patient preference? Yes promethazine (Phenergan) 6.25 mg in sodium chloride 0.9% 50 mL IV 6.25 mg, intravenous, Administer over 15 Minutes, Once as needed, Nausea/vomiting, second line, Starting on Mon03/05/24 at 1119, For 1 dose, Recovery (only) Scheduled Medication Order 04/21/2024 04/22/2024 04/23/2024 levoFLOXacin (Levaquin) 500 mg in dextrose 5% IV 100 mL (COMPLETED) 500 mg, intravenous, at 100 mL/hr, Administer over 60 Minutes, Once, On Mon04/23/24 at 0945, For 1 dose, Intraprocedure, premix bag, Dosing of this medication varies based on severity of illness. Does this patient have sepsis or concern for sepsis (probable or documented infection plus systemic manifestations of infection)? No, Suspected Indication (Select all that apply): Surgical Prophylaxis, Indications: Surgical Prophylaxis 1012 (New Bag - Prov ider: Dorothy Fine RN)1112 (Due: Stopped - Provider: Dorothy Fine RN) oxyCODONE (Roxicodone) immediate release tablet 5 mg 5 mg, oral, Once, On Mon04/23/24 at 1300, For 1 dose, If ordered PRN for pain, nurse is permitted to administer this medication for higher pain scores based on patient preference? Yes 1300 (Due) oxygen (O2) therapy inhalation, Continuous - Inhalation, First dose on Mon04/23/24 at 1230, Recovery (only), Device: Simple Face Mask, Rate in Liters per minute: 8 LPM 1230 (Due)2000 (Due) Continuous Medication Order 04/21/2024 04/22/2024 04/23/2024 lactated Ringer's infusion 100 mL/hr, intravenous, Continuous, Starting on Mon04/23/24 at 1015, For 1 day, Preprocedure 1002 (New Bag - Prov ider: Dorothy Fine RN)1121 (Paused - Provider: Irena Conley MD PhD - Comment: Switch to gravity)1122 (Restarted - Provider: Irena Conley MD PhD)1134 (Continued by Anesthesia - Provider: Irena Conley MD PhD)1159 (Anesthesia Volume Adjustment - Provider: Irena Conley MD PhD) lactated Ringer's infusion 125 mL/hr, intravenous, Continuous, Starting on Mon04/23/24 at 1230, For 1 day, Recovery (only) 1230 (Due) PRN Medication Order 04/21/2024 04/22/2024 04/23/2024 HYDROmorphone (Dilaudid) injection 0.5 mg 0.5 mg, intravenous, Every 5 min PRN, pain severe (7-10), first line, Starting on Mon04/23/24 at 1207, Recovery (only) prochlorperazine (Compazine) injection 10 mg 10 mg, intravenous, Every 8 hours PRN, nausea/vomiting, first line, Starting on Mon04/23/24 at 1207, Recovery (only) sodium chloride bacteriostatic 0.9 % injection (CANCELED) As needed, Starting on Mon04/23/24 at 1145, Intraprocedure 1145 (Given - Provid er: rIena Edouard MD) Goals (unrecognized section and content) Goals may be documented in a n alternate sectionGoals may be documented in an alternate section FOR RECORDS PERTAINING TO PATIENTS WHO ARE OR HAVE BEEN ENROLLED IN A CHEMICAL DEPENDENCY/SUBSTANCEABUSE PROGRAM, SOME INFORMATION MAY BE OMITTED. This clinical summary was aggregated from multiple sources. Caution should be exercised in using it in the provision of clinical care. This summary normalizes information from multiple sources, and as a consequence, information in this document may materially change the coding, format and clinical context of patient data. In addition, data may be omitted in some cases. CLINICAL DECISIONS SHOULD BE BASED ON THE PRIMARY CLINICAL RECORDS. [employer] provides no warranty or guarantee of the accuracy or completeness of information in this document.
[2024-09-20 08:41] LABS: PSA,Total- Diagnostic 0.17 ng/mL (0.00-4.00)
== END | disposition home or self-care (01) ==
PROVIDERS: PCP Family Medicine; Referring Provider Student in an Organized Health Care Education/Training Program; Visit Provider Student in an Organized Health Care Education/Training Program
DX: C61 Malignant neoplasm of prostate (principal)
CPT/HCPCS: 36415; 84153

== ENCOUNTER → 2024-12-27 | Outpatient (CLI) | payer BC, SELFPAY ==
[2024-12-27 10:00] LABS: PSA,Total- Diagnostic 0.63 ng/mL (0.00-4.00)
== END | disposition home or self-care (01) ==
LOC: LAB 08:41
PROVIDERS: PCP Family Medicine; Referring Provider Student in an Organized Health Care Education/Training Program; Visit Provider Student in an Organized Health Care Education/Training Program
DX: C61 Malignant neoplasm of prostate (principal)
CPT/HCPCS: 36415; 84153; 84403